=== PATIENT | female | born 1990 | race Two or more races ===

== ENCOUNTER 2024-03-25 07:45 | Outpatient (REF) | payer MEDICAID, SELFPAY ==
[2024-03-25 09:29] LABS: Appearance Urine Cloudy; Color Urine Yellow; Glucose Urine UA Negative (Negative); Leukocyte Esterase Urine Negative (Negative); Nitrite Urine Negative (Negative); Specific Gravity - Urine >= 1.030 (1.005-1.025); Urine Blood Negative (Negative); Urine Ketones Negative (Negative); Urine Protein >=1000 (4+) mg/dL (Neg-Trace)
[2024-03-25 09:36] LABS: Alanine Aminotransferase 18 U/L (0-31); Albumin Level 3.8 g/dL (3.5-5.0); Alkaline Phosphatase 69 U/L (39-117); Anion Gap 9 (12-20); Aspartate Amino Transferase 19 U/L (5-31); Bilirubin Total 0.4 mg/dL (0.0-1.0); Blood Urea Nitrogen 11 mg/dL (9-16); Calcium 9.1 mg/dL (8.4-10.2); Carbon Dioxide 25 mmol/L (22-29); Chloride 107 mmol/L (96-108); Estimated Glomerular Filt Rate 59; Glucose Random 145 mg/dL (60-115); Potassium 3.9 mmol/L (3.3-5.1); Sodium 137 mmol/L (135-145); Total Protein 6.9 g/dL (6.5-8.0)
[2024-03-25 09:53] LABS: Bacteria Urine Trace (None Seen); RBC Urine 0-2 /HPF (0-2); Squamous Epithelial Cell Urine >20 /HPF (0-2); WBC Urine 0-5 /HPF (0-5)
[2024-03-25 10:29] LABS: Creatinine Urine 216.91 mg/dL; Microalbumin Urine > 2000.0 mg/L
== END 2024-03-25 07:46 | disposition home or self-care (01) ==
LOC: HO.LAB 07:45
PROVIDERS: PCP Internal Medicine; Visit Provider Internal Medicine
DX: R80.8 Other proteinuria (principal)
CPT/HCPCS: 36415; 80053; 81001; 82043; 82570

== ENCOUNTER 2024-04-10 14:30 | Outpatient (REF) | payer MEDICAID, SELFPAY ==
[2024-04-10 18:32] LABS: HCG Quantitative < 2 mIU/mL
== END 2024-04-10 14:31 | disposition home or self-care (01) ==
LOC: HO.CHCLDS 14:30
PROVIDERS: Visit Provider Internal Medicine
DX: N92.6 Irregular menstruation, unspecified (principal)
CPT/HCPCS: 36415; 84702

== ENCOUNTER 2024-04-28 14:23 | Outpatient (AMB) | payer MEDICAID, SELFPAY ==
--- NOTE | 2024-04-28 14:32 | HO.NEPHOV ---
Vital Signs 04/28/24 14:36 Height 5 ft Weight 154 lb BMI 30.1 BP 120/80 Blood Pressure Location Rt brachial Position Sitting Intake Visit Reasons: Proteinuria/ Conf Traffic Enumerator Required: No Accompanied by: Sister Allergies No Known Allergies Allergy (Verified 04/28/24 14:40) HPI Comments Details: Michele is a 34 year old patient who moved to [facility] from [place] who is known to have proteinuria for a long time. She was seen for this by renal MD in [place] in the past and had work up including renal biopsy which showed FSGS. She was treated with prednisone as well as cyclosporine in the past . Currently she is on finerenone and lisinopril 2.5 mg. She says that her ACEI could not be increased as it was dropping her BP. She has no edema and denies any frothy/foamy urine. Her last serum creatinine was 1.08. She has no H/O DVT's or PE's. She denies orthostatic symptoms. She has no family H/O FSGS. [facility] Medical History (Updated 04/28/24 @ 22:14 by Richard Betancur MD) Proteinuria Surgical History Hx of tubal ligation Family History (Updated 04/28/24 @ 14:34 by Cate Zarate MA) Paternal Grandmother Hypertension Diabetes High cholesterol Paternal Grandfather Diabetes High cholesterol Hypertension Social History (Updated 04/28/24 @ 14:33 by Cate Zarate MA) Alcohol intake: current Comment: Socially Patient Tobacco Use Status: Never used Tobacco Review of Systems Const All systems reviewed & are unremarkable except as noted in HPI and below Physical Exam Vital Signs: Last Vital Signs BP 120/80 04/28/24 14:36 BMI result Body Mass Index 30.1 Const General: comfortable and no acute distress Orientation/consciousness: patient oriented x3 HEENT Head: Yes normocephalic Mouth: Normal oral and palatal mucosa present Eyes EOM: EOMs intact bilaterally Neck Neck: Yes supple Resp Auscultation: clear to auscultation bilaterally Cardio Jugular venous distension: no JVD Rate: regular rate GI Palpation (GI): Soft to palpation Auscultation: normal bowel sounds General: Yes no CVA tenderness Back/Spine/Pelvis Back: no CVA tenderness Skin General skin exam: no rashes or lesions noted Neuro General: patient oriented x3 and moves all extremities Extrem General: Yes no pedal edema Results Reviewed Nephrology Results: Sodium 137 mmol/L (135-145) 03/25/24 Potassium 3.9 mmol/L (3.3-5.1) 03/25/24 Chloride 107 mmol/L (96-108) 03/25/24 Carbon Dioxide 25 mmol/L (22-29) 03/25/24 BUN 11 mg/dL (9-16) 03/25/24 Creatinine 1.08 mg/dL (0.5-1.4) 03/25/24 Calcium 9.1 mg/dL (8.4-10.2) 03/25/24 Urine Protein >=1000 (4+) mg/dL (Neg-Trace) H 03/25/24 Urine Creatinine 216.91 mg/dL 03/25/24 Assessment & Plan Assessment & Plan (1) Proteinuria: Code(s): R80.9 - Proteinuria, unspecified Category: Medical Qualifiers: Proteinuria type: other Qualified Code(s): R80.8 - Other proteinuria (2) FSGS (focal segmental glomerulosclerosis): Code(s): N05.1 - Unspecified nephritic syndrome with focal and segmental glomerular lesions Category: Medical Plan Michele has H/O biopsy proven FSGS which was treated with prednisone as well as cyclosporin in [place]. Currently she is on Finerenone as well as lisinopril 2.5 mg daily which I increased to 2.5 mg bid. She needs to cut back sodium in the diet. I ordered further work up and requested her renal records from [place]. She may need a repeat renal biopsy as well as addition of further medications based on evolving data. She should avoid NSAID's. Time spent retrieving records, reviewing them, patient encounter and documentation 58 minutes. Answered all questions. F/U given Orders: Orders Proteinase 3 PR3 Antibodies Today R80.9 - Proteinuria, unspecified Immunofixation Pnl, Serum Today R80.9 - Proteinuria, unspecified Phospholipase A2 Receptor Pnl Today R80.9 - Proteinuria, unspecified Blood Urea Nitrogen Today R80.9 - Proteinuria, unspecified Creatinine Today R80.9 - Proteinuria, unspecified Complete Blood Count Auto Diff Today R80.9 - Proteinuria, unspecified Protein, 24 Hr Urine Group Today R80.8 - Other proteinuria Anti DNA DS Antibody Today R80.9 - Proteinuria, unspecified Myeloperoxidase Antibody Today R80.9 - Proteinuria, unspecified Anti Glomerular Basement Memb Today R80.9 - Proteinuria, unspecified Complement C3 Today R80.9 - Proteinuria, unspecified Complement C4 Today R80.9 - Proteinuria, unspecified Hepatitis C Antibody Reflex Today R80.9 - Proteinuria, unspecified Hepatitis B Surface Antigen Today R80.9 - Proteinuria, unspecified Electrolytes Today R80.9 - Proteinuria, unspecified Immunofixation, Random Urine Today R80.9 - Proteinuria, unspecified Rheumatoid Factor Today R80.9 - Proteinuria, unspecified Medications: New lisinopril 2.5 mg PO BID 60 tabs 1RF Coding Level of Care Code New Pt Level 5 (20649) Diagnoses Other proteinuria R80.8 Proteinuria type: other FSGS (focal segmental glomerulosclerosis) N05.1
[2024-04-28 14:36] VITALS: BP 120/80; BMI 30.1
== END 2024-04-28 15:03 | disposition home or self-care (01) ==
PROVIDERS: PCP Internal Medicine; Referring Provider Internal Medicine; Visit Provider Internal Medicine Nephrology
DX: R80.8 Other proteinuria (principal); N05.1 Unspecified nephritic syndrome with focal and segmental glomerular lesions
CPT/HCPCS: 99205

== ENCOUNTER → 2024-04-28 14:23 | Outpatient (BNVA) | payer MEDICAID, SELFPAY | PROVIDERS: PCP Internal Medicine; Referring Provider Internal Medicine; Visit Provider Internal Medicine Nephrology | DX: R80.8 Other proteinuria (principal); N05.1 Unspecified nephritic syndrome with focal and segmental glomerular lesions | CPT/HCPCS: 99202 ==

== ENCOUNTER 2024-04-30 09:19 | Outpatient (REF) | payer MEDICAID, SELFPAY ==
[2024-04-30 09:45] LABS: MANUAL DIFF FLAG NO
[2024-04-30 10:11] LABS: Basophils Absolute Auto 0.1 X10*3/uL (0.0-0.2); Basophils Percent Auto 0.6 % (0-2); Eosinophils Absolute Auto 0.3 X10*3/uL (0.0-0.4); Eosinophils Percent Auto 3.5 % (0-4); Hematocrit 39.6 % (37.0-47.0); Hemoglobin 13.3 g/dl (12.0-16.0); Imm Gran Abs Auto 0.01 X10*3/uL (0.00-0.03); Imm Gran Pct Auto 0.1 % (0.0-0.4); Lymphocytes Absolute Auto 1.9 X10*3/uL (1.2-4.9); Lymphocytes Percent Auto 22.3 % (20-40); Mean Corpuscular HGB Conc 33.6 g/dl (31.0-35.0); Mean Corpuscular Hemoglobin 29.2 pg (27.0-33.0); Mean Corpuscular Volume 86.8 fL (80.0-98.0); Mean Platelet Volume 11.1 fL (9.4-12.3); Monocytes Absolute Auto 0.5 X10*3/uL (0.1-1.2); Monocytes Percent Auto 6.1 % (2-11); Neutrophils Absolute Auto 5.6 x10*3/uL (2.0-8.3); Neutrophils Percent Auto 67.4 % (45-73); Platelet Count 379 X10*3/uL (160-400); Red Blood Count 4.56 X10*6/uL (4.20-5.50); Red Cell Distribution Width 12.8 % (11.0-16.0); White Blood Count 8.3 X10*3/uL (4.8-10.8)
[2024-04-30 10:44] LABS: Anion Gap 12 (12-20); Blood Urea Nitrogen 11 mg/dL (9-16); Carbon Dioxide 22 mmol/L (22-29); Chloride 111 mmol/L (96-108); Estimated Glomerular Filt Rate > 60; Potassium 3.7 mmol/L (3.3-5.1); Rheumatoid Factor < 13.0 IU/mL (<15.0); Sodium 141 mmol/L (135-145)
[2024-04-30 11:06] LABS: HBsAGNum1 0.35 S/CO (0.00-0.99); Hepatitis B Surface Antigen Negative (Negative); ~HepC Num1 0.13 S/CO (0.00-0.79); ~Hepatitis C Antibody Nonreactive (Nonreactive)
[2024-05-01 16:08] LABS: Anti DNA DS Antibody 1 IU/mL; Anti Glomerular Basement Memb <1.0 AI; Myeloperoxidase Antibody <1.0 AI; Proteinase 3 PR3 Antibodies <1.0 AI
[2024-05-01 22:48] LABS: IgA 96 mg/dL (47-310); IgG 994 mg/dL (600-1640); IgM 181 mg/dL (50-300)
[2024-05-05 11:09] LABS: Complement C3 157 mg/dL (83-193)
[2024-05-08 22:59] LABS: Phospholipase A2 IgG ELISA 7 RU/mL; Phospholipase A2 IgG IFA NEGATIVE (NEGATIVE)
== END 2024-04-30 09:20 | disposition home or self-care (01) ==
LOC: HO.LAB 09:19
PROVIDERS: PCP Internal Medicine; Visit Provider Internal Medicine Nephrology
DX: R80.9 Proteinuria, unspecified (principal)
CPT/HCPCS: 80051; 82565; 82784; 83520; 84520; 85025; 86021; 86160; 86225; 86255; 86334; 86335; 86431; 86803; 87340

== ENCOUNTER 2024-05-26 12:49 | Outpatient (REF) | payer MEDICAID, SELFPAY ==
[2024-05-26 14:17] LABS: Creatinine, mg/dL 134.15
[2024-05-26 15:15] LABS: Protein mg/dL 476 mg/dL
[2024-05-26 16:42] LABS: Creatinine, 24Hr Urine 1.1 G/Day (1.0-2.0); Protein 24 Hr Urine 4046 mg/Day (<150); Total Volume 24 Hour Urine 850 mL
== END 2024-05-26 12:50 | disposition home or self-care (01) ==
LOC: HO.LNP 12:49
PROVIDERS: Visit Provider Internal Medicine Nephrology
DX: R80.8 Other proteinuria (principal)
CPT/HCPCS: 84156

== ENCOUNTER 2024-05-30 15:15 | Outpatient (AMB) | payer MEDICAID, SELFPAY ==
--- NOTE | 2024-05-30 15:16 | HO.NEPHOV_ITS ---
Vital Signs 05/30/24 15:17 Height 5 ft Weight 154 lb BMI 30.1 BP 152/82 H Blood Pressure Location Rt brachial Position Sitting Pulse 100 Pulse Source Pulse Oximeter Pulse Oximetry (%) 97 Oxygen Delivery Method Room Air Intake Visit Reasons: Proteinuria-Conf Patient Ombudsperson Required: No Accompanied by: Sister Allergies No Known Allergies Allergy (Verified 05/30/24 15:19) HPI Comments Details: Michele is a 34 year old patient who moved to [facility] from [place] who is know n to have proteinuria for a long time. She was seen for this by renal MD in [place] in the past and had work up including renal biopsy which showed FSGS. She was treated with prednisone as well as cyclosporine in the past . Currently she is on finerenone and lisinopril 2.5 mg. She says that her ACEI could not be increased as it was dropping her BP. She has no edema and denies any frothy/foamy urine. Her last serum creatinine was 1.08. She has no H/O DVT's or PE's. She denies orthostatic symptoms. She has no family H/O FSGS. [facility] Medical History (Updated 05/30/24 @ 15:33 by Richard Betancur MD) Proteinuria Surgical History Hx of tubal ligation Family History (Updated 04/28/24 @ 14:34 by Cate Zarate MA) Paternal Grandmother Hypertension Diabetes High cholesterol Paternal Grandfather Diabetes High cholesterol Hypertension Social History (Updated 04/28/24 @ 14:33 by Cate Zarate MA) Alcohol intake: current Comment: Socially Patient Tobacco Use Status: Never used Tobacco Review of Systems Const All systems reviewed & are unremarkable except as noted in HPI and below Physical Exam Const General: comfortable and no acute distress Orientation/consciousness: patient oriented x3 HEENT Head: Yes normocephalic Mouth: Normal oral and palatal mucosa present Eyes EOM: EOMs intact bilaterally Neck Neck: Yes supple Resp Auscultation: clear to auscultation bilaterally Cardio Jugular venous distension: no JVD Rate: regular rate GI Palpation (GI): Soft to palpation Auscultation: normal bowel sounds General: Yes no CVA tenderness Back/Spine/Pelvis Back: no CVA tenderness Skin General skin exam: no rashes or lesions noted Neuro General: patient oriented x3 and moves all extremities Extrem General: Yes no pedal edema Results Reviewed Nephrology Results: Hgb 13.3 g/dl (12.0-16.0) 04/30/24 WBC 8.3 X10*3/uL (4.8-10.8) 04/30/24 Plt Count 379 X10*3/uL (160-400) 04/30/24 Sodium 141 mmol/L (135-145) 04/30/24 Potassium 3.7 mmol/L (3.3-5.1) 04/30/24 Chloride 111 mmol/L (96-108) H 04/30/24 Carbon Dioxide 22 mmol/L (22-29) 04/30/24 BUN 11 mg/dL (9-16) 04/30/24 Creatinine 1.01 mg/dL (0.5-1.4) 04/30/24 Calcium 9.1 mg/dL (8.4-10.2) 03/25/24 Urine Protein >=1000 (4+) mg/dL (Neg-Trace) H 4 Urine Creatinine 216.91 mg/dL 03/25/24 Assessment & Plan Assessment & Plan (1) FSGS (focal segmental glomerulosclerosis): Code(s): N05.1 - Unspecified nephritic syndrome with focal and segmental glomerular lesions Category: Medical (2) Proteinuria: Code(s): R80.9 - Proteinuria, unspecified Category: Medical Qualifiers: Proteinuria type: other Qualified Code(s): R80.8 - Other proteinuria (3) Dyslipidemia: Code(s): E78.5 - Hyperlipidemia, unspecified Category: Medical Plan Michele has H/O biopsy proven FSGS which was treated with prednisone as well as cyclosporin in [place]. Currently she is on Finerenone as well as lisinopril 2.5 mg daily which I increased to 5 mg bid. She needs to cut back sodium in the diet. I have requested her renal records from [place]. She may need a repeat renal biopsy as well as addition of further medications based on evolving data. She should avoid NSAID's. Answered all questions. F/U given Orders: Orders Creatinine 1 Month N05.1 - Unspecified nephritic syndrome with focal and segmental glomerular lesions, R80.8 - Other proteinuria Lipid Panel 1 Month E78.5 - Hyperlipidemia, unspecified, N05.1 - Unspecified nephritic syndrome with focal and segmental glomerular lesions, R80.8 - Other proteinuria Blood Urea Nitrogen 1 Month N05.1 - Unspecified nephritic syndrome with focal and segmental glomerular lesions, R80.8 - Other proteinuria Electrolytes 1 Month N05.1 - Unspecified nephritic syndrome with focal and segmental glomerular lesions, R80.8 - Other proteinuria Protein Creatinine Ratio, Ur 1 Month E78.5 - Hyperlipidemia, unspecified, N05.1 - Unspecified nephritic syndrome with focal and segmental glomerular lesions, R80.8 - Other proteinuria Vitamin D 25-OH Total 1 Month E78.5 - Hyperlipidemia, unspecified, N05.1 - Unspecified nephritic syndrome with focal and segmental glomerular lesions, R80.8 - Other proteinuria Coding Level of Care Code Est Pt Level 4 (70278) Diagnoses FSGS (focal segmental glomerulosclerosis) N05.1 Other proteinuria R80.8 Proteinuria type: other Dyslipidemia E78.5
[2024-05-30 15:17] VITALS: BP 152/82; PULSE 100; O2SAT 97; BMI 30.1
== END 2024-05-30 15:45 | disposition home or self-care (01) ==
PROVIDERS: PCP Internal Medicine; Visit Provider Internal Medicine Nephrology
DX: N05.1 Unspecified nephritic syndrome with focal and segmental glomerular lesions (principal); R80.8 Other proteinuria; E78.5 Hyperlipidemia, unspecified
CPT/HCPCS: 99214

== ENCOUNTER → 2024-05-30 15:15 | Outpatient (BNVA) | payer MEDICAID, SELFPAY | PROVIDERS: PCP Internal Medicine; Visit Provider Internal Medicine Nephrology | DX: N05.1 Unspecified nephritic syndrome with focal and segmental glomerular lesions (principal); R80.8 Other proteinuria; E78.5 Hyperlipidemia, unspecified | CPT/HCPCS: 99212 ==

== ENCOUNTER 2024-06-25 08:38 | Outpatient (REF) | payer MEDICAID, SELFPAY ==
--- OUTSIDE RECORDS SUMMARY | 2024-06-25 08:41 | XMS_ITS | Encounter Summary ---
Author Organization [employer] Address [address] [place] [address] Care Team Providers Care Car Rider Name Role Phone Cipriano Palacio MD Primary Care Prov ider Reason for Visit * Reason Onset Date Comments Results 03/27/2024 Encounter Details Date Type Department Care Team ([facility] st Contact Info) Description 03/27/2024 Telephone [facility] [address] [place] [address] Cipriano Palacio MD [address] [place] [id number] Results Social History Tobacco Use Types Packs/Day Years Used Date Smoking Tobacco: Never Smokeless Tobacco: Never Alcohol Use Standard Drinks/Week Comments Never 0 (1 standard drink = 0.6 oz pur e alcohol) Depression Answer Date Recorded Patient Health Questionnaire-9 Score 2 03/24/2024 Patient Health Questionnaire-9 Score 2 03/24/2024 Last PHQ-9: Questionnaire Data Not on file 1 05/24/2023 Depression Answer Date Recorded Patient Health Questionnaire-2 Score 2 03/24/2024 Comments Unknown Sex and Gender Information Value Date Recorded Sex Assigned at Female 03/24/2024 8:11 AM EST Legal Sex Female 3:15 PM EDT Gender Identity Female 03/24/2024 8:11 AM EST Sexual Orientation Straight 03/24/2024 8: 11 AM EST documented as of this encounter Miscellaneous Notes * Telephone Encounter - Dung Escalante RN - 03/27/2024 4:25 PM EST Pt requesting lab results. Please review and advise nurse's of results/plan. Has upcoming appt nextweek. Thanks. * Telephone Encounter - Sina Weber - 03/27/2024 3:52 PM EST TC from pt requesting call back regarding Results. Type of results: Labs Date when done: 03/25/24 Facility: [facility] ([place] Speaker) documented in this encounter Plan of Treatment Not on file documented as of this encounter Visit Diagnoses Not on filedocumented in this encounter Additional Health Concerns Assessment Noted Time PHQ-9 Depression Total Score: 2 03/24/20 9:25 AM EST documented as of this encounter Care Teams Car Rider Relationship Specialty Start Date End Date Cipriano Palacio MD [address] [place] [id number] PCP - General Internal Medicine 03/24/24 documented as of this encounter
--- OUTSIDE RECORDS SUMMARY | 2024-06-25 08:41 | XMS_ITS | Clinical Summary ---
Author Organization [employer] Address [address] [facility] [address] [place] [address] Care Team Providers Care Category Analyst Name Role Phone Cipriano Palacio MD Primary Care Prov ider Allergies No known active allergies Medications lisinopril 2.5 MG tablet Take 1 tablet (2.5 mg) by mouth Once per day. 30 tablet 11 03/24/2024 5 Active Blood Pressure kit 1 kit Once per day. 1 kit 03/24/2024 Active famotidine (Pepcid) 20 MG tablet Take 1 tablet (20 mg) by mouth 2 times daily. 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 Assessment & Plan (04/02/2024 10:23 AM EST): On kerendia and lisinopril, referral to nephrology sent, Prediabetes 04/02/2024 Assessment & Plan (04/02/2024 10:24 AM EST): A1c 5.9%, lifestyle modifications were discussed, low carb/no sugar diet reinforced, follow up in 6 months Vaccination refused by patient 04/02/2024 Assessment & Plan (04/02/2024 10:25 AM EST): Refused vaccination Encounter for medical examination to establish c are 03/24/2024 Assessment & Plan (03/24/2024 2:46 PM EST): Last pcp follow up : 3 months ago No hx of hospitalization No er visit on the past year Pmhx: proteinuria Pshx: tubal ligation 2013 All: - Meds: kerendia 10mg, lisinopril 2.5mg A2 Other proteinuria 03/24/2024 Assessment & Plan (03/24/2024 2:49 PM EST): Patient moved from [place], she had kidney biopsy, is on kerendia 10mg and lisinopril 2.5mg, will refer to nephrology Infertility counseling 03/24/2024 Assessment & Plan (03/24/2024 2:51 PM EST): Patient underwent tubal ligation 10 years ago, she is interested in getting , will refer to fertility clinic to review options Encounters Date Type Department Care Team Description 06/23/2024 Telephone [facility] [address] [place] [address] Cipriano Palacio MD Nurse Triage 04/30/2024 Orders Only GENERIC EXTERNAL DATA DEPARTMENT Provider, Generic External Data 04/10/2024 1:15 PM EST Telemedicine [facility] [address] [place] [address] Cipriano Palacio MD Missed period (Primary Dx) 04/10/2024 Travel 04/09/[address] [address] Cipriano Palacio MD Nurse Triage 04/08/[address] [address] Cipriano Palacio MD Nurse Triage 04/02/2024 8:30 AM EST Office Visit [facility] [address] [place] [address] Cipriano Palacio MD Focal segmental glomerulosclerosis (Primary Dx); Prediabetes; Vaccination refused by patient 04/02/2024 Telephone [facility] [address] [place] [address] Cipriano Palacio MD 04/02/2024 Travel 04/01/2024 Telephone [facility]S [address] [place] [address] Cipriano Palacio MD Chart Prep 03/27/2024 Telephone [facility] MEDICINE [address] [place] [address] Cipriano Palacio MD Results 03/25/2024 Telephone [facility] MEDICINE [address] [place] [address] Cipriano Palacio MD Lab Orders from Last 3 Months Family History Medical History Relation Name Comments Diabetes Father Hyperlipidemia Father Hypertension Father heart condition Father No Known Problems Mother Diabetes Paternal Grandmother Hypertension Paternal Grandmother Cancer Neg Hx Relation Name Status Comments Father Mother Paternal Grandmother Social History Tobacco Use Types Packs/Day Years Used Date Smoking Tobacco: Never Smokeless Tobacco: Never Tobacco Cessation:Counseling Given: Not Answered Alcohol Use Standard Drinks/Week Comments Never 0 [...] Orientation Straight 03/24/2024 8: 11 AM EST Last Filed Vital Signs Vital Sign Reading Time Taken Comments Blood Pressure 122/84 04/02/2024 8:58 AM EST Pulse 70 04/02/2024 8:58 AM EST Temperature 36.8 ??C (98.3 ??F) 04/02/2024 8:58 AM ES T Respiratory Rate 16 04/02/2024 8:58 AM EST Oxygen Saturation - - Inhaled Oxygen Concentration - - Weight 68.5 kg (151 lb) 04/02/2024 8:58 AM EST Height 152.4 cm (5') 04/02/2024 8:58 AM EST Body Mass Index 29.49 04/02/2024 8:58 AM EST Plan of Treatment Health Maintenance Due Date Last Done Comments HIV Screening 1992 SDOH Screening 1992 Alcohol/Substance Use Screening 2004 Family Planning (PISQ) 01/24/2007 DTaP/Tdap/Td Vaccines (1 - Tdap) 01/24/2011 Hepatitis B Vaccines (1 of 3 - 19+ 3-dose series) 01/24/2011 Pap Smear 01/24/2013 Cervical Cancer Screening 01/24/2022 HPV/Cotest 01/24/2022 COVID-19 Vaccine (1 - 2023-2 5 season) 2024 Influenza Vaccine (#1) 2024 Depression Screening 03/24/2025 03/24/2024, 03/24/2024 Tobacco Screening 03/24/2025 03/24/2024 Diabetes: Hemoglobin A1C 04/02/2025 04/02/2024 Zoster Vaccines (1 of 2) 01/24/2042 RSV Patients and Patients Aged 60 years or older (1 - 1-dose 75+ series) 01/24/2067 Hepatitis C Screening Completed 04/30/2024 HIB Vaccines Aged Out No longer eligi ble based on patient's age to complete this topic HPV Vaccines Aged Out No longer eligi ble based on patient's age to complete this topic Hepatitis A Vaccines Aged Out No long er eligible based on patient's age to complete this topic IPV Vaccines Aged Out No longer eligi ble based on patient's age to complete this topic Meningococcal Vaccine Aged Out No mery jodi eligible based on patient's age to complete this topic Pneumococcal Vaccine: Pediatrics (0 to 5 Years) and At-Risk Patients (6 to 49) Years) Aged Out No longer eligible b ased on patient's age to complete this topic RSV under 20 months Aged Out No longe r eligible based on patient's age to complete this topic Rotavirus Vaccines Aged Out No longer eligible based on patient's age to complete this topic Procedures Procedure Name Priority Date/Time Associated Diagnosis Comments PHOSPHOLIPASE A2 RECEPTOR (PLA2R) AB PANEL Routine 04/30/2024 9:42 AM EST COMPLEMENT COMPONENT C4C Routine 04/30/2024 9:42 AM EST COMPLEMENT COMPONENT C3C Routine 04/30/2024 9:42 AM EST IMMUNOFIXATION, SERUM Routine 04/30/2024 9:42 AM EST PROTEINASE-3 ANTIBODY Routine 04/30/2024 9:42 AM EST MYELOPEROXIDASE ANTIBODY (MPO) Routine 04/30/2024 9:42 AM EST GLOMERULAR BASEMENT MEMBRANE ANTIBODY (IGG) Routine 04/30/2024 9:42 AM EST DNA (DS) ANTIBODY Routine 04/30/2024 9:4 2 AM EST HEPATITIS B SURFACE ANTIGEN, EIA Routine 04/30/2024 9:42 AM EST HEPATITIS C AB W/REFL TO HCV RNA, QN, PCR Routine 04/30/2024 9:42 AM EST RHEUMATOID FACTOR Routine 04/30/2024 9:4 2 AM EST CREATININE, SERUM Routine 04/30/2024 9:4 2 AM EST UREA NITROGEN (BUN) Routine 04/30/2024 9 :42 AM EST ELECTROLYTE PANEL Routine 04/30/2024 9:4 2 AM EST CBC WITH AUTO DIFFERENTIAL Routine 04/30/2024 9:42 AM EST IMMUNOFIXATION, URINE Routine 04/30/2024 9:31 AM EST HCG, TOTAL, QN Routine 04/10/2024 2:31 PM EST Missed period POCT GLYCATED HEMOGLOBIN, TOTAL Routine 04/02/2024 10:00 AM EST Prediabetes COMPREHENSIVE METABOLIC PANEL Routine 03/25/2024 8:01 AM EST Other proteinuria ALBUMIN, RANDOM URINE W/CREATININE Routine 03/25/2024 7:58 AM EST Other proteinuria URINALYSIS, COMPLETE Routine 03/25/2024 7:58 AM EST Other proteinuria from Last 3 Months Results * Proteinase-3 Antibody (04/30/2024 9:42 AM EST) Proteinase-3 Antibody <1.0 [facility] Comment:Value Interpretation ----- <1.0 No Antibody Detected > or = 1.0 Antibody DetectedAutoantibodies to proteinase-3 (MI-3) are accepted ascharacteristic for granulomatosis with polyangiitis(GPA, Destiney's), and are detectable in 95% of thehistologically proven cases. The cytoplasmic IFApattern, (c-ANCA), is based largely on autoantibody toPR-3 which serves as the primary antigen.These autoantibodies are present in active disease.THIS TEST WAS PERFORMED AT:[employer] [place] [id number] WATERS MD 04/30/2024 9:42 AM EST 04/30/2024 9:42 AM EST us Generic External Data Provider LAB BLOOD ORDERAB LES Final Result [facility] [address] [place] [phone] * Myeloperoxidase Antibody (MPO) (04/30/2024 9:42 AM EST) Myeloperoxidase Antibody <1.0 [facility] Comment:Value Interpretation ----- <1.0 No Antibody Detected > or = 1.0 Antibody DetectedAutoantibodies to myeloperoxidase (MPO) are commonlyassociated with the following small-vesselvasculitides: microscopic polyangiitis,polyarteritis nodosa, Churg-Ewa syndrome,necrotizing and crescentic glomerulonephritis andoccasionally granulomatosis with polyangiitis(GPA, Destiney's). The perinuclear IFA pattern,(p-ANCA) is based largely on autoantibody tomyeloperoxidase which serves as the primary antigen.These autoantibodies are present in active disease.THIS TEST WAS PERFORMED AT:[employer] [address] [id number] WATERS MD 04/30/2024 9:42 AM EST 04/30/2024 9:42 AM EST Generic External Data Provider LAB BLOOD ORDERAB LES Final Result Performing Organization Address [facility] de Phone Number [facility] [address] [place] [phone] * Phospholipase A2 Receptor (PLA2R) Antibody Panel (04/30/2024 9:42 AM EST) Phospholipase A2 Receptor (PLA2R) Ab, SIRIA 7 RU/mL [facility] Comment:Reference Range: <14 : NEGATIVE 14-19: BORDERLINE >19: POSITIVE Phospholipase A2 Receptor (PLA2R) Ab, IFA NEGATIVE NEGATIVE [facility] Comment:THIS TEST WAS PERFOR MED AT:[employer]/[id number] [place] [id number] CROWDER MD,PHD,SHANE 04/30/2024 9:42 AM EST 04/30/2024 9:42 AM EST Generic External Data Provider LAB BLOOD ORDERAB LES Final Result Performing Organization Address [facility] Co de Phone Number [facility] [address] [place] [phone] * Creatinine, Serum (04/30/2024 9:42 AM EST) Creatinine, Serum 1.01 0.5 - 1.4 mg/dL [facility] Estimated Glomerular Filt Rate >60 [facility] Comment:Chronic Kidney Disea se: Estimated GFR < 60 mL/min/1.50v8[place] Kidney Disease: Estimated GFR < 15 mL/min/1.73m2 04/30/2024 9:42 AM EST 04/30/2024 9:42 AM EST us Generic External Data Provider LAB BLOOD ORDERAB LES Final Result [facility] [address] [place] [address] [phone] * CBC auto differential (04/30/2024 9:42 AM EST) White Blood Count 8.3 4.8 - 10.8 X10*3/uL [facility] Red Blood Count 4.56 4.20 - 5.50 X10*6/uL [facility] Hemoglobin 13.3 12.0 - 16.0 g/dl [facility] Hematocrit 39.6 37.0 - 47.0 % [facility] Mean Corpuscular Volume 86.8 80.0 - 98.0 fL [facility] Mean Corpuscular Hemoglobin 29.2 27.0 - 33.0 pg [facility] Mean Corpuscular HGB Conc 33.6 31.0 - 35.0 g/dl [facility] Red Cell Distribution Width 12.8 11.0 - 16.0 % [facility] Platelet Count 379 160 - 400 X10*3/uL [facility] Mean Platelet Volume 11.1 9.4 - 12.3 fL [facility] Neutrophils Percent Auto 67.4 45 - 73 % [facility] Imm Gran Pct Auto 0.1 0.0 - 0.4 % [facility] Lymphocytes Percent Auto 22.3 20 - 40 % [facility] Monocytes Percent Auto 6.1 2 - 11 % [facility] Eosinophils Percent Auto 3.5 0 - 4 % [facility] Basophils Percent Auto 0.6 0 - 2 % [facility] NRBC Pct Auto 0.0 0.0 - 0.2 /100WBC [facility] Neutrophils Absolute Auto 5.6 2.0 - 8.3 x10*3/uL [facility] Imm Gran Abs Auto 0.01 0.00 - 0.03 X10*3/uL [facility] Lymphocytes Absolute Auto 1.9 1.2 - 4.9 X10*3/uL [facility] Monocytes Absolute Auto 0.5 0.1 - 1.2 X10*3/uL [facility] Eosinophils Absolute Auto 0.3 0.0 - 0.4 X10*3/uL [facility] Basophils Absolute Auto 0.1 0.0 - 0.2 X10*3/uL [facility] NRBC Abs Auto 0.000 0.0 - 0.012 X10*3/uL [facility] 04/30/2024 9:42 AM EST 04/30/2024 9:42 AM EST Generic External Data Provider LAB BLOOD ORDERAB LES Final Result Performing Organization Address [facility] Co de Phone Number [facility] [address] [place] [phone] * Hepatitis C Antibody with Reflex to HCV, RNA, Quantitative, Real-Time PCR (04/30/2024 9:42 AM EST) Hepatitis C Antibody Nonreactive Nonreactive [facility] Comment:Antibodies to HCV no t detected; does not exclude early acuteHCV infection. 04/30/2024 9:42 AM EST 04/30/2024 9:42 AM EST Generic External Data Provider LAB BLOOD ORDERAB LES Final Result Performing Organization Address [facility] Co de Phone Number [facility] [address] [place] [phone] * Glomerular Basement Membrane Antibody (IgG) (04/30/2024 9:42 AM EST) Glomerular Basement Memebrane Antibody (IgG) <1.0 AI [facility] Comment:Value Interpretation ----- <1.0 No Antibody Detected > or = 1.0 Antibody DetectedTHIS TEST WAS PERFORMED AT:[employer] [place] [id number] WATERS MD 04/30/2024 9:42 AM EST 04/30/2024 9:42 AM EST Generic External Data Provider LAB BLOOD ORDERAB LES Final Result Performing Organization Address [facility] Phone Number [facility] [address] [place] [phone] * DNA (ds) Antibody (04/30/2024 9:42 AM EST) Anti DNA DS Antibody 1 IU/mL [facility] Comment:IU/mL Interpretation < or = 4 Negative 5-9 Indeterminate > or = 10 PositiveTHIS TEST WAS PERFORMED AT:[employer] [address] [id number] WATERS MD 04/30/2024 9:42 AM EST 04/30/2024 9:42 AM EST Generic External Data Provider LAB BLOOD ORDERAB LES Final Result Performing Organization Address [facility] de Phone Number [facility] [address] [place] [phone] * Hepatitis B surface antigen, EIA (04/30/2024 9:42 AM EST) Hepatitis B Surface Ag Negative Negative [facility] 04/30/2024 9:42 AM EST 04/30/2024 9:42 AM EST Generic External Data Provider LAB BLOOD ORDERAB LES Final Result Performing Organization Address [facility] Phone Number [facility] [address] [place] [phone] * Rheumatoid Factor (04/30/2024 9:42 AM EST) Rheumatoid Factor <13.0 <15.0 IU/mL [facility] 04/30/2024 9:42 AM EST 04/30/2024 9:42 AM EST us Generic External Data Provider LAB BLOOD ORDERAB LES Final Result Performing Organization Address [facility] Phone Number [facility] [address] [place] [phone] * Immunofixation, Serum (04/30/2024 9:42 AM EST) Pathologist [facility] IMMUNOGLOBULIN G 994 600 - 1640 mg/dL [facility] IMMUNOGLOBULIN A 96 47 - 310 mg/dL [facility] Immunoglobulin M 181 50 - 300 mg/dL [facility] Comment:THIS TEST WAS PERFOR MED AT:[employer] [place] [id number] WATERS MD Immunofixation Result SEE NOTE [facility] Comment:Normal pattern. No m onoclonal proteins detected. 04/30/2024 9:42 AM EST 04/30/2024 9:42 AM EST us Generic External Data Provider LAB BLOOD ORDERAB LES Final Result Performing Organization Address [facility] de Phone Number [facility] [address] [place] [phone] * Complement Component C3c (04/30/2024 9:42 AM EST) Complement C3 157 83 - 193 mg/dL [facility] Comment:THIS TEST WAS PERFOR MED AT:[employer] [place] [id number] WATERS MD 04/30/2024 9:42 AM EST 04/30/2024 9:42 AM EST us Generic External Data Provider LAB BLOOD ORDERAB LES Final Result Performing Organization Address [facility] de Phone Number [facility] [address] [place] [phone] * Complement Component C4c (04/30/2024 9:42 AM EST) Complement C4 29 15 - 57 mg/dL [facility] Comment:THIS TEST WAS PERFOR MED AT:[employer] [place] [id number] WATERS MD 04/30/2024 9:42 AM EST 04/30/2024 9:42 AM EST Generic External Data Provider LAB BLOOD ORDERAB LES Final Result Performing Organization Address [facility] Co de Phone Number [facility] [address] [place] [phone] * BUN (Blood Urea Nitrogen) (04/30/2024 9:42 AM EST) Urea Nitrogen (BUN) 11 9 - 16 mg/dL [facility] 04/30/2024 9:42 AM EST 04/30/2024 9:42 AM EST us Generic External Data Provider LAB BLOOD ORDERAB LES Final Result Performing Organization Address [facility] de Phone Number [facility] [address] [place] [phone] * (ABNORMAL) Electrolyte Panel (04/30/2024 9:42 AM EST) Sodium 141 135 - 145 mmol/L [facility] Potassium 3.7 3.3 - 5.1 mmol/L [facility] Chloride 111(H) 96 - 108 mmol/L [facility] Carbon Dioxide 22 22 - 29 mmol/L [facility] Anion Gap 12 12 - 20 [facility] 04/30/2024 9:42 AM EST 04/30/2024 9:42 AM EST us Generic External Data Provider LAB BLOOD ORDERAB LES Final Result Performing Organization Address [facility] Co de Phone Number [facility] [address] [place] [phone] * Immunofixation (LC), Urine (04/30/2024 9:31 AM EST) LC Interpretation [facility] Comment:No monoclonal protei ns detected.The supplier of the testing reagents for this assayhas changed. Detection of small monoclonal proteins mayvary by test system.THIS TEST WAS PERFORMED AT:[employer] [place] [id number] WATERS MD 04/30/2024 9:31 AM EST 04/30/2024 10:03 AM EST Generic External Data Provider LAB URINE ORDERAB LES Final Result Performing Organization Address [facility] de Phone Number [facility] [address] [place] [phone] * hCG, Total, Quantitative (04/10/2024 2:31 PM EST) HCG Quantitative <2 mIU/mL [facility] Comment:Weeks post LMP Appro ximate hCG(Last Menstrual Period) Range (mIU/ml)3 - 4 weeks 9 - 1304 - 5 weeks 75 - 2,6005 - 6 weeks 850 - 20,8006 - 7 weeks 4000 - 100,2007 - 12 weeks 11,500 - 289,34333 - 16 weeks 18,300 - 137,95751 - 29 weeks (2nd trimester) 1,400 - 53,73087 - 41 weeks (3rd trimester) 940 - 60,000The Winston B- hCG assay is used for the early detection ofpregnancy; it cannot be used to diagnose any conditionunrelated to . If a B-hCG level is not supportedby the clinical evidence, results should be confirmed by analternative method (qualitative urine hCG, for example). Blood Venous blood specimen / Unknown 04/10/2024 2:31 PM EST 04/10/2024 5:47 PM EST Cipriano Pickens MD LAB BLOOD ORDERABL ES Final Result [facility] [address] [place] [phone] * POCT HGB A1C (04/02/2024 10:00 AM EST) Hemoglobin A1C 5.9 4.0 - 6.0 % QC Media Lot # [id number] Lot# Expiration Date Blood 04/02/2024 10:0 0 AM EST Cipriano Pickens MD POINT OF CARE TEST ENTER/EDIT ORDERABLES Final Result * (ABNORMAL) Comprehensive Metabolic Panel (03/25/2024 8:01 AM EST) Sodium 137 135 - 145 mmol/L [facility] Potassium 3.9 3.3 - 5.1 mmol/L [facility] Chloride 107 96 - 108 mmol/L [facility] Carbon Dioxide 25 22 - 29 mmol/L [facility] Anion Gap 9(L) 12 - 20 [facility] Urea Nitrogen (BUN) 11 9 - 16 mg/dL [facility] Creatinine, Serum 1.08 0.5 - 1.4 mg/dL [facility] Estimated Glomerular Filt Rate 59 [facility] Comment:NOTE: For -Am erican individuals, multiply the result by 1.210.Chronic Kidney Disease: Estimated GFR < 60 mL/min/1.43o3[place] Kidney Disease: Estimated GFR < 15 mL/min/1.73m2 Glucose 145(H) 60 - 115 mg/dL [facility] Calcium 9.1 8.4 - 10.2 mg/dL [facility] Bilirubin, Total 0.4 0.0 - 1.0 mg/dL [facility] Aspartate Amino Transferase 19 5 - 31 U/L [facility] Alanine Aminotransferase 18 0 - 31 U/L [facility] Total Protein 6.9 6.5 - 8.0 g/dL [facility] Albumin Level 3.8 3.5 - 5.0 g/dL [facility] Alkaline Phosphatase 69 39 - 117 U/L [facility] Blood Venous blood specimen / Unknown 03/25/2024 8:01 AM EST 03/25/2024 8:01 AM EST Cipriano Pickens MD LAB BLOOD ORDERABL ES Final Result Performing Organization Address [facility] de Phone Number [facility] [address] [place] [address] [phone] * (ABNORMAL) Albumin, Random Urine W/Creatinine (03/25/2024 7:58 AM EST) Creatinine, Urine 216.91 mg/dL [facility] Microalbumin Urine >2,000.0 mg/L [facility] Microalbum Creatinine Ratio Ur 922.0(H) <30 ug/mg cr [facility] Comment:Albumin/Creatinine R atio Reference Ranges: Normal: < 30 ug/mg creatinine Microalbuminuria: 30 - 300 ug/mg creatinineClinical Albuminuria: > 300 ug/mg creatinine Urine (Urine, Random) 03/25/2024 7:58 AM EST 03/25/2024 8:41 AM EST us Cipriano Pickens MD LAB URINE ORDERABL ES Final Result Performing Organization Address [facility] Co de Phone Number [facility] [address] [place] [address] [phone] * (ABNORMAL) Urinalysis Complete (03/25/2024 7:58 AM EST) Color Urine Yellow [facility] Appearance Urine Cloudy [facility] PH 6.0 5.0 - 9.0 [facility] Glucose Urine UA Negative Negative mg/dL [facility] Urine Blood Negative Negative [facility] Specific [place] - Urine >=1.030(H) 1.005 - 1.025 [facility] Urine Protein >=1000 (4+)(A) Neg-Trace mg/dL [facility] Urine Ketones Negative Negative mg/dL [facility] Nitrite Urine Negative Negative [facility] Leukocyte Esterase Urine Negative Negative [facility] RBC Urine 0-2 0 - 2 /HPF [facility] Urine WBC 0-5 0 - 5 /HPF [facility] Urine Squamous Epithelial Cell >20 0 - 2 /HPF [facility] Urine Bacteria Trace None Seen [facility] Hyaline Casts, Urine 3-5 0 - 2 /LPF [facility] Urine (Urine, Random) 03/25/2024 7:58 AM EST 03/25/2024 8:41 AM EST us Cipriano Pickens MD LAB URINE ORDERABL ES Final Result [facility] [address] [place] [phone] from Last [address] [place] [place] [address] C3 Care Teams Category Analyst Relationship Specialty Start Date End Date Cipriano Palacio MD [address] [place] [phone] PCP - General Internal Medicine 03/24/24
--- OUTSIDE RECORDS SUMMARY | 2024-06-25 08:41 | XMS_ITS | Encounter Summary ---
Author Organization [employer] Address [address] [place] [address] Care Team Providers Care Fuel Dock Attendant Name Role Phone Cipriano Palacio MD Primary Care Prov ider Reason for Visit * Reason Onset Date Comments Nurse Triage 06/23/2024 Encounter Details Date Type Department Care Team ([facility] st Contact Info) Description 06/23/2024 Telephone [facility] [address] [place] [address] Cipriano Palacio MD [address] [place] [address] Nurse Triage Social History Tobacco Use Types Packs/Day Years [...] encounter Miscellaneous Notes * Telephone Encounter - Jennie Cain RN - 06/23/2024 12:59 PM EST Called pt. Call would not go through. Called pt again and verified number as [phone] and call still would not go through. Called pt. Sister who is on HIPAA. Sister states that pt. Has been vomiting and diarrhea x 3 days. Last urination was this am but, pt, very sick feeling. Unknown if pt. Is dehydrated. Advised sister to let pt. Know that if she only had a little amount of urine this am andshe is non stop vomiting than she is to go to ED but if she is getting small amounts of liquid in and urinating every few hours today, then she can come to walk in after 5pm as walk in is full until that time already and walk in is open un til 730pm. Protocol Used: Vomiting (Adult) Protocol-Based Disposition: See in Office or Video Visit Today- Pt. Sister will assess need for ED versus walk in at [facility]. Video visit not offered Positive Triage Questions: * Mild to Moderate vomiting (e.g., 1-5 times/day) and lasts > 48 hours (2 days) * Patient wants to be seen * All higher-acuity triage questions were negative Care Advice Discussed: * Sleep * Drink Clear Fluids * Telephone Encounter - Sonia Hernandez - 06/23/2024 12:37 PM EST Symptom: Diarrhea, headaches fever Outcome: Schedule an urgent appointment (within 1 hour) or talk to a nurse or provider soon Reason: Vomiting The caller accepted this outcome. documented in this encounter Plan of Treatment Not on file documented as of this encounter Visit Diagnoses Not on filedocumented in this encounter Additional Health Concerns Assessment Noted Time PHQ-9 Depression Total Score: 2 03/24/20 24 9:25 AM EST documented as of this encounter Care Teams Fuel Dock Attendant Relationship Specialty Start Date End Date Cipriano Palacio MD [address] [place] [address] PCP - General Internal Medicine 03/24/24 documented as of this encounter
--- OUTSIDE RECORDS SUMMARY | 2024-06-25 08:41 | XMS_ITS | Encounter Summary ---
Author Organization [employer] Address [address] [place] [address] Care Team Providers Care Mangle Press Catcher Name Role Phone Cipriano Palacio MD Primary Care Prov ider Reason for Visit * Reason Onset Date Comments Lab Orders 03/25/2024 Encounter Details Date Type Department Care Team ([facility] st Contact Info) Description 03/25/[address] [facility] MED[facility]INE [address] [place] [address] Cipriano Palacio MD [address] [place] [id number] Lab Orders Social History Tobacco Use Types Packs/Day Years [...] encounter Miscellaneous Notes * Telephone Encounter - Artur Hancock - 03/25/2024 8:30 AM EST Tc from pt requesting a new order 14 hours urine protein test. Please contact at [phone] or [phone] gave consent to speak to thalia vieira Mongolian documented in this encounter Plan of Treatment Not on file documented as of this encounter Visit Diagnoses Not on filedocumented in this encounter Additional Health Concerns Assessment Noted Time PHQ-9 Depression Total Score: 2 03/24/20 24 9:25 AM EST documented as of this encounter Care Teams Mangle Press Catcher Relationship Specialty Start Date End Date Cipriano Palacio MD [address] [place] [id number] PCP - General Internal Medicine 03/24/24 documented as of this encounter
[2024-06-25 10:09] LABS: Anion Gap 10 (12-20); Blood Urea Nitrogen 10 mg/dL (9-16); Carbon Dioxide 22 mmol/L (22-29); Chloride 109 mmol/L (96-108); Cholesterol 138 mg/dL (<200); Estimated Glomerular Filt Rate > 60; HDL Cholesterol 36 mg/dL (>40); LDL Cholesterol Calculated 86 mg/dL (<100); Potassium 3.4 mmol/L (3.3-5.1); Sodium 138 mmol/L (135-145); Triglycerides 80 mg/dL (<150)
[2024-06-25 10:23] LABS: Creatinine Urine 196.39 mg/dL
[2024-06-25 10:25] LABS: Vitamin D 25-OH Total 20.9 ng/mL (>30)
[2024-06-25 11:05] LABS: Protein/Creatinine Ratio, Ur 2.91 (<0.2); Total Protein Urine Random 572 mg/dL (<12)
== END 2024-06-25 08:39 | disposition home or self-care (01) ==
LOC: HO.LAB 08:38
PROVIDERS: PCP Internal Medicine; Visit Provider Internal Medicine Nephrology
DX: N05.1 Unspecified nephritic syndrome with focal and segmental glomerular lesions (principal); R80.8 Other proteinuria; E78.5 Hyperlipidemia, unspecified; R80.9 Proteinuria, unspecified
CPT/HCPCS: 36415; 80051; 80061; 82306; 82565; 82570; 84156; 84520

== ENCOUNTER 2024-07-02 13:26 | Outpatient (AMB) | payer MEDICAID, SELFPAY ==
--- NOTE | 2024-07-02 13:40 | HO.NEPHOV ---
Vital Signs 07/02/24 13:41 Height 5 ft Weight 151 lb 2 oz BMI 29.5 BP 110/80 Blood Pressure Location Rt brachial Position Sitting Intake Visit Reasons: 1mon follow-up w/labs Glass Unloading Equipment Tender Required: No Accompanied by: Sister Allergies No Known Allergies Allergy (Verified 07/02/24 13:40) HPI Comments Details: Michele is a 34 year old patient who moved to [facility] from [place] who is known to have proteinuria for a long time. She was seen for this by renal MD in [place] in the past and had work up including renal biopsy which showed FSGS. She was treated with prednisone as well as cyclosporine in the past . Currently she is on finerenone and lisinopril 2.5 mg. She says that her ACEI could not be increased as it was dropping her BP. She has no edema and denies any frothy/foamy urine. Her last serum creatinine was 1.06. She has no H/O DVT's or PE's. She denies orthostatic symptoms. She has no family H/O FSGS. [facility] Medical History (Updated 07/02/24 @ 14:02 by Richard Betancur MD) Proteinuria Surgical History Hx of tubal ligation Family History Paternal Grandmother Hypertension Diabetes High cholesterol Paternal Grandfather Diabetes High cholesterol Hypertension Social History Alcohol intake: current Comment: Socially Patient Tobacco Use Status: Never used Tobacco Review of Systems Const All systems reviewed & are unremarkable except as noted in HPI and below Physical Exam Vital Signs: Last Vital Signs BP 110/80 07/02/24 13:41 BMI result Body Mass Index 29.5 Const General: comfortable and no acute distress Orientation/consciousness: patient oriented x3 HEENT Head: Yes normocephalic Mouth: Normal oral and palatal mucosa present Eyes EOM: EOMs intact bilaterally Neck Neck: Yes supple Resp Auscultation: clear to auscultation bilaterally Cardio Jugular venous distension: no JVD Rate: regular rate GI Palpation (GI): Soft to palpation Auscultation: normal bowel sounds General: Yes no CVA tenderness Back/Spine/Pelvis Back: no CVA tenderness Skin General skin exam: no rashes or lesions noted Neuro General: patient oriented x3 and moves all extremities Extrem General: Yes no pedal edema Results Reviewed Nephrology Results: Hgb 13.3 g/dl (12.0-16.0) 04/30/24 WBC 8.3 X10*3/uL (4.8-10.8) 04/30/24 Plt Count 379 X10*3/uL (160-400) 04/30/24 Sodium 138 mmol/L (135-145) 06/25/24 Potassium 3.4 mmol/L (3.3-5.1) 06/25/24 Chloride 109 mmol/L (96-108) H 06/25/24 Carbon Dioxide 22 mmol/L (22-29) 06/25/24 BUN 10 mg/dL (9-16) 06/25/24 Creatinine 1.06 mg/dL (0.5-1.4) 06/25/24 Calcium 9.1 mg/dL (8.4-10.2) 03/25/24 Urine Protein >=1000 (4+) mg/dL (Neg-Trace) H 03/25/24 Urine Creatinine 196.39 mg/dL 06/25/24 Protein/Creatinin Ratio 2.91 (<0.2) H 06/25/24 Assessment & Plan Assessment & Plan (1) FSGS (focal segmental glomerulosclerosis): Code(s): N05.1 - Unspecified nephritic syndrome with focal and segmental glomerular lesions Category: Medical (2) Proteinuria: Code(s): R80.9 - Proteinuria, unspecified Category: Medical Qualifiers: Proteinuria type: other Qualified Code(s): R80.8 - Other proteinuria (3) Vitamin D deficiency: Code(s): E55.9 - Vitamin D deficiency, unspecified Category: Medical Plan Michele has H/O biopsy proven FSGS which was treated with prednisone as well as cyclosporin in [place]. Currently she is on Finerenone as well as lisinopril 2.5 mg daily which I increased to 5 mg bid. She needs to cut back sodium in the diet. I also started her on Vitamin D 2000 Units daily. I have requested her renal records from [place]. She may need a repeat renal biopsy as well as addition of further medications based on evolving data. She should avoid NSAID's. Answered all questions. F/U given Orders: Orders Blood Urea Nitrogen 3 Months N05.1 - Unspecified nephritic syndrome with focal and segmental glomerular lesions, R80.8 - Other proteinuria Electrolytes 3 Months N05.1 - Unspecified nephritic syndrome with focal and segmental glomerular lesions, R80.8 - Other proteinuria Creatinine 3 Months N05.1 - Unspecified nephritic syndrome with focal and segmental glomerular lesions, R80.8 - Other proteinuria Protein Creatinine Ratio, Ur 3 Months N05.1 - Unspecified nephritic syndrome with focal and segmental glomerular lesions, R80.8 - Other proteinuria Medications: New cholecalciferol (vitamin D3) 50 mcg PO DAILY 90 caps 3RF Coding Level of Care Code Est Pt Level 4 (21275) Diagnoses FSGS (focal segmental glomerulosclerosis) N05.1 Other proteinuria R80.8 Proteinuria type: other Vitamin D deficiency E55.9
[2024-07-02 13:41] VITALS: BP 110/80; BMI 29.5
--- OUTSIDE RECORDS SUMMARY | 2024-07-02 14:50 | XMS_ITS | Encounter Summary ---
Author Organization [employer] Address [address] [place] [address] Care Team Providers Care Roofer Gypsum Name Role Phone Cipriano Palacio MD Primary Care Prov ider Reason for Visit * Reason Onset Date Comments Lab Orders 03/25/2024 Encounter Details Date Type Department Care Team ([facility] st Contact Info) Description 03/25/2024 Telephone [facility] MEDICINE [address] [place] [address] Cipriano Palacio MD [address] [place] [id number] Lab Orders Social History Tobacco Use Types [...] hours urine protein test. Please contact at [phone] or [phone] gave consent to speak to thalia vieira Guamanian documented in this encounter Plan of Treatment Not on file documented as of this encounter Visit Diagnoses Not on filedocumented in this encounter Additional Health Concerns Assessment Noted Time PHQ-9 Depression Total Score: 2 03/24/20 24 9:25 AM EST documented as of this encounter Care Teams Roofer Gypsum Relationship Specialty Start Date End Date Cipriano Palacio MD [address] [place] [id number] PCP - General Internal Medicine 03/24/24 documented as of this encounter
--- OUTSIDE RECORDS SUMMARY | 2024-07-02 14:50 | XMS_ITS | Clinical Summary ---
Author Organization [employer] Address [address] [facility] [address] [place] [address] Care Team Providers Care Fondant Machine Operator Name Role Phone Cipriano Palacio MD Primary [...] Type Department Care Team Description 06/23/2024 Telephone [facility] [address] [place] [address] Cipriano Palacio MD Nurse Triage 04/30/2024 Orders Only GENERIC EXTERNAL DATA DEPARTMENT Provider, Generic External Data 04/10/2024 1:15 PM EST Telemedicine [facility] [address] [place] [address] Cipriano Palacio MD Missed period (Primary Dx) 04/10/2024 Travel 04/09/[address] [address] Cipriano Palacio MD Nurse Triage 04/08/[address] [address] Cipriano Palacio MD Nurse Triage 04/02/2024 8:30 AM EST Office Visit [facility] [address] [place] [address] Cipriano Palacio MD Focal segmental glomerulosclerosis (Primary Dx); Prediabetes; Vaccination refused by patient 04/02/2024 Telephone [facility] [address] [place] [address] Cipriano Palacio MD 04/02/2024 Travel 04/01/2024 Telephone [facility] [address] [place] [address] Cipriano Palacio MD Chart Prep from Last 3 Months Family History Medical [...] Procedure Name Priority Date/Time Associated Diagnosis Comments PROTEIN CREATININE RATIO, URINE Routine 06/25/2024 9:01 AM EST VITAMIN D,25-OH,TOTAL,IA Routine 06/25/2024 9:00 AM EST LIPID PANEL, STANDARD Routine 06/25/2024 9:00 AM EST CREATININE, SERUM Routine 06/25/2024 9:0 0 AM EST UREA NITROGEN (BUN) Routine 06/25/2024 9 :00 AM EST ELECTROLYTE PANEL Routine 06/25/2024 9:0 0 AM EST PHOSPHOLIPASE A2 RECEPTOR (PLA2R) AB PANEL Routine [...] TOTAL Routine 04/02/2024 10:00 AM EST Prediabetes from Last 3 Months Results * (ABNORMAL) Protein Creatinine Ratio, Urine (06/25/2024 9:01 AM EST) Creatinine, Urine 196.39 mg/dL [facility] Protein, Total, Random Urine 572(H) <12 mg/dL [facility] Protein/Creati nine Ratio, Ur 2.91(H) <0.2 [facility] Comment:The spot urine prote in:creatinine ratio may increase to 0.3during normal . 06/25/2024 9:01 AM EST 06/25/2024 9:27 AM EST us Generic External Data Provider LAB URINE ORDERAB LES Final Result [facility] [address] [place] [phone] * (ABNORMAL) Vitamin D, 25-Hydroxy, Total, Immunoassay (06/25/2024 9:00 AM EST) Vitamin D 25-OH Total 20.9(L) >30 ng/mL [facility] Comment:Health Based Referen ce Values*< 20 ng/mL Jawsgketh97-71 ng/mL Insufficient> 30 ng/mL Sufficient*Riya LEON. N Engl J Med. 2007;357:266-280Care must be taken in interpreting Vitamin D results fromdifferent laboratories and methodologies. Published datademonstrated that results from patients undergoinghemodialysis may show a negative bias when tested withvarious automated 25-OH vitamin D assays when compared toLC-MS/MS.When testing samples from patients whose predominant form ofVitamin D is Vitamin D2, such as patients receiving VitaminD2 supplementation, results that are subtherapeutic shouldbe confirmed with another method such as LC-MS/MS. 06/25/2024 9:00 AM EST 06/25/2024 9:04 AM EST us Generic External Data Provider LAB BLOOD ORDERAB LES Final Result Performing Organization Address [facility] Co de Phone Number [facility] [address] [place] [phone] * Creatinine, Serum (06/25/2024 9:00 AM EST) Only the most recent of2 resultswithin the time period is included. Creatinine, Serum 1.06 0.5 - 1.4 mg/dL [facility] Estimated Glomerular Filt Rate >60 [facility] Comment:Chronic Kidney Disea se: Estimated GFR < 60 mL/min/1.99s2Hgppoy Kidney Disease: Estimated GFR < 15 mL/min/1.73m2 06/25/2024 9:00 AM EST 06/25/2024 9:04 AM EST us Generic External Data Provider LAB BLOOD ORDERAB LES Final Result Performing Organization Address [facility] Co de Phone Number [facility] [address] [place] [phone] * BUN (Blood Urea Nitrogen) (06/25/2024 9:00 AM EST) Only the most recent of2 resultswithin the time period is included. Urea Nitrogen (BUN) 10 9 - 16 mg/dL [facility] 06/25/2024 9:00 AM EST 06/25/2024 9:04 AM EST us Generic External Data Provider LAB BLOOD ORDERAB LES Final Result Performing Organization Address [facility] Co de Phone Number [facility] [address] [place] [phone] * (ABNORMAL) Lipid Panel, Standard (06/25/2024 9:00 AM EST) Triglycerides 80 <150 mg/dL [facility] Comment:Desirable Triglyceri de: less than 150 mg/dLBorderline High Triglyceride 150-199 mg/dLHigh Triglyceride: 200-499 mg/dLVery High Triglyceride: greater than or equal to 5OO mg/dL Cholesterol 138 <200 mg/dL [facility] Comment:Desirable Cholestero l: less than 200 mg/dLBorderline High Cholesterol: 200-239 mg/dLHigh Cholesterol: greater than 239 mg/dL LDL Cholesterol Calculated 86 <100 mg/dL [facility] Comment:Desirable LDL: less than 100 mg/dLNear Optimal/Above Optimal LDL: 110- 129 mg/dLBorderline High LDL: 130-159 mg/dLHigh LDL: 160-189 mg/dLVery High LDL: greater than or equal to 190 mg/dL HDL Cholesterol 36(L) >40 mg/dL [facility] Comment:Desirable HDL: great er than 40 mg/dL Note: This HDL assay may give artificially low results in patients with liver disease. 06/25/2024 9:00 AM EST 06/25/2024 9:04 AM EST us Generic External Data Provider LAB BLOOD ORDERAB LES Final Result Performing Organization Address City/[facility] Co de Phone Number [facility] [address] [place] [phone] * (ABNORMAL) Electrolyte Panel (06/25/2024 9:00 AM EST) Only the most recent of2 resultswithin the time period is included. Sodium 138 135 - 145 mmol/L [facility] Potassium 3.4 3.3 - 5.1 mmol/L [facility] Chloride 109(H) 96 - 108 mmol/L [facility] Carbon Dioxide 22 22 - 29 mmol/L [facility] Anion Gap 10(L) 12 - 20 [facility] 06/25/2024 9:00 AM EST 06/25/2024 9:04 AM EST us Generic External Data Provider LAB BLOOD ORDERAB LES Final Result Performing Organization Address City/State/[facility] de Phone Number [facility] [address] [place] [phone] [phone] * Proteinase-3 Antibody (04/30/2024 9:42 AM EST) Proteinase-3 Antibody <1.0 [facility] Comment:Value Interpretation ----- <1.0 No Antibody Detected > or = 1.0 Antibody DetectedAutoantibodies to proteinase-3 (GA-3) are accepted ascharacteristic for granulomatosis with polyangiitis(GPA, Destiney's), and are detectable in 95% of thehistologically proven cases. The cytoplasmic IFApattern, (c-ANCA), is based largely on autoantibody toPR-3 which serves as the primary antigen.These autoantibodies are present in active disease.THIS TEST WAS PERFORMED AT:[facility] [place] [phone] WATERS MD 04/30/2024 9:42 AM EST 04/30/2024 9:42 AM EST Generic External Data Provider LAB BLOOD ORDERAB LES Final Result Performing Organization Address [facility] de Phone Number [facility] [address] [place] [phone] * Myeloperoxidase Antibody (MPO) (04/30/2024 9:42 AM EST) Myeloperoxidase Antibody <1.0 [facility] Comment:Value Interpretation ----- <1.0 No Antibody Detected > or = 1.0 Antibody DetectedAutoantibodies to myeloperoxidase (MPO) are commonlyassociated with the following small-vesselvasculitides: microscopic polyangiitis,polyarteritis nodosa, Churg-Ewa syndrome,necrotizing and crescentic glomerulonephritis andoccasionally granulomatosis with polyangiitis(GPA, Destiney's). The perinuclear IFA pattern,(p-ANCA) is based largely on autoantibody tomyeloperoxidase which serves as the primary antigen.These autoantibodies are present in active disease.THIS TEST WAS PERFORMED AT:[facility] [address] [phone] WATERS MD 04/30/2024 9:42 AM EST 04/30/2024 9:42 AM EST Generic External Data Provider LAB BLOOD ORDERAB LES Final Result Performing Organization Address [facility] de Phone Number [facility] [address] [place] [phone] * Phospholipase A2 Receptor (PLA2R) Antibody Panel (04/30/2024 9:42 AM EST) Phospholipase A2 Receptor (PLA2R) Ab, SIRIA 7 RU/mL [facility] Comment:Reference Range: <14 : NEGATIVE 14-19: BORDERLINE >19: POSITIVE Phospholipase A2 Receptor (PLA2R) Ab, IFA NEGATIVE NEGATIVE [facility] Comment:THIS TEST WAS PERFOR MED AT:[facility]/JONES [id number] [facility] [place] [phone] CROWDER MD,PHD,SHANE 04/30/2024 9:42 AM EST 04/30/2024 9:42 AM EST Generic External Data Provider LAB BLOOD ORDERAB LES Final Result Performing Organization Address [facility] de Phone Number [facility] [address] [place] [phone] * CBC auto differential (04/30/2024 9:42 AM EST) White Blood Count 8.3 4.8 - 10.8 X10*3/uL [facility] Red Blood Count 4.56 4.20 - 5.50 X10*6/uL [facility] Hemoglobin 13.3 12.0 - 16.0 g/dl [facility] Hematocrit 39.6 37.0 - 47.0 % [facility] Mean Corpuscular Volume 86.8 80.0 - 98.0 fL [facility] Mean Corpuscular Hemoglobin 29.2 27.0 - 33.0 pg [facility] Mean Corpuscular HGB Conc 33.6 31.0 - 35.0 g/dl [facility] Red Cell Distribution Width 12.8 11.0 - 16.0 % [facility] Platelet Count 379 160 - 400 X10*3/uL [facility] Mean Platelet Volume 11.1 9.4 - 12.3 fL [facility] Neutrophils Percent Auto 67.4 45 - 73 % [facility] Imm Gran Pct Auto 0.1 0.0 - 0.4 % [facility] Lymphocytes Percent Auto 22.3 20 - 40 % [facility] Monocytes Percent Auto 6.1 2 - 11 % [facility] Eosinophils Percent Auto 3.5 0 - 4 % [facility] Basophils Percent Auto 0.6 0 - 2 % [facility] NRBC Pct Auto 0.0 0.0 - 0.2 /100WBC [facility] Neutrophils Absolute Auto 5.6 2.0 - 8.3 x10*3/uL [facility] Imm Gran Abs Auto 0.01 0.00 - 0.03 X10*3/uL [facility] Lymphocytes Absolute Auto 1.9 1.2 - 4.9 X10*3/uL [facility] Monocytes Absolute Auto 0.5 0.1 - 1.2 X10*3/uL [facility] Eosinophils Absolute Auto 0.3 0.0 - 0.4 X10*3/uL [facility] Basophils Absolute Auto 0.1 0.0 - 0.2 X10*3/uL [facility] NRBC Abs Auto 0.000 0.0 - 0.012 X10*3/uL [facility] 04/30/2024 9:42 AM EST 04/30/2024 9:42 AM EST us Generic External Data Provider LAB BLOOD ORDERAB LES Final Result Performing Organization Address [facility] Co de Phone Number [facility] [address] [place] [phone] * Hepatitis C Antibody with Reflex to HCV, RNA, Quantitative, Real-Time PCR (04/30/2024 9:42 AM EST) Hepatitis C Antibody Nonreactive Nonreactive [facility] Comment:Antibodies to HCV no t detected; does not exclude early acuteHCV infection. 04/30/2024 9:42 AM EST 04/30/2024 9:42 AM EST Generic External Data Provider LAB BLOOD ORDERAB LES Final Result Performing Organization Address [facility] de Phone Number [facility] [address] [place] [phone] * Glomerular Basement Membrane Antibody (IgG) (04/30/2024 9:42 AM EST) Glomerular Basement Memebrane Antibody (IgG) <1.0 AI [facility] Comment:Value Interpretation ----- <1.0 No Antibody Detected > or = 1.0 Antibody DetectedTHIS TEST WAS PERFORMED AT:[facility] [place] [phone] WATERS MD 04/30/2024 9:42 AM EST 04/30/2024 9:42 AM EST us Generic External Data Provider LAB BLOOD ORDERAB LES Final Result Performing Organization Address [facility] de Phone Number [facility] [address] [place] [phone] * DNA (ds) Antibody (04/30/2024 9:42 AM EST) Anti DNA DS Antibody 1 IU/mL [facility] Comment:IU/mL Interpretation < or = 4 Negative 5-9 Indeterminate > or = 10 PositiveTHIS TEST WAS PERFORMED AT:[facility] [place] [phone] WATERS MD 04/30/2024 9:42 AM EST 04/30/2024 9:42 AM EST Generic External Data Provider LAB BLOOD ORDERAB LES Final Result Performing Organization Address [facility] Co de Phone Number [facility] [address] [place] [phone] * Hepatitis B surface antigen, EIA (04/30/2024 9:42 AM EST) Pathologist [facility] Hepatitis B Surface Ag Negative Negative [facility] 04/30/2024 9:42 AM EST 04/30/2024 9:42 AM EST Generic External Data Provider LAB BLOOD ORDERAB LES Final Result Performing Organization Address [facility] Co de Phone Number [facility] [address] [place] [phone] * Rheumatoid Factor (04/30/2024 9:42 AM EST) Pathologist [facility] Rheumatoid Factor <13.0 <15.0 IU/mL [facility] 04/30/2024 9:42 AM EST 04/30/2024 9:42 AM EST Generic External Data Provider LAB BLOOD ORDERAB LES Final Result Performing Organization Address [facility] Co de Phone Number [facility] [address] [place] [phone] * Immunofixation, Serum (04/30/2024 9:42 AM EST) IMMUNOGLOBULIN G 994 600 - 1640 mg/dL [facility] IMMUNOGLOBULIN A 96 47 - 310 mg/dL [facility] Immunoglobulin M 181 50 - 300 mg/dL [facility] Comment:THIS TEST WAS PERFOR MED AT:[facility] [address] [phone] WATERS MD Immunofixation Result SEE NOTE [facility] Comment:Normal pattern. No m onoclonal proteins detected. 04/30/2024 9:42 AM EST 04/30/2024 9:42 AM EST us Generic External Data Provider LAB BLOOD ORDERAB LES Final Result Performing Organization Address [facility] Co de Phone Number [facility] [address] [place] [phone] * Complement Component C3c (04/30/2024 9:42 AM EST) Complement C3 157 83 - 193 mg/dL [facility] Comment:THIS TEST WAS PERFOR MED AT:[facility] [address] [phone] WATERS MD 04/30/2024 9:42 AM EST 04/30/2024 9:42 AM EST us Generic External Data Provider LAB BLOOD ORDERAB LES Final Result Performing Organization Address [facility] de Phone Number [facility] [address] [place] [phone] * Complement Component C4c (04/30/2024 9:42 AM EST) Complement C4 29 15 - 57 mg/dL [facility] Comment:THIS TEST WAS PERFOR MED AT:[facility] [address] [phone] WATERS MD 04/30/2024 9:42 AM EST 04/30/2024 9:42 AM EST us Generic External Data Provider LAB BLOOD ORDERAB LES Final Result Performing Organization Address [facility] Co de Phone Number [facility] [address] [place] [phone] * Immunofixation (LC), Urine (04/30/2024 9:31 AM EST) LC Interpretation [facility] Comment:No monoclonal protei ns detected.The supplier of the testing reagents for this assayhas changed. Detection of small monoclonal proteins mayvary by test system.THIS TEST WAS PERFORMED AT:[facility] [place] [phone] WATERS MD 04/30/2024 9:31 AM EST 04/30/2024 10:03 AM EST us Generic External Data Provider LAB URINE ORDERAB LES Final Result [facility] [address] [place] [phone] * hCG, Total, Quantitative (04/10/2024 2:31 PM EST) HCG Quantitative <2 mIU/mL [facility] Comment:Weeks post LMP Appro ximate hCG(Last Menstrual Period) Range (mIU/ml)3 - 4 weeks 9 - 1304 - 5 weeks 75 - 2,6005 - 6 weeks 850 - 20,8006 - 7 weeks 4000 - 100,2007 - 12 weeks 11,500 - 289,90685 - 16 weeks 18,300 - 137,75606 - 29 weeks (2nd trimester) 1,400 - 53,53124 - 41 weeks (3rd trimester) 940 - [...] 2:31 PM EST 04/10/2024 5:47 PM EST us Cipriano Pickens MD LAB BLOOD ORDERABL ES Final Result [facility] [address] [place] [phone] * POCT HGB A1C (04/02/2024 10:00 AM EST) Hemoglobin A1C 5.9 4.0 - 6.0 % QC Media Lot # [id number] Lot# Expiration Date Blood 04/02/2024 10:0 0 AM EST Cipriano Pickens MD POINT OF CARE TEST ENTER/EDIT ORDERABLES Final Result from Last [address] [place] [address] C3 Care Teams Fondant Machine Operator Relationship Specialty Start Date End Date Cipriano Palacio MD [address] [place] [phone] PCP - General Internal Medicine 03/24/24
--- OUTSIDE RECORDS SUMMARY | 2024-07-02 14:50 | XMS_ITS | Encounter Summary ---
Author Organization [employer] Address [address] [place] [address] Care Team Providers Care Metal Or Wood Blocker Name Role Phone Cipriano Palacio MD Primary Care Prov ider Reason for Visit * Reason Onset Date Comments Results 03/27/2024 Encounter Details Date Type Department Care Team ([facility] st Contact Info) Description 03/27/2024 Telephone [facility] MEDICINE [address] [place] [address] Cipriano Palacio MD [address] [place] [phone] Results Social History Tobacco Use Types Packs/Day [...] results: Labs Date when done: 03/25/24 Facility: [facility] Labs (Taiwanese Speaker) documented in this encounter Plan of Treatment Not on file documented as of this encounter Visit Diagnoses Not on filedocumented in this encounter Additional Health Concerns Assessment Noted Time PHQ-9 Depression Total Score: 2 03/24/20 9:25 AM EST documented as of this encounter Care Teams Metal Or Wood Blocker Relationship Specialty Start Date End Date Cipriano Palacio MD [address] [place] [phone] PCP - General Internal Medicine 03/24/24 documented as of this encounter
--- OUTSIDE RECORDS SUMMARY | 2024-07-02 14:50 | XMS_ITS | Encounter Summary ---
Author Organization [employer] Address [address] [place] [address] Care Team Providers Care Lead Supply Worker Name Role Phone Cipriano Palacio MD Primary Care Prov ider Reason for Visit * Reason Onset Date Comments Nurse Triage 06/23/2024 Encounter Details Date Type Department Care Team ([facility] st Contact Info) Description 06/23/2024 Telephone [facility] [address] [place] [address] Cipriano Palacio MD [address] [place] [address] Nurse Triage Social History Tobacco Use Types [...] Called pt again and verified number as [phone] and call still would not go through. [...] need for ED versus walk in at [facility]. Video visit not offered Positive [...] documented as of this encounter Care Teams Lead Supply Worker Relationship Specialty Start Date End Date Cipriano Palacio MD [address] [place] [address] PCP - General Internal Medicine 03/24/24 documented as of this encounter
== END 2024-07-02 14:10 | disposition home or self-care (01) ==
LOC: HO.HKA 13:26
PROVIDERS: PCP Internal Medicine; Visit Provider Internal Medicine Nephrology
DX: N05.1 Unspecified nephritic syndrome with focal and segmental glomerular lesions (principal); R80.8 Other proteinuria; E55.9 Vitamin D deficiency, unspecified
CPT/HCPCS: 99214

== ENCOUNTER → 2024-07-02 13:26 | Outpatient (BNVA) | payer MEDICAID, SELFPAY | PROVIDERS: PCP Internal Medicine; Visit Provider Internal Medicine Nephrology | DX: N05.1 Unspecified nephritic syndrome with focal and segmental glomerular lesions (principal); R80.8 Other proteinuria; E55.9 Vitamin D deficiency, unspecified | CPT/HCPCS: 99212 ==

== ENCOUNTER 2024-08-13 09:58 | Outpatient (REF) | payer MEDICAID, SELFPAY | END 2024-08-13 09:59 | disposition home or self-care (01) | LOC: HO.LAB 09:58 | PROVIDERS: PCP Internal Medicine; Visit Provider Internal Medicine | DX: Z13.89 Encounter for screening for other disorder (principal) ==

== ENCOUNTER 2024-08-18 14:51 | Outpatient (REF) | payer MEDICAID, SELFPAY ==
--- OUTSIDE RECORDS SUMMARY | 2024-08-18 16:48 | XMS_ITS | Encounter Summary ---
Author Organization [employer] Address [address] [place] [address] Care Team Providers Care Hadoop Administrator Name Role Phone Cipriano Palacio MD Primary Care Prov ider Reason for Visit * Reason Onset Date Comments Lab Orders 08/13/2024 Encounter Details Date Type Department Care Team ([facility] st Contact Info) Description 08/13/2024 Telephone [facility] MEDICINE [address] [place] [address] Cipriano Palacio MD [address] [place] [phone] Lab Orders (/) Social History Tobacco Use Types Packs/Day Years [...] encounter Miscellaneous Notes * Telephone Encounter - Jenna Solitario RN - 08/13/2024 10:45 AM EDT New lab orders created for correct age bracket. Attempted to call [facility] lab x2 to inform of new orders. No answer and phone call would disconnect after couple minutes on hold x2. * Telephone Encounter - Angela Famayo Dowling - 08/13/2024 10:27 AM EDT Tc from [facility] lab stating they received a wrong lab order, lab order specify it's for a 5 year old or under and pt is an adult. [phone] *pt's at the [facility] now. documented in this encounter Plan of Treatment Upcoming Encounters Date Type Department Care Team (Late st Contact Info) Description 09/11/2024 9:00 AM EDT Office Visit [facility] [address] [place] [address] Abdifatah Anne DDS [address] [place] [address] Scheduled Orders Name Type Priority Associated Diagnoses Orde r Schedule Celiac Disease Diagnostic Panel Lab Routine Chronic diarrhea Expected: 08/13/2024, Expires: 08/13/2025 Celiac Disease Comprehensive Panel Lab Routine Chronic diarrhea Expected: 08/13/2024, Expires: 08/13/2025 documented as of this encounter Visit Diagnoses Diagnosis Chronic diarrhea Diarrhea documented in this encounter Additional Health Concerns Assessment Noted Time PHQ-9 Depression Total Score: 2 03/24/20 9:25 AM EST documented as of this encounter Care Teams Hadoop Administrator Relationship Specialty Start Date End Date Cipriano Palacio MD [address] [place] [address] PCP - General Internal Medicine 03/24/24 documented as of this encounter
--- OUTSIDE RECORDS SUMMARY | 2024-08-18 16:48 | XMS_ITS | Clinical Summary ---
Author Organization [facility] [employer] Address [address] [facility] [address] [place] [address] Care Team Providers Care Butcher Assistant Name Role Phone Cipriano Palacio MD Primary Care Prov ider Allergies No known active allergies Medications Blood Pressure kit 1 kit Once per day. 1 kit 4 Active famotidine (Pepcid) 20 MG tablet Take 1 tablet (20 mg) by mouth 2 times daily. 60 tablet 11 4 04/02/20 25 Active Additional Information Patient not taking.Reported on 08/04/2024 Finerenone (Kerendia) 10 MG tablet Take 1 tablet (10 mg) by mouth Once per day. 30 tablet 2 5 Active lisinopril 5 MG tablet Take 5 mg by mouth 2 times daily. Active loperamide (Imodium A-D) 2 MG tablet Take 1-2 tablets (2-4 mg) by mouth if needed in the morning, at noon, in the evening, and at bedtime for diarrhea. 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 Assessment & Plan (07/17/2024 2:09 PM EST): Followed by nephrology, lisinopril was increased to 5mg bid, told to keep a bp log, target <130/80, avoid NSAIDS, Assessment & Plan (04/02/2024 10:23 AM EST): [...] (03/24/2024 2:49 PM EST): Patient moved from [place], she had kidney biopsy, is on kerendia 10mg and lisinopril 2.5mg, will refer to nephrology Infertility counseling 03/24/2024 Assessment & Plan (03/24/2024 2:51 PM EST): Patient underwent tubal ligation 10 years ago, she is interested in getting , will refer to fertility clinic to review options Encounters Date Type Department Care Team Description 08/13/2024 Telephone [facility] MEDICINE [address] [place] [phone] Cipriano Palacio MD Lab Orders (/) 08/04/2024 11:30 AM EDT Office Visit [facility] ADULT DENTAL [address] [place] [address] Abdifatah Anne DDS Dental caries (Primary Dx) 08/01/2024 Population Health Risk Score [facility] () [address] [phone] Provider, Population Health Generic 07/30/2024 3:15 PM EDT Telemedicine [facility] MED & PEDS [address] [place] [address] Cipriano Palacio MD Chronic diarrhea (Primary Dx) 07/30/2024 Travel 07/29/2024 Telephone [facility] MED & PEDS [address] [place] [address] Cipriano Palacio MD chart prep 07/16/2024 3:30 PM EST Telemedicine [facility] MED & PEDS [address] [place] [address] Cipriano Palaico MD Focal segmental glomerulosclerosis (Primary Dx); Chronic diarrhea 07/16/2024 Travel 07/15/2024 Telephone [facility] MED & PEDS [address] [place] [address] Cipriano Palacio MD chart prep 07/11/2024 Travel 06/23/2024 Telephone [facility] MED & PEDS [address] [place] [address] Cipriano Palacio MD Nurse Triage from Last 3 Months Family History Medical [...] Sign Reading Time Taken Comments Blood Pressure 124/84 08/04/2024 9:28 AM EDT Pulse 70 04/02/2024 8:58 AM EST Temperature 36.8 ??C (98.3 ??F) 04/02/2024 8:58 AM ES T Respiratory Rate 16 04/02/2024 8:58 AM EST Oxygen Saturation - - Inhaled Oxygen Concentration - - Weight 68.5 kg (151 lb) 04/02/2024 8:58 AM EST Height 152.4 cm (5') 04/02/2024 8:58 AM EST Body Mass Index 29.49 04/02/2024 8:58 AM EST Plan of Treatment Upcoming Encounters Date Type Department Care Team (Late st Contact Info) Description 09/11/2024 9:00 AM EDT Office Visit [facility] ADULT DENTAL [address] [place] [address] Abdifatah Anne, DDS [address] [place] [address] Health Maintenance Due Date Last Done Comments Dental Oral Exam 1992 Dental Prophylaxis 1992 Dental X-Ray: Bitewings 1992 Dental X-Ray: Full Mouth 1992 HIV Screening 1992 SDOH Screening 1992 Alcohol/Substance Use Screening 2004 Family Planning (PISQ) 01/24/2007 DTaP/Tdap/Td Vaccines (1 - Tdap) 01/24/2011 Hepatitis B Vaccines (1 of 3 - 19+ 3-dose series) 01/24/2011 Pap Smear 01/24/2013 Cervical Cancer Screening 01/24/2022 HPV/Cotest 01/24/2022 COVID-19 Vaccine ( - 2023-2 5 season) 2024 Influenza Vaccine (#1) 2024 Depression Screening 03/24/2025 03/24/2024, 03/24/2024 Diabetes: Hemoglobin A1C 04/02/2025 04/02/2024 Tobacco Screening 08/04/2025 08/04/2024 Zoster Vaccines (1 of 2) 01/24/2042 RSV [...] Procedure Name Priority Date/Time Associated Diagnosis Comments CASE PRESENTATION, DETAILED AND EXTENSIVE TREATMENT PLANNING Routine 08/04/2024 11:30 AM EDT INTRAORAL - PERIAPICAL FIRST RADIOGRAPHIC IMAGE Routine 08/04/2024 11:30 AM EDT LIMITED ORAL EVALUATION - PROBLEM FOCUSED Routine 08/04/2024 11:30 AM EDT PROTEIN CREATININE RATIO, URINE Routine 06/25/2024 9:01 AM EST VITAMIN D,25-OH,TOTAL,IA Routine 06/25/2024 9:00 AM EST LIPID PANEL, STANDARD Routine 06/25/2024 9:00 AM EST CREATININE, SERUM Routine 06/25/2024 9:0 0 AM EST UREA NITROGEN (BUN) Routine 06/25/2024 9 :00 AM EST ELECTROLYTE PANEL Routine 06/25/2024 9: 00 AM EST HEPATITIS C AB W/REFL TO HCV RNA, QN, PCR Routine 04/30/2024 9:42 AM EST POCT GLYCATED HEMOGLOBIN, TOTAL Routine 04/02/2024 10:00 AM EST Prediabetes from Last 3 Months or Most Recently Relevant to Health Maintenance Results * (ABNORMAL) Protein Creatinine Ratio, Urine (06/25/2024 9:01 AM EST) Creatinine, Urine 196.39 mg/dL [facility] Protein, Total, Random Urine 572(H) <12 mg/dL [facility] Protein/Creati nine Ratio, Ur 2.91(H) <0.2 [facility] Comment:The spot urine prote in:creatinine ratio may increase to 0.3during normal . 06/25/2024 9:01 AM EST 06/25/2024 9:27 AM EST us Generic External Data Provider LAB URINE ORDERAB LES Final Result [facility] [address] [place] [phone] * (ABNORMAL) Vitamin D, 25-Hydroxy, Total, Immunoassay (06/25/2024 9:00 AM EST) Vitamin D 25-OH Total 20.9(L) >30 ng/mL [facility] Comment:Health Based Referen ce Values*< 20 ng/mL [id number] ng/mL Insufficient> 30 ng/mL Sufficient*Riya LEON. N [...] 9:00 AM EST 06/25/2024 9:04 AM EST Generic External Data Provider LAB BLOOD ORDERAB LES Final Result Performing Organization Address [facility] [place] [facility] [place] Phone Number [facility] [address] [place] [phone] * Creatinine, Serum (06/25/2024 9:00 AM EST) Creatinine, Serum 1.06 0.5 - 1.4 mg/dL [facility] Estimated Glomerular Filt Rate >60 [facility] Comment:Chronic Kidney Disea se: Estimated GFR < 60 mL/min/[id number] Kidney Disease: Estimated GFR < 15 mL/min/1.73m2 06/25/2024 9:00 AM EST 06/25/2024 9:04 AM EST Generic External Data Provider LAB BLOOD ORDERAB LES Final Result Performing Organization Address [facility] Phone Number [facility] [address] [place] [phone] * BUN (Blood Urea Nitrogen) (06/25/2024 9:00 AM EST) Urea Nitrogen (BUN) 10 9 - 16 mg/dL [facility] 06/25/2024 9:00 AM EST 06/25/2024 9:04 AM EST Generic External Data Provider LAB BLOOD ORDERAB LES Final Result Performing Organization Address [facility] de Phone Number [facility] [address] [place] [phone] * (ABNORMAL) Lipid Panel, Standard (06/25/2024 9:00 AM EST) Triglycerides 80 <150 mg/dL [facility] Comment:Desirable Triglyceri de: less than 150 mg/dLBorderline High Triglyceride 150-199 mg/dLHigh Triglyceride: 200-499 mg/dLVery High Triglyceride: greater than or equal to 5OO mg/dL Cholesterol 138 <200 mg/dL [facility] Comment:Desirable Cholestero l: less than 200 mg/dLBorderline High Cholesterol: 200-239 mg/dLHigh Cholesterol: greater than 239 mg/dL LDL Cholesterol Calculated 86 <100 mg/dL [facility] Comment:Desirable LDL: less than 100 mg/dLNear Optimal/Above Optimal LDL: 110- 129 mg/dLBorderline High LDL: 130-159 mg/dLHigh LDL: 160-189 mg/dLVery High LDL: greater than or equal to 190 mg/dL HDL Cholesterol 36(L) >40 mg/dL [facility] Comment:Desirable HDL: great er than 40 mg/dL Note: This HDL assay may give artificially low results in patients with liver disease. 06/25/2024 9:00 AM EST 06/25/2024 9:04 AM EST us Generic External Data Provider LAB BLOOD ORDERAB LES Final Result [facility] [address] [place] [phone] * (ABNORMAL) Electrolyte Panel (06/25/2024 9:00 AM EST) Sodium 138 135 - 145 mmol/L [facility] Potassium 3.4 3.3 - 5.1 mmol/L [facility] Chloride 109(H) 96 - 108 mmol/L [facility] Carbon Dioxide 22 22 - 29 mmol/L [facility] Anion Gap 10(L) 12 - 20 [facility] 06/25/2024 9:00 AM EST 06/25/2024 9:04 AM EST us Generic External Data Provider LAB BLOOD ORDERAB LES Final Result Performing Organization Address [facility] Co de Phone Number [facility] [address] [place] [phone] * Hepatitis C Antibody with Reflex to HCV, RNA, Quantitative, Real-Time PCR (04/30/2024 9:42 AM EST) Hepatitis C Antibody Nonreactive Nonreactive [facility] Comment:Antibodies to HCV no t detected; does not exclude early acuteHCV infection. 04/30/2024 9:42 AM EST 04/30/2024 9:42 AM EST [facility] External Data Provider LAB BLOOD ORDERAB LES Final Result Performing Organization Address [facility] Co de Phone Number [facility] [address] [place] [phone] * POCT HGB A1C (04/02/2024 10:00 AM EST) Hemoglobin A1C 5.9 4.0 - 6.0 % QC Media Lot # [id number] Lot# Expiration Date 333 Blood 04/02/2024 10:0 0 AM EST us Cipriano Pickens MD POINT OF CARE TEST ENTER/EDIT ORDERABLES Final Result from Last 3 Months or Most Recently Relevant to Health Maintenance Insurance [facility] C3 [facility] MEDICAID STAND ADULT Care Teams Butcher Assistant Relationship Specialty Start Date End Date Cipriano Palacio MD [address] [place] [phone] PCP - General Internal Medicine 03/24/24
--- OUTSIDE RECORDS SUMMARY | 2024-08-18 16:48 | XMS_ITS | Encounter Summary ---
Author Organization [employer] Address [address] [place] [address] Care Team Providers Care Rn Endocrinology Name Role Phone Cipriano Palacio MD Primary Care Prov ider Reason for Visit * Reason Onset Date Comments Results 03/27/2024 Encounter Details Date Type Department Care Team ([facility] st Contact Info) Description 03/27/2024 Telephone [facility] [address] [place] [address] Cipriano Palacio MD [address] [place] [phone] Results Social History Tobacco Use Types Packs/Day [...] results: Labs Date when done: 03/25/24 Facility: [facility] (Romanian Speaker) documented in this encounter Plan of Treatment Upcoming Encounters Date Type Department Care Team (Late st Contact Info) Description 09/11/2024 9:00 AM EDT Office Visit [facility] ADULT DENTAL [address] [place], [place] [phone] Abdifatah Anne DDS [address] [place] [address] documented as of this encounter Visit Diagnoses Not on filedocumented in this encounter Additional Health Concerns Assessment Noted Time PHQ-9 Depression Total Score: 2 03/24/20 9:25 AM EST documented as of this encounter Care Teams Rn Endocrinology Relationship Specialty Start Date End Date Cipriano Palacio MD [address] [place] [phone] PCP - General Internal Medicine 03/24/24 documented as of this encounter
[2024-08-20 23:08] LABS: Gliadin Deamidated IgA Ab <1.0 U/mL; Gliadin Deamidated IgG Ab <1.0 U/mL; Immunoglobulin A 99 mg/dL (47-310); Transglutaminase Ab IgG <1.0 U/mL; Transglutaminase IgA <1.0 U/mL
[2024-08-23 18:34] LABS: Lactoferrin, Fecal, Quant. <6.25 mcg/mL (<7.25)
[2024-08-23 21:18] LABS: Calprotectin, Fecal 56 mcg/g
== END 2024-08-18 14:52 | disposition home or self-care (01) ==
LOC: HO.LAB 14:51
PROVIDERS: PCP Internal Medicine; Visit Provider Internal Medicine
DX: K52.9 Noninfective gastroenteritis and colitis, unspecified (principal)
CPT/HCPCS: 36415; 82784; 83631; 83993; 86258; 86364; 87177; 87209; 87329

== ENCOUNTER 2024-09-12 08:47 | Outpatient (REF) | payer MEDICAID, SELFPAY ==
--- OUTSIDE RECORDS SUMMARY | 2024-09-12 08:53 | XMS_ITS | Clinical Summary ---
Author Organization [employer] Address [address] [facility] 7[address] [place] [address] Care Team Providers Care Shochet Name Role Phone Cipriano Palacio MD Primary [...] diarrhea. 60 tablet 5 08/30/19 25 Active Problems Problem Noted Date Diagnosed Date Severe dental caries 08/04/2024 Chronic diarrhea 07/17/2024 Assessment & [...] (03/24/2024 2:49 PM EST): Patient moved from [place], she had kidney biopsy, is on kerendia 10mg and lisinopril 2.5mg, will refer to nephrology Infertility counseling 03/24/2024 Assessment & Plan (03/24/2024 2:51 PM EST): Patient underwent tubal ligation 10 years ago, she is interested in getting , will refer to fertility clinic to review options Encounters Date Type Department Care Team Description 09/11/2024 9:00 AM EDT Office Visit [facility] ADULT DENTAL [address] [place] [address] bAdifatah Anne DDS Severe dental caries (Primary Dx) 08/13/2024 Telephone [facility] MEDICINE [address] [place] [address] Cipriano Palacio MD Lab Orders (/) 08/04/2024 11:30 AM EDT Office Visit [facility] ADULT DENTAL [address] [place] [address] Abdifatah Anne DDS Dental caries (Primary Dx) 08/01/2024 Population Health Risk Score Community Care [facility] (C3) Department [address] [place] [address] [phone] Provider, Population Health Generic 07/30/2024 3:15 PM EDT Telemedicine [facility] MED & PEDS [address] [place] [address] Cipriano Palacio MD Chronic diarrhea (Primary Dx) 07/30/2024 Travel 07/29/2024 Telephone [facility] [address] [place] [address] Cipriano Palacio MD chart prep 07/16/2024 3:30 PM EST Telemedicine [facility] [address] [place] [address] Cipriano Palacio MD Focal segmental glomerulosclerosis (Primary Dx); Chronic diarrhea 07/16/2024 Travel 07/15/2024 Telephone [facility] PEDS [address] [place] [address] Cipriano Palacio MD chart prep 07/11/2024 Travel 06/23/2024 Telephone [facility] PEDS [address] [place] [address] Cipriano Palacio MD Nurse Triage from Last [...] Sign Reading Time Taken Comments Blood Pressure 118/68 09/11/2024 9:25 AM EDT Pulse 62 09/11/2024 9:25 AM EDT Temperature 36.8 ??C (98.3 ??F) 04/02/2024 8:58 [...] Diabetes: Hemoglobin A1C 04/02/2025 04/02/2024 Tobacco Screening 09/11/2025 09/11/2024 Zoster Vaccines (1 of 2) 01/24/2042 RSV [...] PRESENTATION, DETAILED AND EXTENSIVE TREATMENT PLANNING Routine 09/11/2024 9:00 AM EDT 2 DO RESIN-BASED COMPOSITE - 2 SURF, POSTERIOR Routine 09/11/2024 9:00 AM EDT CELIAC DISEASE COMPREHENSIVE PANEL Routine 08/18/2024 3:10 PM EDT Chronic diarrhea CELIAC DISEASE DIAGNOSTIC PANEL Routine 08/18/2024 3:10 PM EDT Chronic diarrhea LACTOFERRIN, QN, STOOL Routine 7:09 AM EDT Chronic diarrhea CALPROTECTIN, STOOL Routine 08/18/2024 7 :09 AM EDT Chronic diarrhea GIARDIA AG, EIA, STOOL Routine 7:09 AM EDT Chronic diarrhea OVA AND PARASITES, CONC AND PERM SMEAR Routine 08/18/2024 7:09 AM EDT Chronic diarrhea CASE PRESENTATION, DETAILED AND EXTENSIVE TREATMENT PLANNING [...] PANEL Routine 06/25/2024 9:0 0 AM EST HEPATITIS C AB W/REFL TO HCV RNA, QN, PCR Routine 04/30/2024 9:42 AM EST POCT GLYCATED HEMOGLOBIN, TOTAL Routine 04/02/2024 10:00 AM EST Prediabetes from Last 3 Months or Most Recently Relevant to Health Maintenance Results * Celiac Disease Diagnostic Panel (08/18/2024 3:10 PM EDT) Tissue Transglutaminase Antibody IgG <1.0 U/mL [facility] Comment:Value Interpretation ----- <15.0 Antibody not detected> or = 15.0 Antibody detected Gliadin (Deamidated) Ab (IgA) <1.0 U/mL [facility] Comment:Value Interpretation ----- <15.0 Antibody not detected> or = 15.0 Antibody detected Gliadin (Deaminated) Antibody IgG <1.0 U/mL [facility] Comment:Value Interpretation ----- <15.0 Antibody not detected> or = 15.0 Antibody detected Blood Venous blood specimen / Unknown 08/18/2024 3:10 PM EDT 08/18/2024 3:10 PM EDT Cipriano Pickens MD LAB BLOOD ORDERABL ES Final Result Performing Organization Address [facility] Co de Phone Number [facility] [address] [place] [phone] * Celiac Disease Comprehensive Panel (08/18/2024 3:10 PM EDT) Immunoglobulin A 99 47 - 310 mg/dL [facility] Comment:THIS TEST WAS PERFOR MED AT:[facility] [place] [id number] WATERS MD Transglutaminase IgA <1.0 U/mL [facility] Comment:Value Interpretation ----- <15.0 Antibody not detected> or = 15.0 Antibody detected Interpretation SEE NOTE [facility] Comment:No serological evide nce of celiac disease.tTG IgA may normalize in individuals with celiac diseasewho maintain a gluten-free diet. Consider HLA DQ2 andDQ8 testing to rule out celiac disease. Celiac diseaseis extremely rare in the absence of DQ2 or DQ8.THIS TEST WAS PERFORMED AT:[facility] [place] [id number] WATERS MD Blood Venous blood specimen / Unknown 08/18/2024 3:10 PM EDT 08/18/2024 3:10 PM EDT Cipriano Pickens MD LAB BLOOD ORDERABL ES Final Result Performing Organization Address [facility] Co de Phone Number [facility] [address] [place] [phone] * Calprotectin, Stool (08/18/2024 7:09 AM EDT) Calprotectin,Fecal 56 mcg/g [facility] Comment:Reference Range: <50 Normal 50-120 Borderline >120 ElevatedCalprotectin in Crohn's disease and ulcerative colitis canbe five to several thousand times above the referencepopulation (50 mcg/g or less). Levels are usually 50 mcg/gor less in healthy patients and with irritable bowelsyndrome. Repeat testing in 4-6 weeks is suggested forborderline values.THIS TEST WAS PERFORMED AT:[employer]/XINTEC [id number] DACIA CHU [id number] CROWDER MD,PHD,SHANE Stool 08/18/2024 7:09 AM EDT 08/18/2024 3:41 PM EDT Cipriano Pickens MD LAB BODY FLUIDS AN D STOOLS ORDERABLES Final Result [facility] [address] [place] [phone] * Lactoferrin, Quantitative, Stool (08/18/2024 7:09 AM EDT) Lactoferrin, Qn, Stool <6.25 <7.25 mcg/mL [facility] Comment:The following patien t samples should be excluded from use inthe test: patients with a history of HIV and/or havehepatitis B or C, patients with a history of infectiousdiarrhea (within 6 months), and patients having had acolostomy and or ileostomy within 1 month.THIS TEST WAS PERFORMED AT:[employer]/JONES [id number] [place]U [id number] CROWDER MD,PHD,SHANE Stool Rectal contents / Unknown 08/18/2024 7:09 AM EDT 08/18/2024 3:41 PM EDT Cipriano Pickens MD LAB BODY FLUIDS AN D STOOLS ORDERABLES Final Result [facility] [address] [place], [place] [phone] * Ova and Parasites (08/18/2024 7:09 AM EDT) Ova and Parasite Trichrome SEE NOTE [facility] Comment: ??OVA AND PARASITES, CONC AND PERM SMEAR ??Micro Number: ?[id number] ??Test Status: ? Final ??Specimen Source: ?? Stool ??Specimen Quality: ??Adequate ??CONCENTRATION 1: ?? No ova or parasites seen ??TRICHROME 1: ? No ova or parasites seen ? Routine Ova and Parasite exam may not detect some ? parasites that occasionally cause diarrheal ? illness. Cryptosporidium Antigen and/or Cyclospora ? and Isospora Exam may be ordered to detect these ? parasites. One negative sample does not ? necessarily rule out the presence of a parasitic ? infection. ? For additional information, please refer to ? https://education.[employer]idyClub/faq/XTA202 ? (This link is being provided for informational/ ? educational purposes only.)THIS TEST WAS PERFORMED AT:[employer] [facility] [address] [place], [place] ??[id number] JUDSON,MD Stool Rectal contents / Unknown 08/18/2024 7:09 AM EDT 08/18/2024 3:41 PM EDT Cipriano Pickens MD LAB MICROBIOLOGY - GENERAL ORDERABLES Final Result Performing Organization Address [facility] de Phone Number [facility] [address] [place] [phone] * Giardia Antigen, EIA, Stool (08/18/2024 7:09 AM EDT) Giardia Ag Stool EIA SEE NOTE [facility] Comment:GIARDIA AG, EIA, STO OL Micro Number: [id number] Test Status: Final Specimen Source: Stool Specimen Quality: Adequate Giardia Result 1: Not Detected Reference Range: Not Detected NOTE: Due to intermittent shedding, one negative sample does not necessarily rule out the presence of a parasitic infection.THIS TEST WAS PERFORMED AT:[employer] [address] [id number] WATERS MD Stool Rectal contents / Unknown 08/18/2024 7:09 AM EDT 08/18/2024 3:41 PM EDT Cipriano Pickens MD LAB BODY FLUIDS AN D STOOLS ORDERABLES Final Result Performing Organization Address [facility] de Phone Number [facility] [address] [place] [phone] * (ABNORMAL) Protein Creatinine Ratio, Urine (06/25/2024 9:01 AM EST) Creatinine, Urine 196.39 mg/dL [facility] Protein, Total, Random Urine 572(H) <12 mg/dL [facility] Protein/Creati nine Ratio, Ur 2.91(H) <0.2 [facility] Comment:The spot urine prote in:creatinine ratio may increase to 0.3during normal . 06/25/2024 9:01 AM EST 06/25/2024 9:27 AM EST Generic External Data Provider LAB URINE ORDERAB LES Final Result Performing Organization Address [facility] Co de Phone Number [facility] [address] [place] [phone] [phone] * (ABNORMAL) Vitamin D, 25-Hydroxy, Total, Immunoassay (06/25/2024 9:00 AM EST) Vitamin D 25-OH Total 20.9(L) >30 ng/mL [facility] Comment:Health Based Referen ce Values*< 20 ng/mL Inurevzgt43-13 ng/mL Insufficient> 30 ng/mL Sufficient*Riya LEON. N [...] ORDERAB LES Final Result Performing Organization Address [facility]/ZIP Co de Phone Number [facility] [address] [place] [phone] * Creatinine, Serum (06/25/2024 9:00 AM EST) Creatinine, Serum 1.06 0.5 - 1.4 mg/dL [facility] Estimated Glomerular Filt Rate >60 [facility] Comment:Chronic Kidney Disea se: Estimated GFR < 60 mL/min/1.38f6Padrbm Kidney Disease: Estimated GFR < 15 mL/min/1.73m2 06/25/2024 9:00 AM EST 06/25/2024 9:04 AM EST us Generic External Data Provider LAB BLOOD ORDERAB LES Final Result Performing Organization Address City/[facility]/ZIP Co de Phone Number [facility] [address] [place] [phone] * BUN (Blood Urea Nitrogen) (06/25/2024 9:00 AM EST) Urea Nitrogen (BUN) 10 9 - 16 mg/dL [facility] 06/25/2024 9:00 AM EST 06/25/2024 9:04 AM EST Generic External Data Provider LAB BLOOD ORDERAB LES Final Result Performing Organization Address City/[facility] Co de Phone Number [facility] [address] [place] [phone] * (ABNORMAL) Lipid Panel, Standard (06/25/2024 9:00 AM EST) Triglycerides 80 <150 mg/dL [facility] Comment:Desirable Triglyceri de: less than 150 mg/dLBorderline High Triglyceride 150-199 mg/dLHigh Triglyceride: 200-499 mg/dLVery High Triglyceride: greater than or equal to 5OO mg/dL Cholesterol 138 <200 mg/dL [facility] Comment:Desirable Cholestero l: less than 200 mg/dLBorderline High Cholesterol: 200-239 mg/dLHigh Cholesterol: greater than 239 mg/dL LDL Cholesterol Calculated 86 <100 mg/dL [facility] Comment:Desirable LDL: less than 100 mg/dLNear Optimal/Above Optimal LDL: 110- 129 mg/dLBorderline High LDL: 130-159 mg/dLHigh LDL: 160-189 mg/dLVery High LDL: greater than or equal to 190 mg/dL HDL Cholesterol 36(L) >40 mg/dL [facility] Comment:Desirable HDL: great er than 40 mg/dL Note: This HDL assay may give artificially low results in patients with liver disease. 06/25/2024 9:00 AM EST 06/25/2024 9:04 AM EST Generic External Data Provider LAB BLOOD ORDERAB LES Final Result Performing Organization Address [facility] Co de Phone Number [facility] [address] [place] [phone] * (ABNORMAL) Electrolyte Panel (06/25/2024 9:00 AM EST) Pathologist [facility] Sodium 138 135 - 145 mmol/L [facility] Potassium 3.4 3.3 - 5.1 mmol/L [facility] Chloride 109(H) 96 - 108 mmol/L [facility] Carbon Dioxide 22 22 - 29 mmol/L [facility] Anion Gap 10(L) 12 - 20 [facility] 06/25/2024 9:00 AM EST 06/25/2024 9:04 AM EST Generic External Data Provider LAB BLOOD ORDERAB LES Final Result Performing Organization Address [facility] Phone Number [facility] [address] [place] [phone] * Hepatitis C Antibody with Reflex to HCV, RNA, Quantitative, Real-Time PCR (04/30/2024 9:42 AM EST) Pathologist [facility] Hepatitis C Antibody Nonreactive Nonreactive [facility] Comment:Antibodies to HCV no t detected; does not exclude early acuteHCV infection. 04/30/2024 9:42 AM EST 04/30/2024 9:42 AM EST Generic External Data Provider LAB BLOOD ORDERAB LES Final Result Performing Organization Address [facility] Co de Phone Number [facility] [address] [place] [phone] * POCT HGB A1C (04/02/2024 10:00 AM EST) Hemoglobin A1C 5.9 4.0 - 6.0 % QC Media Lot # [id number] Lot# Expiration Date ,993 Blood 04/02/2024 10:0 0 AM EST Cipriano Pickens MD POINT OF CARE TEST ENTER/EDIT ORDERABLES Final Result from Last 3 Months or Most Recently Relevant to Health Maintenance [place] [address] [place] [address] C[facility] MEDICA[facility] STAND ADULT Care Teams Shochet Relationship Specialty Start Date End Date Cipriano Palacio MD [address] [place] [address] [phone] PCP - General Internal Medicine 03/24/24
--- OUTSIDE RECORDS SUMMARY | 2024-09-12 08:53 | XMS_ITS | Encounter Summary ---
Author Organization [employer] Address [address] [facility] [address] [place] [address] Care Team Providers Care Derrick Operator Name Role Phone Cipriano Palacio MD Primary Care Prov ider Reason for Visit * Reason Comments Filling Encounter Details Date Type Department Care Team (Late st Contact Info) Description 09/11/2024 9:00 AM EDT Office Visit [facility] ADULT DENTAL [address] [place] [address] Abdifatah Anne, DDS [address] [place] [address] Severe dental caries (Primary Dx) Social History Tobacco Use Types Packs/Day Years [...] AM EST documented as of this encounter Last Filed Vital Signs Vital Sign Reading Time Taken Comments Blood Pressure 118/68 09/11/2024 9:25 AM EDT Pulse 62 09/11/2024 9:25 AM EDT Temperature - - Respiratory Rate - - Oxygen Saturation - - Inhaled Oxygen Concentration - - Weight - - Height - - Body Mass Index - - documented in this encounter Progress Notes * Abdifatah Anne DDS - 09/11/2024 9:00 AM EDT Patient ID: Michele Rg is a 34 y.o. female. Time Out: Timeout Date: 09/11/24, Timeout Time: 922 (composite on tooth #2) Location: [facility] Tooth: Maxilla and #2 Procedure: Hinduism Verified the above with patient, assistant customer service manager, and provider. Confirmed via patient's chart, intraorally and by radiographs. Dry Cleaning Attendant: not applicable Chief Complaint Patient presents with Filling Medical Hx: Vitals: Blood pressure 118/68, pulse 62. Medications, Med Hx reviewed with patient and updated in chart. Consent Obtained: The risks, benefits, indications, potential complications, and alternatives were explained to the patient and informed consent was obtained with good understanding. Treatment Provided: Dental procedures in this visit D2392 - RESIN-BASED COMPOSITE - 2 SURF, POSTERIOR 2 DO (Completed) Service provider: Abdifatah Anne DDS Billing provider: Abdifatah Anne DDS [id number] - CASE PRESENTATION, DETAILED AND EXTENSIVE TREATMENT PLANNING (Completed) Service provider: Abdifatah Anne DDS Billing provider: Abdifatah Anne DDS Diagnosis: Severe carious lesion. Topical: 20% Benzocaine Anesthesia: 2% Lidocaine (Xylocaine) w/ 1:100,000 epinephrine Number of Cartridges: 1 Injection Type: Buccal infiltration, Palatal infiltration, and Intrapapillary injection Confirmed profound anesthesia. Isolation: high speed suction, cotton rolls, and cheek guard Prep: All caries removed, Existing scientology removed, and Preparation finalized Matrix: Tofflemire and wedge Etch: 37% Phosphoric Acid Etch Desensitizer: Gluma Liner/Base: LimeLite Nadrew: I-Andrew Hinduism Material: Filtek Kirwin Flowable Composite and Paradigm Composite Shade: A3 Pt was advised about post hypersensitivity, if a week pain persist Michele seemed to understand and agrees potential RCT (#2) Vs.exos (including # 1) may follow . Polished. Occlusion & contacts verified. Patient satisfied with comfort and esthetics. Patient tolerated procedure well. Post-operative instructions were given. Patient departed alert, oriented, and in stable condition. NV: F/U as needed / EXAM Tribal Council Member: Cielo Marquez Dentist: Abdifatah Anne DDS documented in this encounter Plan of Treatment Not on file documented as of this encounter Procedures Procedure Name Priority Date/Time Associated Diagnosis Comments 2 DO RESIN-BASED COMPOSITE - 2 SURF, POSTERIOR Routine 09/11/2024 9:00 AM EDT CASE PRESENTATION, DETAILED AND EXTENSIVE TREATMENT PLANNING Routine 09/11/2024 9:00 AM EDT documented in this encounter Visit Diagnoses Diagnosis Severe dental caries- Primary documented in this encounter Additional Health Concerns Assessment Noted Time PHQ-9 Depression Total Score: 2 03/24/20 9:25 AM EST documented as of this encounter Care Teams Derrick Operator Relationship Specialty Start Date End Date Cipriano Palacio MD [address] [place] [phone] PCP - General Internal Medicine 03/24/24 documented as of this encounter
--- OUTSIDE RECORDS SUMMARY | 2024-09-12 08:53 | XMS_ITS | Encounter Summary ---
Author Organization [employer] Address [address] [place] [address] Care Team Providers Care Day Porter Name Role Phone Cipriano Palacio MD Primary Care Prov ider Reason for Visit * Reason Onset Date Comments Results 03/27/2024 Encounter Details Date Type Department Care Team ([facility] st Contact Info) Description 03/27/2024 Telephone [facility] MEDICINE [address] [place] [address] Cipriano Palacio MD [address] [place] [phone] Results Social History Tobacco Use Types Packs/Day [...] results: Labs Date when done: 03/25/24 Facility: [facility] Labs (Romanian Speaker) documented in this encounter Plan of Treatment Not on file documented as of this encounter Visit Diagnoses Not on filedocumented in this encounter Additional Health Concerns Assessment Noted Time PHQ-9 Depression Total Score: 2 03/24/20 9:25 AM EST documented as of this encounter Care Teams Day Porter Relationship Specialty Start Date End Date Cipriano Palacio MD [address] [place] [phone] PCP - General Internal Medicine 03/24/24 documented as of this encounter
[2024-09-12 10:20] LABS: Anion Gap 12 (12-20); Blood Urea Nitrogen 15 mg/dL (9-16); Carbon Dioxide 25 mmol/L (22-29); Chloride 107 mmol/L (96-108); Estimated Glomerular Filt Rate > 60; Potassium 4.3 mmol/L (3.3-5.1); Sodium 140 mmol/L (135-145)
[2024-09-12 11:05] LABS: Creatinine Urine 121.02 mg/dL
[2024-09-12 12:27] LABS: Protein/Creatinine Ratio, Ur 3.03 (<0.2); Total Protein Urine Random 367 mg/dL (<12)
== END 2024-09-12 08:48 | disposition home or self-care (01) ==
LOC: HO.LAB 08:47
PROVIDERS: PCP Internal Medicine; Visit Provider Internal Medicine Nephrology
DX: R80.8 Other proteinuria (principal); N05.1 Unspecified nephritic syndrome with focal and segmental glomerular lesions
CPT/HCPCS: 36415; 80051; 82565; 82570; 84156; 84520; 99212

== ENCOUNTER 2024-09-12 13:40 | Outpatient (AMB) | payer MEDICAID, SELFPAY ==
--- NOTE | 2024-09-12 13:49 | HO.NEPHOV ---
Vital Signs 09/12/24 13:50 Height 5 ft Weight 151 lb 4 oz BMI 29.5 BP 130/78 Blood Pressure Location Rt brachial Position Sitting Pulse 88 Pulse Source Pulse Oximeter Pulse Oximetry (%) 99 Oxygen Delivery Method Room Air Intake Visit Reasons: FSGS Dragline Operator Helper Required: Yes Dragline Operator Helper Language: Azeri Accompanied by: Self / Same As Patient Allergies No Known Allergies Allergy (Verified 09/12/24 13:52) Do you need a note to return to daycare/school/sports/work: No HPI Comments Details: Michele is a 34 year old patient who moved to [facility] from [place] who is known to have proteinuria for a long time. She was seen for this by renal MD in [place] in the past and had work up including renal biopsy which showed FSGS. She was treated with prednisone as well as cyclosporine in the past . Currently she is on finerenone and lisinopril 2.5 mg. She says that her ACEI could not be increased as it was dropping her BP. She has no edema and denies any frothy/foamy urine. Her last serum creatinine was 1.06. She has no H/O DVT's or PE's. She denies orthostatic symptoms. She has no family H/O FSGS. She does not have Kerendia and is currently not getting through her insurance company [facility] Medical History Proteinuria Surgical History Hx of tubal ligation Family History Paternal Grandmother Hypertension Diabetes High cholesterol Paternal Grandfather Diabetes High cholesterol Hypertension Social History Alcohol intake: current Comment: Socially Patient Tobacco Use Status: Never used Tobacco Review of Systems Const All systems reviewed & are unremarkable except as noted in HPI and below Physical Exam Vital Signs: Last Vital Signs Pulse 88 09/12/24 13:50 BP 130/78 09/12/24 13:50 Pulse Ox 99 09/12/24 13:50 Oxygen Delivery Method Room Air 09/12/24 13:50 BMI result Body Mass Index 29.5 Const General: comfortable and no acute distress Orientation/consciousness: patient oriented x3 HEENT Head: Yes normocephalic Mouth: Normal oral and palatal mucosa present Eyes EOM: EOMs intact bilaterally Neck Neck: Yes supple Resp Auscultation: clear to auscultation bilaterally Cardio Jugular venous distension: no JVD Rate: regular rate GI Palpation (GI): Soft to palpation Auscultation: normal bowel sounds General: Yes no CVA tenderness Back/Spine/Pelvis Back: no CVA tenderness Skin General skin exam: no rashes or lesions noted Neuro General: patient oriented x3 and moves all extremities Extrem General: Yes no pedal edema Results Reviewed Nephrology Results: Hgb 13.3 g/dl (12.0-16.0) 04/30/24 WBC 8.3 X10*3/uL (4.8-10.8) 04/30/24 Plt Count 379 X10*3/uL (160-400) 04/30/24 Sodium 140 mmol/L (135-145) 09/12/24 Potassium 4.3 mmol/L (3.3-5.1) 09/12/24 Chloride 107 mmol/L (96-108) 09/12/24 Carbon Dioxide 25 mmol/L (22-29) 09/12/24 BUN 15 mg/dL (9-16) 09/12/24 Creatinine 1.02 mg/dL (0.5-1.4) 09/12/24 Calcium 9.1 mg/dL (8.4-10.2) 03/25/24 Urine Protein >=1000 (4+) mg/dL (Neg-Trace) H 03/25/24 Urine Creatinine 121.02 mg/dL 09/12/24 Protein/Creatinin Ratio 3.03 (<0.2) H 09/12/24 Assessment & Plan Assessment & Plan (1) FSGS (focal segmental glomerulosclerosis): Code(s): N05.1 - Unspecified nephritic syndrome with focal and segmental glomerular lesions Category: Medical (2) Proteinuria: Code(s): R80.9 - Proteinuria, unspecified Category: Medical Qualifiers: Proteinuria type: other Qualified Code(s): R80.8 - Other proteinuria (3) Vitamin D deficiency: Code(s): E55.9 - Vitamin D deficiency, unspecified Category: Medical (4) Dyslipidemia: Code(s): E78.5 - Hyperlipidemia, unspecified Category: Medical Plan Michele has H/O biopsy proven FSGS which was treated with prednisone as well as cyclosporin in [place]. Currently she is not on Finerenone . I increased her lisiniopril to 10 mg bid. She needs to cut back sodium in the diet. She should continue Vitamin D 2000 Units daily. I have requested her renal records from [place]. She may need a repeat renal biopsy as well as addition of further medications based on evolving data. She should avoid NSAID's. Answered all questions. F/U given Orders: Orders Electrolytes 3 Months N05.1 - Unspecified nephritic syndrome with focal and segmental glomerular lesions, R80.8 - Other proteinuria Blood Urea Nitrogen 3 Months N05.1 - Unspecified nephritic syndrome with focal and segmental glomerular lesions, R80.8 - Other proteinuria Creatinine 3 Months N05.1 - Unspecified nephritic syndrome with focal and segmental glomerular lesions, R80.8 - Other proteinuria Protein Creatinine Ratio, Ur 3 Months N05.1 - Unspecified nephritic syndrome with focal and segmental glomerular lesions, R80.8 - Other proteinuria Medications: Changed From lisinopril 2.5 mg PO BID 60 tabs 3RF To lisinopril 10 mg PO BID 60 tabs 6RF Coding Level of Care Code Est Pt Level 4 (27635) Diagnoses FSGS (focal segmental glomerulosclerosis) N05.1 Other proteinuria R80.8 Proteinuria type: other Vitamin D deficiency E55.9 Dyslipidemia E78.5
[2024-09-12 13:50] VITALS: BP 130/78; PULSE 88; O2SAT 99; BMI 29.5
--- OUTSIDE RECORDS SUMMARY | 2024-09-12 14:24 | XMS_ITS | Encounter Summary ---
Author Organization [employer] Address [address] [facility] 7[address] [place] [address] Care Team Providers Care Arm Rest Builder Name Role Phone Cipriano Palacio MD Primary Care Prov ider Reason for Visit * Reason Comments Filling Encounter Details Date Type Department Care Team (Late st Contact Info) Description 09/11/2024 9:00 AM EDT Office Visit [facility] [address] [place] [address] Abdifatah Anne, DDS [address] [place] [address] Severe dental caries (Primary Dx) Social History [...] Time: 922 (composite on tooth #2) Location: [facility] Tooth: Maxilla and #2 Procedure: Roman Catholic Verified the above with patient, night assistant, and provider. Confirmed via patient's chart, intraorally and by radiographs. Qualitative Field Coordinator: not applicable Chief Complaint Patient presents with [...] Service provider: Abdifatah Anne DDS Billing provider: Abdfiatah Anne DDS Diagnosis: Severe carious lesion. Topical: 20% Benzocaine Anesthesia: 2% Lidocaine (Xylocaine) w/ 1:100,000 epinephrine Number of Cartridges: 1 Injection Type: Buccal infiltration, Palatal infiltration, and Intrapapillary injection Confirmed profound anesthesia. Isolation: high speed suction, cotton rolls, and cheek guard Prep: All caries removed, Existing latter day removed, and Preparation finalized Matrix: Tofflemire and wedge Etch: 37% Phosphoric Acid Etch Desensitizer: Gluma Liner/Base: LimeLite Andrew: I-Andrew Roman Catholic Material: Filtek Medicine Bow Flowable Composite and Paradigm Composite Shade: A3 [...] condition. NV: F/U as needed / EXAM Farm Crew Leader: Cielo Marquez Dentist: Abdifatah Anne DDS documented [...] documented as of this encounter Care Teams Arm Rest Builder Relationship Specialty Start Date End Date Cipriano Palacio MD [address] [place] [phone] PCP - General Internal Medicine 03/24/24 documented as of this encounter
--- OUTSIDE RECORDS SUMMARY | 2024-09-12 14:24 | XMS_ITS | Clinical Summary ---
Author Organization [employer] Address [address] [facility] 7[address] [place] [address] Care Team Providers Care Courtesy Bus Driver Name Role Phone Cipriano Palacio MD Primary [...] (03/24/2024 2:49 PM EST): Patient moved from [place], she had kidney biopsy, is on kerendia 10mg and lisinopril 2.5mg, will refer to nephrology Infertility counseling 03/24/2024 Assessment & Plan (03/24/2024 2:51 PM EST): Patient underwent tubal ligation 10 years ago, she is interested in getting , will refer to fertility clinic to review options Encounters Date Type Department Care Team Description 09/11/2024 9:00 AM EDT Office Visit [facility] [address] [place] [address] Abdifatah Anne DDS Severe dental caries (Primary Dx) 08/13/2024 Telephone [facility] [address] [place] [address] Cipriano Palacio MD Lab Orders (/) 08/04/2024 11:30 AM EDT Office Visit [facility] [address] [place] [address] Abdifatah Anne DDS Dental caries (Primary Dx) 08/01/2024 Population Health Risk Score Community Care [facility] (C3) Department [address] [place] [address] [phone] Provider, Population Health Generic 07/30/2024 3:15 PM EDT Telemedicine [facility] [address] [place] [address] Cpiriano Palacio MD Chronic diarrhea (Primary Dx) 07/30/2024 Travel 07/29/2024 Telephone [facility] [address] [place] [address] Cipriano Palacio MD chart prep 07/16/2024 3:30 PM EST Telemedicine [facility] [address] [place] [address] Cipriano Palacio MD Focal segmental glomerulosclerosis (Primary Dx); Chronic diarrhea 07/16/2024 Travel 07/15/2024 Telephone [facility] [address] [place] [address] Cipriano Palacio MD chart prep 07/11/2024 Travel 06/23/2024 Telephone [facility] [address] [place] [address] Cipriano Palacio MD Nurse Triage from Last [...] Procedure Name Priority Date/Time Associated Diagnosis Comments CREATININE, SERUM Routine 09/12/2024 9:0 2 AM EDT UREA NITROGEN (BUN) Routine 09/12/2024 9 :02 AM EDT ELECTROLYTE PANEL Routine 09/12/2024 9:0 2 AM EDT PROTEIN CREATININE RATIO, URINE Routine 09/12/2024 9:00 AM EDT CASE PRESENTATION, DETAILED AND [...] Recently Relevant to Health Maintenance Results * Creatinine, Serum (09/12/2024 9:02 AM EDT) Only the most recent of2 resultswithin the time period is included. Creatinine, Serum 1.02 0.5 - 1.4 mg/dL [facility] Estimated Glomerular Filt Rate >60 [facility] Comment:Chronic Kidney Disea se: Estimated GFR < 60 mL/min/1.70v1Xrcdtz Kidney Disease: Estimated GFR < 15 mL/min/1.73m2 09/12/2024 9:02 AM EDT 09/12/2024 9:02 AM EDT us Generic External Data Provider LAB BLOOD ORDERAB LES Final Result Performing Organization Address [facility] Co de Phone Number [facility] [address] [place] [phone] * BUN (Blood Urea Nitrogen) (09/12/2024 9:02 AM EDT) Only the most recent of2 resultswithin the time period is included. Urea Nitrogen (BUN) 15 9 - 16 mg/dL [facility] 09/12/2024 9:02 AM EDT 09/12/2024 9:02 AM EDT us Generic External Data Provider LAB BLOOD ORDERAB LES Final Result Performing Organization Address [facility] de Phone Number [facility] [address] [place] [phone] * Electrolyte Panel (09/12/2024 9:02 AM EDT) Only the most recent of2 resultswithin the time period is included. Sodium 140 135 - 145 mmol/L [facility] Potassium 4.3 3.3 - 5.1 mmol/L [facility] Chloride 107 96 - 108 mmol/L [facility] Carbon Dioxide 25 22 - 29 mmol/L [facility] Anion Gap 12 12 - 20 [facility] 09/12/2024 9:02 AM EDT 09/12/2024 9:02 AM EDT Generic External Data Provider LAB BLOOD ORDERAB LES Final Result Performing Organization Address [facility] de Phone Number [facility] [address] [place] [phone] * (ABNORMAL) Protein Creatinine Ratio, Urine (09/12/2024 9:00 AM EDT) Only the most recent of2 resultswithin the time period is included. Creatinine, Urine 121.02 mg/dL [facility] Protein, Total, Random Urine 367(H) <12 mg/dL [facility] Protein/Creati nine Ratio, Ur 3.03(H) <0.2 [facility] Comment:The spot urine prote in:creatinine ratio may increase to 0.3during normal . 09/12/2024 9:00 AM EDT 09/12/2024 10:10 AM EDT Generic External Data Provider LAB URINE ORDERAB LES Final Result Performing Organization Address [facility] de Phone Number [facility] [address] [place] [phone] * Celiac Disease Diagnostic Panel (08/18/2024 3:10 PM EDT) Tissue Transglutaminase Antibody IgG <1.0 U/mL [facility] Comment:Value Interpretation ----- <15.0 Antibody not detected> or = 15.0 Antibody detected Gliadin (Deamidated) Ab (IgA) <1.0 U/mL [facility] Comment:Value Interpretation ----- <15.0 Antibody not detected> or = 15.0 Antibody detected Gliadin (Deaminated) Antibody IgG <1.0 U/mL [facility] Comment:Value Interpretation ----- <15.0 Antibody not detected> or = 15.0 Antibody detected Blood Venous blood specimen / Unknown 08/18/2024 3:10 PM EDT 08/18/2024 3:10 PM EDT Cipriano Pickens MD LAB BLOOD ORDERABL ES Final Result Performing Organization Address [facility] Co de Phone Number [facility] [address] [place] [phone] * Celiac Disease Comprehensive Panel (08/18/2024 3:10 PM EDT) Immunoglobulin A 99 47 - 310 mg/dL [facility] Comment:THIS TEST WAS PERFOR MED AT:[facility] [place] [phone] WATERS MD Transglutaminase IgA <1.0 U/mL [facility] Comment:Value Interpretatio n----- <15.0 Antibody not detected> or = 15.0 Antibody detected Interpretation SEE NOTE [facility] Comment:No serological evide nce of celiac disease.tTG IgA may normalize in individuals with celiac diseasewho maintain a gluten-free diet. Consider HLA DQ2 andDQ8 testing to rule out celiac disease. Celiac diseaseis extremely rare in the absence of DQ2 or DQ8.THIS TEST WAS PERFORMED AT:[facility] [place] [phone] WATERS MD Blood Venous blood specimen / Unknown 08/18/2024 3:10 PM EDT 08/18/2024 3:10 PM EDT us Cipriano Pickens MD LAB BLOOD ORDERABL ES Final Result Performing Organization Address [facility]/ZIP Co de Phone Number [facility] [address] [place] [phone] * Calprotectin, Stool (08/18/2024 7:09 AM EDT) Calprotectin,Fecal 56 mcg/g [facility] Comment:Reference Range: <50 Normal 50-120 Borderline >120 ElevatedCalprotectin in Crohn's disease and ulcerative colitis canbe five to several thousand times above the referencepopulation (50 mcg/g or less). Levels are usually 50 mcg/gor less in healthy patients and with irritable bowelsyndrome. Repeat testing in 4-6 weeks is suggested forborderline values.THIS TEST WAS PERFORMED AT:[id number] [place] [phone] CROWDER MD,PHD,SHANE Stool 08/18/2024 7:09 AM EDT 08/18/2024 3:41 PM EDT Cipriano Pickens MD LAB BODY FLUIDS AN D STOOLS ORDERABLES Final Result Performing Organization Address [facility] Co de Phone Number [facility] [address] [place] [phone] * Lactoferrin, Quantitative, Stool (08/18/2024 7:09 AM EDT) Lactoferrin, Qn, Stool <6.25 <7.25 mcg/mL [facility] Comment:The following patien t samples should be excluded from use inthe test: patients with a history of HIV and/or havehepatitis B or C, patients with a history of infectiousdiarrhea (within 6 months), and patients having had acolostomy and or ileostomy within 1 month.THIS TEST WAS PERFORMED AT:[facility]/[address] [id number] [place] [phone] CROWDER MD,PHD,SHANE Stool Rectal contents / Unknown 08/18/2024 7:09 AM EDT 08/18/2024 3:41 PM EDT Cipriano Pickens MD LAB BODY FLUIDS AN D STOOLS ORDERABLES Final Result Performing Organization Address [facility] Co de Phone Number [facility] [address] [place] [phone] * Ova and Parasites (08/18/2024 7:09 AM EDT) Ova and Parasite Trichrome SEE NOTE [facility] Comment: ??OVA AND PARASITES, CONC AND PERM SMEAR ??Micro Number: ?[id number] ??Test Status: ? Final ??Specimen Source: ?? [...] For additional information, please refer to ? [email or web address]/faq/FDW536 ? (This link is being provided for informational/ ? educational purposes only.)THIS TEST WAS PERFORMED AT:[facility] [address] [place], [place] ??[phone] JUDSON,MD Stool Rectal contents / Unknown 08/18/2024 7:09 AM EDT 08/18/2024 3:41 PM EDT Cipriano Pickens MD LAB MICROBIOLOGY - GENERAL ORDERABLES Final Result Performing Organization Address [facility] Co de Phone Number [facility] [address] [place] [phone] * Giardia Antigen, EIA, Stool (08/18/2024 7:09 AM EDT) Giardia Ag Stool EIA SEE NOTE [facility] Comment:GIARDIA AG, EIA, STO OL Micro Number: [id number] Test Status: Final Specimen Source: Stool Specimen Quality: Adequate Giardia Result 1: Not Detected Reference Range: Not Detected NOTE: Due to intermittent shedding, one negative sample does not necessarily rule out the presence of a parasitic infection.THIS TEST WAS PERFORMED AT:[address] [address] [id number] WATERS MD Stool Rectal contents / Unknown 08/18/2024 7:09 AM EDT 08/18/2024 3:41 PM EDT Cipriano Pickens MD LAB BODY FLUIDS AN D STOOLS ORDERABLES Final Result Performing Organization Address [facility] Co de Phone Number [facility] [address] [place] [phone] * (ABNORMAL) Vitamin D, 25-Hydroxy, Total, Immunoassay (06/25/2024 9:00 AM EST) Vitamin D 25-OH Total 20.9(L) >30 ng/mL [facility] Comment:Health Based Referen ce Values*< 20 ng/mL [id number] ng/mL Insufficient> 30 ng/mL Sufficient*Riya LEON. N [...] ORDERAB LES Final Result Performing Organization Address [facility] Co de Phone Number [facility] [address] [place] [phone] * (ABNORMAL) Lipid Panel, Standard (06/25/2024 9:00 AM EST) Triglycerides 80 <150 mg/dL [facility] Comment:Desirable Triglyceri de: less than 150 mg/dLBorderline High Triglyceride 150-199 mg/dLHigh Triglyceride: 200-499 mg/dLVery High Triglyceride: greater than or equal to 5OO mg/dL Cholesterol 138 <200 mg/dL [facility] Comment:Desirable Cholestero l: less than 200 mg/dLBorderline High Cholesterol: 200-239 mg/dLHigh Cholesterol: greater than 239 mg/dL LDL Cholesterol Calculated 86 <100 mg/dL [facility] Comment:Desirable LDL: less than 100 mg/dLNear Optimal/Above Optimal LDL: 110- 129 mg/dLBorderline High LDL: 130-159 mg/dLHigh LDL: 160-189 mg/dLVery High LDL: greater than or equal to 190 mg/dL HDL Cholesterol 36(L) >40 mg/dL [facility] Comment:Desirable HDL: great er than 40 mg/dL Note: This HDL assay may give artificially low results in patients with liver disease. 06/25/2024 9:00 AM EST 06/25/2024 9:04 AM EST us Generic External Data Provider LAB BLOOD ORDERAB LES Final Result Performing Organization Address [facility]/ZIP Co de Phone Number [facility] [address] [place] [phone] * Hepatitis C Antibody with Reflex to HCV, RNA, Quantitative, Real-Time PCR (04/30/2024 9:42 AM EST) Hepatitis C Antibody Nonreactive Nonreactive [facility] Comment:Antibodies to HCV no t detected; does not exclude early acuteHCV infection. 04/30/2024 9:42 AM EST 04/30/2024 9:42 AM EST Generic External Data Provider LAB BLOOD ORDERAB LES Final Result [facility] [address] [place] [phone] * POCT HGB A1C (04/02/2024 10:00 AM EST) Hemoglobin A1C 5.9 4.0 - 6.0 % QC Media Lot # [id number] Lot# Expiration Date 756 Blood 04/02/2024 10:0 0 AM EST Cipriano Pickens MD POINT OF CARE TEST ENTER/EDIT ORDERABLES Final Result from Last 3 Months or Most Recently Relevant to Health Maintenance Insurance [facility] C3 DENTAL-[facility] MEDICAID STAND ADULT Care Teams Courtesy Bus Driver Relationship Specialty Start Date End Date Cipriano Palacio MD [address] [place] [phone] PCP - General Internal Medicine 03/24/24
--- OUTSIDE RECORDS SUMMARY | 2024-09-12 14:24 | XMS_ITS | Encounter Summary ---
Author Organization [employer] Address [address] [place] [address] Care Team Providers Care Senior Manager Quality Assurance Name Role Phone Cipriano Palacio MD Primary Care Prov ider Reason for Visit * Reason Onset Date Comments Results 03/27/2024 Encounter Details Date Type Department Care Team ([facility] st Contact Info) Description 03/27/2024 Telephone [facility] [address] [place] [address] Cipriano Palacio MD [address] [place] [phone] Results Social History Tobacco Use Types Packs/Day [...] results: Labs Date when done: 03/25/24 Facility: [facility] Labs (Kinyarwanda Speaker) documented in this encounter Plan of Treatment Not on file documented as of this encounter Visit Diagnoses Not on filedocumented in this encounter Additional Health Concerns Assessment Noted Time PHQ-9 Depression Total Score: 2 03/24/20 9:25 AM EST documented as of this encounter Care Teams Senior Manager Quality Assurance Relationship Specialty Start Date End Date Cipriano Palacio MD [address] [place] [phone] PCP - General Internal Medicine 03/24/24 documented as of this encounter
== END 2024-09-12 14:21 | disposition home or self-care (01) ==
LOC: HO.HKA 13:41
PROVIDERS: PCP Internal Medicine; Visit Provider Internal Medicine Nephrology
DX: N05.1 Unspecified nephritic syndrome with focal and segmental glomerular lesions (principal); R80.8 Other proteinuria; E55.9 Vitamin D deficiency, unspecified; E78.5 Hyperlipidemia, unspecified
CPT/HCPCS: 99214

== ENCOUNTER 2024-10-14 14:05 | Outpatient (REF) | payer MEDICAID, SELFPAY ==
--- OUTSIDE RECORDS SUMMARY | 2024-10-14 14:18 | XMS_ITS | Clinical Summary ---
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 Active loperamide (Imodium) 2 MG capsule TAKE 1 TO 2 CAPSULES BY MOUTH 4 TIMES A DAY IN THE MORNING, AT NOON, IN THE EVENING, AND AT BEDTIME NEEDED FOR DIARRHEA 60 capsule 5 Active Active Problems Problem Noted Date Diagnosed Date Missed period 10/14/2024 Elevated blood pressure reading 10/14/2024 Severe dental caries 08/04/2024 Chronic diarrhea 07/17/2024 [...] (03/24/2024 2:49 PM EST): Patient moved from [place], she had kidney biopsy, is on kerendia 10mg and lisinopril 2.5mg, will refer to nephrology Infertility counseling 03/24/2024 Assessment & Plan (03/24/2024 2:51 PM EST): Patient underwent tubal ligation 10 years ago, she is interested in getting , will refer to fertility clinic to review options Encounters Date Type Department Care Team Description 10/14/2024 1:40 PM EDT Office Visit [facility] [address] [place] [address] Elevated blood pressure reading (Primary Dx); Missed period 10/06/2024 Refill [facility] [address] [place] [address] Cipriano Palacio MD 09/11/2024 9:00 AM EDT Office Visit [facility] [address] [place] [address] Abdifatah Anne DDS Severe dental caries (Primary Dx) 08/13/2024 Telephone [facility] [address] [place] [phone] Cipriano Palacio MD Lab Orders (/) 08/04/2024 11:30 AM EDT Office Visit [facility] [address] [place] [phone] Abdifatah Anne DDS Dental caries (Primary Dx) 08/01/2024 Population Health Risk Score [facility] () Department [address] [place] [phone] Provider, Population Health Generic 07/30/2024 3:15 PM EDT Telemedicine [facility] [address] [place] [address] Cipriano Palacio MD Chronic diarrhea (Primary Dx) 07/30/2024 Travel 07/29/2024 Telephone [facility] [address] [place] [address] Cipriano Palacio MD chart prep from Last 3 Months Family History Medical History Relation Name Comments Diabetes Father Hyperlipidemia Father Hypertension Father heart condition Father No Known Problems Mother Diabetes Paternal Grandmother Hypertension Paternal Grandmother Cancer Neg Hx Relation Name Status Comments Father Mother Paternal Grandmother Social History Tobacco Use Types Packs/Day Years Used Date Smoking Tobacco: Never Passive Smoke Exposure: Never Smokeless Tobacco: Never Tobacco Cessation:Counseling Given: [...] Sign Reading Time Taken Comments Blood Pressure 146/92 10/14/2024 2:01 PM EDT Pulse 88 10/14/2024 1:38 PM EDT Temperature 35.3 ??C (95.6 ??F) 10/14/2024 1:38 PM ED T Respiratory Rate 16 10/14/2024 1:38 PM EDT Oxygen Saturation - - Inhaled Oxygen Concentration - - Weight 68.4 kg (150 lb 12.8 oz) 10/14/2024 1:38 PM EDT Height 152.4 cm (5') 10/14/2024 1:38 PM EDT Body Mass Index 29.45 10/14/2024 1:38 PM EDT Plan of Treatment Upcoming Encounters Date Type Department Care Team (Late st Contact Info) Description 10/23/2024 9:30 AM EDT Procedure Visit [facility] [address] [place] [address] Julia Rosado, [facility] [address] [place] [address] Health Maintenance Due Date Last Done Comments Dental Oral Exam 1992 Dental Prophylaxis 1992 Dental X-Ray: Bitewings 1992 Dental X-Ray: Full Mouth 1992 HIV Screening 1992 SDOH Screening 1992 Disability Screening 1992 Alcohol/Substance Use Screening 2004 Family Planning (PISQ) 01/24/2007 DTaP/Tdap/Td Vaccines (1 - Tdap) 01/24/2011 Hepatitis B Vaccines (1 of 3 - 19+ 3-dose series) 01/24/2011 Pap Smear 01/24/2013 Cervical Cancer Screening 01/24/2022 HPV/Cotest 01/24/2022 COVID-19 Vaccine (1 - 2023-2 5 season) 2024 Influenza Vaccine (#1) 2024 Depression Screening 03/24/2025 03/24/2024, 03/24/2024 Diabetes: Hemoglobin A1C 04/02/2025 04/02/2024 Tobacco Screening 10/14/2025 10/14/2024 Zoster Vaccines (1 of 2) 01/24/2042 RSV [...] patient's age to complete this topic Meningococcal B Vaccine Aged Out No l onger eligible based on patient's age to complete [...] Procedure Name Priority Date/Time Associated Diagnosis Comments POCT , URINE Routine 10/14/2024 1:47 PM EDT Missed period CREATININE, SERUM Routine 09/12/2024 9:0 2 AM [...] PROBLEM FOCUSED Routine 08/04/2024 11:30 AM EDT HEPATITIS C AB W/REFL TO HCV RNA, QN, PCR Routine 04/30/2024 9:42 AM EST POCT GLYCATED HEMOGLOBIN, TOTAL Routine 04/02/2024 10:00 AM EST Prediabetes from Last 3 Months or Most Recently Relevant to Health Maintenance Results * POCT Urine (10/14/2024 1:47 PM EDT) Preg Test, Ur Negative Negative, Indeterminate, None Detected, Invalid, Specimen unsatisfactory for evaluation, Weakly Positive, 2+ QC Media Lot # [id number] Lot# Expiration Date QC TEST Urine 10/14/2024 1:47 PM EDT Mary High MD POINT OF CARE TEST EN TER/EDIT ORDERABLES Final Result * Creatinine, Serum (09/12/2024 9:02 AM EDT) Creatinine, Serum 1.02 0.5 - 1.4 mg/dL [facility] Estimated Glomerular Filt Rate >60 [facility] Comment:Chronic Kidney Disea se: Estimated GFR < 60 mL/min/[id number] Kidney Disease: Estimated GFR < 15 mL/min/1.73m2 09/12/2024 9:02 AM EDT 09/12/2024 9:02 AM EDT Generic External Data Provider LAB BLOOD ORDERAB LES Final Result Performing Organization Address City/[facility]/ZIP Co de Phone Number [facility] [address] [place] [phone] * BUN (Blood Urea Nitrogen) (09/12/2024 9:02 AM EDT) Urea Nitrogen (BUN) 15 9 - 16 mg/dL [facility] 09/12/2024 9:02 AM EDT 09/12/2024 9:02 AM EDT Generic External Data Provider LAB BLOOD ORDERAB LES Final Result Performing Organization Address [facility]/ZIP Co de Phone Number [facility] [address] [place] [phone] * Electrolyte Panel (09/12/2024 9:02 AM EDT) Sodium 140 135 - 145 mmol/L [facility] Potassium 4.3 3.3 - 5.1 mmol/L [facility] Chloride 107 96 - 108 mmol/L [facility] Carbon Dioxide 25 22 - 29 mmol/L [facility] Anion Gap 12 12 - 20 [facility] 09/12/2024 9:02 AM EDT 09/12/2024 9:02 AM EDT Generic External Data Provider LAB BLOOD ORDERAB LES Final Result Performing Organization Address [facility] de Phone Number [facility] [address] [place] [phone] * (ABNORMAL) Protein Creatinine Ratio, Urine (09/12/2024 9:00 AM EDT) Creatinine, Urine 121.02 mg/dL [facility] Protein, Total, Random Urine 367(H) <12 mg/dL [facility] Protein/Creati nine Ratio, Ur 3.03(H) <0.2 [facility] Comment:The spot urine prote in:creatinine ratio may increase to 0.3during normal . 09/12/2024 9:00 AM EDT 09/12/2024 10:10 AM EDT Generic External Data Provider LAB URINE ORDERAB LES Final Result Performing Organization Address [facility] de Phone Number [facility] [address] [place] [phone] * Celiac Disease Diagnostic Panel (08/18/2024 3:10 PM EDT) Tissue Transglutaminase Antibody IgG <1.0 U/mL [facility] Comment:Value Interpretation ----- <15.0 Antibody not detected> or = 15.0 Antibody detected Gliadin (Deamidated) Ab (IgA) <1.0 U/mL [facility] Comment:Value Interpretation ----- <15.0 Antibody not detected> or = 15.0 Antibody detected Gliadin (Deaminated) Antibody IgG <1.0 U/mL [facility] Comment:Value Interpretation ----- <15.0 Antibody not detected> or = 15.0 Antibody detected Blood Venous blood specimen / Unknown 08/18/2024 3:10 PM EDT 08/18/2024 3:10 PM EDT Cipriano Pickens MD LAB BLOOD ORDERABL ES Final Result Performing Organization Address [facility] Co de Phone Number [facility] [address] [place] [phone] [phone] * Celiac Disease Comprehensive Panel (08/18/2024 3:10 PM EDT) Immunoglobulin A 99 47 - 310 mg/dL [facility] Comment:THIS TEST WAS PERFOR MED AT:[facility] [place] [id number] WATERS MD Transglutaminase IgA <1.0 U/mL [facility] Comment:Value Interpretation ----- <15.0 Antibody not detected> or = 15.0 Antibody detected Interpretation SEE NOTE [facility] Comment:No serological evide nce of celiac disease.tTG IgA may normalize in individuals with celiac diseasewho maintain a gluten-free diet. Consider HLA DQ2 andDQ8 testing to rule out celiac disease. Celiac diseaseis extremely rare in the absence of DQ2 or DQ8.THIS TEST WAS PERFORMED AT:[facility] [place] [phone] WATERS MD Blood Venous blood specimen / Unknown 08/18/2024 3:10 PM EDT 08/18/2024 3:10 PM EDT us Cipriano Pickens MD LAB BLOOD ORDERABL ES Final Result Performing Organization Address [facility]/ZIP Co de Phone Number [facility] [address] [place] [address] [phone] * Calprotectin, Stool (08/18/2024 7:09 AM EDT) Calprotectin,Fecal 56 mcg/g [facility] Comment:Reference Range: <50 Normal 50-120 Borderline >120 ElevatedCalprotectin in Crohn's disease and ulcerative colitis canbe five to several thousand times above the referencepopulation (50 mcg/g or less). Levels are usually 50 mcg/gor less in healthy patients and with irritable bowelsyndrome. Repeat testing in 4-6 weeks is suggested forborderline values.THIS TEST WAS PERFORMED AT:[facility]/J[address]ES [id number] [address]HBGZDAMANDA CROWDER MD,PHD,SHANE Stool 08/18/2024 7:09 AM EDT 08/18/2024 3:41 PM EDT Cipriano Pickens MD LAB BODY FLUIDS AN D STOOLS ORDERABLES Final Result Performing Organization Address [facility] Co de Phone Number [facility] [address] [place] [phone] * Lactoferrin, Quantitative, Stool (08/18/2024 7:09 AM EDT) Lactoferrin, Qn, Stool <6.25 <7.25 mcg/mL [facility] Comment:The following patien t samples should be excluded from use inthe test: patients with a history of HIV and/or havehepatitis B or C, patients with a history of infectiousdiarrhea (within 6 months), and patients having had acolostomy and or ileostomy within 1 month.THIS TEST WAS PERFORMED AT:[facility]/JONES [id number] [place] [id number] CROWDER MD,PHD,SHANE Stool Rectal contents / Unknown 08/18/2024 7:09 AM EDT 08/18/2024 3:41 PM EDT Cipriano Pickens MD LAB BODY FLUIDS AN D STOOLS ORDERABLES Final Result Performing Organization Address [facility]/ZIP Co de Phone Number [facility] [address] [place] [phone] * Ova and Parasites (08/18/2024 7:09 AM EDT) Ova and Parasite Trichrome SEE NOTE [facility] Comment: ??OVA AND PARASITES, CONC AND PERM SMEAR ??Micro Number: ?[id number] ??Test Status: ? Final ??Specimen Source: ?? [...] For additional information, please refer to ? [email or web address] ? (This link is being provided for informational/ ? educational purposes only.)THIS TEST WAS PERFORMED AT:[facility]- [id number] [place], [place] ??[id number] JUDSON,MD Stool Rectal contents / Unknown 08/18/2024 7:09 AM EDT 08/18/2024 3:41 PM EDT Cipriano Pickens MD LAB MICROBIOLOGY - GENERAL ORDERABLES Final Result Performing Organization Address [facility] Co de Phone Number [facility] [address] [place] [phone] * Giardia Antigen, EIA, Stool (08/18/2024 7:09 AM EDT) Giardia Ag Stool EIA SEE NOTE [facility] Comment:GIARDIA AG, EIA, STO OL Micro Number: [id number] Test Status: Final Specimen Source: Stool Specimen Quality: Adequate Giardia Result 1: Not Detected Reference Range: Not Detected NOTE: Due to intermittent shedding, one negative sample does not necessarily rule out the presence of a parasitic infection.THIS TEST WAS PERFORMED AT:[facility] [place] [id number] WATERS MD Stool Rectal contents / Unknown 08/18/2024 7:09 AM EDT 08/18/2024 3:41 PM EDT Cipriano Pickens MD LAB BODY FLUIDS AN D STOOLS ORDERABLES Final Result Performing Organization Address [facility] Co de Phone Number [facility] [address] [place] [phone] * Hepatitis C Antibody with Reflex to HCV, RNA, Quantitative, Real-Time PCR (04/30/2024 9:42 AM EST) Hepatitis C Antibody Nonreactive Nonreactive [facility] Comment:Antibodies to HCV no t detected; does not exclude early acuteHCV infection. 04/30/2024 9:42 AM EST 04/30/2024 9:42 AM EST Generic External Data Provider LAB BLOOD ORDERAB LES Final Result Performing Organization Address City/[facility]/ZIP Co de Phone Number [facility] [address] [place] [phone] * POCT HGB A1C (04/02/2024 10:00 AM EST) Hemoglobin A1C 5.9 4.0 - 6.0 % QC Media Lot # [id number] Lot# Expiration Date [id number] Blood 04/02/2024 10:0 0 AM EST Cipriano Pickens MD POINT OF CARE TEST ENTER/EDIT ORDERABLES Final Result from Last 3 Months or Most Recently Relevant to Health Maintenance Insurance [id number] [facility] MEDICAID STAND ADULT Care Teams [employer] Teacher Relationship Specialty Start Date End Date Cipriano Palacio MD [address] [place] [phone] PCP - General Internal Medicine 03/24/24
[2024-10-14 16:22] LABS: HCG Quantitative < 2 mIU/mL
== END 2024-10-14 14:06 | disposition home or self-care (01) ==
LOC: HO.HHCL 14:05
PROVIDERS: Visit Provider Internal Medicine
DX: N92.6 Irregular menstruation, unspecified (principal)
CPT/HCPCS: 36415; 84702

== ENCOUNTER 2024-11-03 13:30 | Outpatient (REF) | payer MEDICAID, SELFPAY ==
--- OUTSIDE RECORDS SUMMARY | 2024-11-03 14:58 | XMS_ITS | Clinical Summary ---
Author Organization [employer] Address [address] [facility] [place] [address] Care Team Providers Care [employer] Name Role Phone Cipriano Palacio MD Primary [...] Noted Date Diagnosed Date Missed period 10/14/2024 Assessment & Plan (10/31/2024 11:37 AM EDT): Negative test for , will order pelvic ultrasound, call back if symptoms are worsening Assessment & Plan (10/14/2024 3:24 PM EDT): Patient will be contacted with results Elevated blood pressure reading 10/14/2024 Assessment & Plan (10/14/2024 3:24 PM EDT): I advised low Na diet and weight reduction I advised to recheck her BP at home and do a log, f/u with PCP and nephrology For now no changes in meds until confirmatory negative test Severe dental caries 08/04/2024 Chronic diarrhea 07/17/2024 [...] Encounters Date Type Department Care Team Description 11/03/2024 1:00 PM EDT Procedure Visit [facility] [address] [place] [phone] Julia Rosado CNM Missed period (Primary Dx); Routine cervical smear; Infertility counseling 11/03/2024 Travel 10/31/2024 Telephone [facility] [address] [place] [address] Cipriano Palacio MD US Pelvis and Transvaginal APPT 10/31/2024 Orders Only [facility] [address] [place] [address] Cipriano Palacio MD Missed period (Primary Dx) 10/29/2024 Telephone [facility] [address] [place] [address] Cipriano Palacio MD 10/22/2024 Telephone [facility] [address] [place] [address] Cipriano Palacio MD Call Back Request 10/17/2024 10:30 AM EDT Telemedicine [facility] [address] [place] [address] Cipriano Palacio MD Missed period (Primary Dx) 10/17/2024 Travel 10/16/2024 Telephone [facility] [address] [place] [phone] Cipriano Palacio MD No Show 10/16/2024 Telephone [facility] [address] [place] [address] Cipriano Palacio MD 10/16/2024 Telephone [facility] [address] [place] [phone] Cipriano Palacio MD R/s appointment 10/16/2024 Travel 10/15/2024 Travel 10/15/2024 Results Follow-Up [facility] [address] [place] [phone] Mary Watkins MD POCT Urine , hCG, Total, Quantitative 10/14/2024 1:40 PM EDT Office Visit [facility] [address] [place] [phone] Mary Watkins MD Elevated blood pressure reading (Primary Dx); Missed period 10/06/2024 Refill [facility] [address] [place], [place] [phone] Cipriano Palacio MD 09/11/2024 9:00 AM EDT Office Visit [facility] [address] [place] [address] Abdifatah Anne DDS Severe dental caries (Primary Dx) 08/13/2024 Telephone [facility] [address] [place] [phone] Cipriano Palacio MD Lab Orders (/) 08/04/2024 11:30 AM EDT Office Visit [facility] [address] [place] [phone] Abdifatah Anne DDS Dental caries (Primary Dx) from Last 3 Months Family History Medical [...] Health Questionnaire-2 Score 2 03/24/2024 Comments Unknown Intention Date Recorded Wants to become (finding) 11/03 Sex and Gender Information Value Date Recorded Sex Assigned at Female 03/24/2024 8:11 AM EST Legal Sex Female 3:15 PM EDT Gender Identity Female 03/24/2024 8:11 AM EST Sexual Orientation Straight 03/24/2024 8: 11 AM EST Last Filed Vital Signs Vital Sign Reading Time Taken Comments Blood Pressure 150/100 11/03/2024 1:26 PM EDT Pulse 93 11/03/2024 1:10 PM EDT Temperature 37.4 ??C (99.4 ??F) 11/03/2024 1:10 PM ED T Respiratory Rate 20 11/03/2024 1:10 PM EDT Oxygen Saturation 99% 11/03/2024 1:10 PM EDT Inhaled Oxygen Concentration - - Weight 66.3 kg (146 lb 3.2 oz) 11/03/2024 1:10 P M EDT Height 152.4 cm (5') 11/03/2024 1:10 PM EDT Body Mass Index 28.55 11/03/2024 1:10 PM EDT Plan of Treatment Upcoming Encounters Date Type Department Care Team (Late st Contact Info) Description 11/10/2024 11:00 AM EDT Clinical Support [address] [phone] Health Maintenance Due Date Last Done Comments Dental Oral Exam 1992 Dental Prophylaxis 1992 Dental X-Ray: Bitewings 1992 Dental X-Ray: Full Mouth 1992 HIV Screening 1992 SDOH Screening 1992 Disability Screening 1992 Alcohol/Substance Use Screening 2004 DTaP/Tdap/Td Vaccines (1 - Tdap) 01/24/2011 Hepatitis B Vaccines (1 of 3 - 19+ 3-dose series) 01/24/2011 Pap Smear 01/24/2013 Cervical Cancer Screening 01/24/2022 HPV/Cotest 01/24/2022 COVID-19 Vaccine ( - 2023-2 5 season) 2024 Influenza Vaccine (Season Ended) 2025 Depression Screening 03/24/2025 03/24/2024, 03/24/2024 Diabetes: Hemoglobin A1C 04/02/2025 04/02/2024 Family Planning (PISQ) 11/03/2025 11/03/2024 Tobacco Screening 11/03/2025 11/03/2024 Zoster Vaccines (1 of 2) 01/24/2042 RSV [...] Years) and At-Risk Patients (6 to 49) Years Aged Out No longer eligible b ased on patient's age to complete this topic RSV under 20 months Aged Out No longe r eligible based on patient's age to complete this topic Rotavirus Vaccines Aged Out No longer eligible based on patient's age to complete this topic Procedures Procedure Name Priority Date/Time Associated Diagnosis Comments HCG, TOTAL, QN Routine 10/14/2024 2:06 PM EDT Missed period POCT , URINE Routine 10/14/2024 1:47 PM [...] Recently Relevant to Health Maintenance Results * hCG, Total, Quantitative (10/14/2024 2:06 PM EDT) HCG Quantitative <2 mIU/mL [facility] Comment:Weeks post LMP Appro ximate hCG(Last Menstrual Period) Range (mIU/ml)3 - 4 weeks 9 - 1304 - 5 weeks 75 - 2,6005 - 6 weeks 850 - 20,8006 - 7 weeks 4000 - 100,2007 - 12 weeks 11,500 - 289,18445 - 16 weeks 18,300 - 137,65103 - 29 weeks (2nd trimester) 1,400 - 53,44647 - 41 weeks (3rd trimester) 940 - 60,000The Winston B- hCG assay is used for the early detection ofpregnancy; it cannot be used to diagnose any conditionunrelated to . If a B-hCG level is not supportedby the clinical evidence, results should be confirmed by analternative method (qualitative urine hCG, for example). Blood Venous blood specimen / Unknown 10/14/2024 2:06 PM EDT 10/14/2024 3:55 PM EDT Mary High MD LAB BLOOD ORDERABLES Final Result [facility] [address] [place] [phone] * POCT Urine (10/14/2024 1:47 PM EDT) Preg Test, Ur Negative Negative, Indeterminate, None Detected, Invalid, Specimen unsatisfactory for evaluation, Weakly Positive, 2+ QC Media Lot # [id number] Lot# Expiration Date ,026 QC TEST ,026 Urine 10/14/2024 1:47 PM EDT Mary High MD POINT OF CARE TEST EN TER/EDIT ORDERABLES Final Result * Creatinine, Serum (09/12/2024 9:02 AM EDT) Creatinine, Serum 1.02 0.5 - 1.4 mg/dL [facility] Estimated Glomerular Filt Rate >60 [facility] Comment:Chronic Kidney Disea se: Estimated GFR < 60 mL/min/1.81c3Sxqcew Kidney Disease: Estimated GFR < 15 mL/min/1.73m2 09/12/2024 9:02 AM EDT 09/12/2024 9:02 AM EDT Generic External Data Provider LAB BLOOD ORDERAB LES Final Result Performing Organization Address [facility] de Phone Number [facility] [address] [place] [phone] * BUN (Blood Urea Nitrogen) (09/12/2024 9:02 AM EDT) Urea Nitrogen (BUN) 15 9 - 16 mg/dL [facility] 09/12/2024 9:02 AM EDT 09/12/2024 9:02 AM EDT Generic External Data Provider LAB BLOOD ORDERAB LES Final Result Performing Organization Address [facility] Phone Number [facility] [address] [place] [phone] * Electrolyte Panel (09/12/2024 9:02 AM EDT) Sodium 140 135 - 145 mmol/L [facility] Potassium 4.3 3.3 - 5.1 mmol/L [facility] Chloride 107 96 - 108 mmol/L [facility] Carbon Dioxide 25 22 - 29 mmol/L [facility] Anion Gap 12 12 - 20 [facility] 09/12/2024 9:02 AM EDT 09/12/2024 9:02 AM EDT Generic External Data Provider LAB BLOOD ORDERAB LES Final Result Performing Organization Address [facility] de Phone Number [facility] [address] [place] [address] [phone] * (ABNORMAL) Protein Creatinine Ratio, Urine (09/12/2024 9:00 AM EDT) Creatinine, Urine 121.02 mg/dL [facility] Protein, Total, Random Urine 367(H) <12 mg/dL [facility] Protein/Creati nine Ratio, Ur 3.03(H) <0.2 [facility] Comment:The spot urine prote in:creatinine ratio may increase to 0.3during normal . 09/12/2024 9:00 AM EDT 09/12/2024 10:10 AM EDT us Generic External Data Provider LAB URINE ORDERAB LES Final Result Performing Organization Address [facility] Co de Phone Number [facility] [address] [place] [phone] * Celiac Disease Diagnostic Panel (08/18/2024 3:10 PM EDT) Tissue Transglutaminase Antibody IgG <1.0 U/mL [facility] Comment:Value Interpretation ----- <15.0 Antibody not detected> or = 15.0 Antibody detected Gliadin (Deamidated) Ab (IgA) <1.0 U/mL [facility] Comment:Value Interpretation ----- <15.0 Antibody not detected> or = 15.0 Antibody detected Gliadin (Deaminated) Antibody IgG <1.0 U/mL [facility] Comment:Value Interpretation ----- <15.0 Antibody not detected> or = 15.0 Antibody detected Blood Venous blood specimen / Unknown 08/18/2024 3:10 PM EDT 08/18/2024 3:10 PM EDT us Cipriano Pickens MD LAB BLOOD ORDERABL ES Final Result Performing Organization Address [facility] Co de Phone Number [facility] [address] [place] [address] [phone] * Celiac Disease Comprehensive Panel (08/18/2024 3:10 PM EDT) Immunoglobulin A 99 47 - 310 mg/dL [facility] Comment:THIS TEST WAS PERFOR MED AT:[employer] [id number] [place] [address]GJNIOJERRI WATERS MD Transglutaminase IgA <1.0 U/mL [facility] Comment:Value Interpretation ----- <15.0 Antibody not detected> or = 15.0 Antibody detected Interpretation SEE NOTE [facility] Comment:No serological evide nce of celiac disease.tTG IgA may normalize in individuals with celiac diseasewho maintain a gluten-free diet. Consider HLA DQ2 andDQ8 testing to rule out celiac disease. Celiac diseaseis extremely rare in the absence of DQ2 or DQ8.THIS TEST WAS PERFORMED AT:[facility] [place] [address]TQZPNJERRI WATERS MD Blood Venous blood specimen / Unknown 08/18/2024 3:10 PM EDT 08/18/2024 3:10 PM EDT Cipriano Pickens MD LAB BLOOD ORDERABL ES Final Result [facility] [address] [place] [phone] * Calprotectin, Stool (08/18/2024 7:09 AM EDT) Calprotectin,Fecal 56 mcg/g [facility] Comment:Reference Range: <50 Normal 50-120 Borderline >120 ElevatedCalprotectin in Crohn's disease and ulcerative colitis canbe five to several thousand times above the referencepopulation (50 mcg/g or less). Levels are usually 50 mcg/gor less in healthy patients and with irritable bowelsyndrome. Repeat testing in 4-6 weeks is suggested forborderline values.THIS TEST WAS PERFORMED AT:[id number] [place] [address]VIGVZAMANDA CROWDER MD,PHD,SHANE Stool 08/18/2024 7:09 AM EDT 08/18/2024 3:41 PM EDT Cipriano Pickens MD LAB BODY FLUIDS AN D STOOLS ORDERABLES Final Result Performing Organization Address [facility] de Phone Number [facility] [address] [place] [phone] * Lactoferrin, Quantitative, Stool (08/18/2024 7:09 AM EDT) Lactoferrin, Qn, Stool <6.25 <7.25 mcg/mL [facility] Comment:The following patien t samples should be excluded from use inthe test: patients with a history of HIV and/or havehepatitis B or C, patients with a history of infectiousdiarrhea (within 6 months), and patients having had acolostomy and or ileostomy within 1 month.THIS TEST WAS PERFORMED AT:[id number] [facility] [place] [address]AQCEXAMANDA CROWDER MD,PHD,SHANE Stool Rectal contents / Unknown 08/18/2024 7:09 AM EDT 08/18/2024 3:41 PM EDT Cipriano Pickens MD LAB BODY FLUIDS AN D STOOLS ORDERABLES Final Result Performing Organization Address [facility] de Phone Number [facility] [address] [place] [phone] * Ova and Parasites (08/18/2024 7:09 AM EDT) Ova and Parasite Trichrome SEE NOTE [facility] Comment: ??OVA AND PARASITES, CONC AND PERM SMEAR ??Micro Number: ?[id number] ??Test Status: ? Final ??Specimen Source: ?? [...] For additional information, please refer to ? https://education.Tyto/faq/ONA434 ? (This link is being provided for informational/ ? educational purposes only.)THIS TEST WAS PERFORMED AT:[employer] [facility] [address] [place], [place] ??[phone] JUDSON,MD Stool Rectal contents / Unknown 08/18/2024 7:09 AM EDT 08/18/2024 3:41 PM EDT us Cipriano Pickens MD LAB MICROBIOLOGY - GENERAL ORDERABLES Final Result [facility] [address] [place] [phone] * Giardia Antigen, EIA, Stool (08/18/2024 7:09 AM EDT) Giardia Ag Stool EIA SEE NOTE [facility] Comment:GIARDIA AG, EIA, STO OL Micro Number: [id number] Test Status: Final Specimen Source: Stool Specimen Quality: Adequate Giardia Result 1: Not Detected Reference Range: Not Detected NOTE: Due to intermittent shedding, one negative sample does not necessarily rule out the presence of a parasitic infection.THIS TEST WAS PERFORMED AT:[facility] [place] [phone] WATERS MD Stool Rectal contents / Unknown 08/18/2024 7:09 AM EDT 08/18/2024 3:41 PM EDT Cipriano Pickens MD LAB BODY FLUIDS AN D STOOLS ORDERABLES Final Result Performing Organization Address [facility] Co de Phone Number [facility] [address] [place] [phone] * Hepatitis C Antibody with Reflex to HCV, RNA, Quantitative, Real-Time PCR (04/30/2024 9:42 AM EST) Pathologist [facility] Hepatitis C Antibody Nonreactive Nonreactive [facility] Comment:Antibodies to HCV no t detected; does not exclude early acuteHCV infection. 04/30/2024 9:42 AM EST 04/30/2024 9:42 AM EST [employer] External Data Provider LAB BLOOD ORDERAB LES Final Result Performing Organization Address [facility] Co de Phone Number [facility] [address] [place] [phone] * POCT HGB A1C (04/02/2024 10:00 AM EST) Hemoglobin A1C 5.9 4.0 - 6.0 % QC Media Lot # [id number] Lot# Expiration Date Blood 04/02/2024 10:0 0 AM EST Cipriano Pickens MD POINT OF CARE TEST ENTER/EDIT ORDERABLES Final Result from Last 3 Months or Most Recently Relevant to Health Maintenance Insurance [facility] C3 [facility] STANDARD DENTAL-[facility] MEDICAID STAND ADULT Care Teams [employer] Relationship Specialty Start Date End Date Cipriano Palacio MD [address] [place] [phone] PCP - General Internal Medicine 03/24/24
[2024-11-03 17:02] LABS: HCG Quantitative < 2 mIU/mL; TSH reflex Free T4 0.42 uIU/mL (0.32-4.0)
[2024-11-04 04:34] LABS: Prolactin 16.7 ng/mL
== END 2024-11-03 13:31 | disposition home or self-care (01) ==
LOC: HO.HHCL 13:30
PROVIDERS: Visit Provider Advanced Practice Midwife
DX: N92.6 Irregular menstruation, unspecified (principal)
CPT/HCPCS: 36415; 84146; 84443; 84702

== ENCOUNTER 2024-11-03 17:15 | Outpatient (REF) | payer MEDICAID, SELFPAY ==
[2024-11-06 12:43] LABS: HPV Genotype 16 Negative (Negative); HPV Genotype 18 Negative (Negative); HPV High Risk Negative (Negative)
== END 2024-11-03 17:16 | disposition home or self-care (01) ==
LOC: HO.HHCLNP 17:15
PROVIDERS: Visit Provider Advanced Practice Midwife
DX: Z12.4 Encounter for screening for malignant neoplasm of cervix (principal)
CPT/HCPCS: 87626; 88175

== ENCOUNTER 2024-11-05 12:23 | Outpatient (REF) | payer MEDICAID, SELFPAY ==
--- NOTE | ~2024-11-05 | US_ITS ---
CLINICAL HISTORY: amenorhea Ultrasound of the female pelvis Comparison: None Technique: Grayscale ultrasound with assistance of color Doppler. Transabdominal scanning performed for overall anatomy. Transvaginal scanning performed for better anatomic delineation. Findings: Anteverted uterus measures 7.6 x 3.4 x 4.7 cm. Homogeneous myometrium, no fibroid is seen. Punctate hyperechoic focus likely calcification posteriorly abutting the endometrium. Normal endometrium, 6 mm in thickness. Normal cervix. Normal right ovary, 2.5 x 2.2 x 1.8 cm. No abnormal vascular flow. Normal left ovary, 3.2 x 1.8 x 1.4 cm. No abnormal vascular flow. No free fluid. Impression: Normal exam. No sonographic finding to account for amenorrhea. This document has been electronically signed by: Ro Cruz MD on 11/05/2024 15:55:11
--- OUTSIDE RECORDS SUMMARY | 2024-11-05 14:14 | XMS_ITS | Clinical Summary ---
Author Organization [employer] Address [address] [place] [address] Care Team Providers Care Websphere Consultant Name Role Phone Cipriano Palacio MD Primary [...] (03/24/2024 2:49 PM EST): Patient moved from [place], she had kidney biopsy, is on kerendia 10mg and lisinopril 2.5mg, will refer to nephrology Infertility counseling 03/24/2024 Assessment & Plan (03/24/2024 2:51 PM EST): Patient underwent tubal ligation 10 years ago, she is interested in getting , will refer to fertility clinic to review options Encounters Date Type Department Care Team Description 11/05/2024 Results Follow-Up [facility] [address] [place] [phone] Julia Rosado CNM TSH W/Reflex to FT4, Prolactin, hCG, Total, Quantitative 11/03/2024 1:00 PM EDT Procedure Visit [facility] [address] [place] [address] Julia Rosado CNM Missed period (Primary Dx); Routine cervical smear; Infertility counseling 11/03/2024 Travel 10/31/2024 Telephone [facility] [address] [place] [address] Cipriano Palacio MD US Pelvis and Transvaginal APPT 10/31/2024 Orders Only [facility] [address] [place] [address] Cipriano Palacio MD Missed period (Primary Dx) 10/29/2024 Telephone [facility] [address] [place] [address] Cipriano Palacio MD 10/22/2024 Telephone [facility] [address] [place] [address] Cipriano Palacio MD Call Back Request 10/17/2024 10:30 AM EDT Telemedicine [facility] [address] [place] [address] Cipriano Palacio MD Missed period (Primary Dx) 10/17/2024 Travel 10/16/2024 Telephone [facility] [address] [place] [phone] Cipriano Palacio MD No Show 10/16/2024 Telephone [facility] [address] [place] [address] Cipriano Palacio MD 10/16/2024 Telephone [facility] [address] [place] [address] Cipriano Palacio MD R/s appointment 10/16/2024 Travel 10/15/2024 Travel 10/15/2024 Results Follow-Up [address] [address] Mary Watkins MD POCT Urine , hCG, Total, Quantitative 10/14/2024 1:40 PM EDT Office Visit [facility] [address] [place] [phone] Mary Watkins MD Elevated blood pressure reading (Primary Dx); Missed period 10/06/2024 Refill [facility] [address] [place], [place] [phone] Cipriano Palacio MD 09/11/2024 9:00 AM EDT Office Visit [facility] [address] [place] [phone] Abdifatah Anne DDS Severe dental caries (Primary Dx) 08/13/2024 Telephone [facility] [address] [place] [phone] Cipriano Palacio MD Lab Orders (/) from Last 3 Months Family History Medical [...] 93 11/03/2024 1:10 PM EDT Temperature 37.4 C (99.4 F) 11/03/2024 1:10 PM EDT Respiratory Rate 20 11/03/2024 1:10 PM EDT [...] Description 11/10/2024 11:00 AM EDT Clinical Support [address] [address] Health Maintenance Due Date Last Done Comments [...] Associated Diagnosis Comments HCG, TOTAL, QN Routine 11/03/2024 1:31 PM EDT Missed period PROLACTIN Routine 11/03/2024 1:31 PM EDT Missed period TSH W/REFLEX TO FT4 Routine 11/03/2024 1 :31 PM EDT Missed period HCG, TOTAL, QN Routine 10/14/2024 2:06 PM [...] Routine 08/18/2024 7:09 AM EDT Chronic diarrhea HEPATITIS C AB W/REFL TO HCV RNA, QN, PCR Routine 04/30/2024 9:42 AM EST POCT GLYCATED HEMOGLOBIN, TOTAL Routine 04/02/2024 10:00 AM EST Prediabetes from Last 3 Months or Most Recently Relevant to Health Maintenance Results * TSH W/Reflex to FT4 (11/03/2024 1:31 PM EDT) TSH reflex Free T4 0.42 0.32 - 4.0 uIU/mL [facility] Blood Venous blood specimen / Unknown 11/03/2024 1:31 PM EDT 11/03/2024 4:02 PM EDT [facility] BLOOD ORDERABLES Maria T l Result Performing Organization Address [facility] Co de Phone Number [facility] [address] [place] [phone] * Prolactin (11/03/2024 1:31 PM EDT) Prolactin 16.7 ng/mL [facility] Comment:Reference Range Fema les Non- 3.0-30.0 10.0-209.0 Postmenopausal 2.0-20.0THIS TEST WAS PERFORMED AT:[facility] [place] [id number] WATERS MD Blood Venous blood specimen / Unknown 11/03/2024 1:31 PM EDT 11/03/2024 4:02 PM EDT [facility] LAB BLOOD ORDERABLES Maria T l Result Performing Organization Address [facility] de Phone Number [facility] [address] [place] [phone] * hCG, Total, Quantitative (11/03/2024 1:31 PM EDT) Only the most recent of2 resultswithin the time period is included. HCG Quantitative <2 mIU/mL [facility] Comment:Weeks post LMP Appro ximate hCG(Last Menstrual Period) Range (mIU/ml)3 - 4 weeks 9 - 1304 - 5 weeks 75 - 2,6005 - 6 weeks 850 - 20,8006 - 7 weeks 4000 - 100,2007 - 12 weeks 11,500 - 289,13282 - 16 weeks 18,300 - 137,91699 - 29 weeks (2nd trimester) 1,400 - 53,09714 - 41 weeks (3rd trimester) 940 - 60,000The Winston B- hCG assay is used for the early detection ofpregnancy; it cannot be used to diagnose any conditionunrelated to . If a B-hCG level is not supportedby the clinical evidence, results should be confirmed by analternative method (qualitative urine hCG, for example). Blood Venous blood specimen / Unknown 11/03/2024 1:31 PM EDT 11/03/2024 4:02 PM EDT Julia Rosado [facility] LAB BLOOD ORDERABLES Maria T l Result Performing Organization Address City/[facility]/ZIP Co de Phone Number [facility] [address] [place] [phone] * POCT Urine (10/14/2024 1:47 PM [...] Creatinine, Serum 1.02 0.5 - 1.4 mg/dL [facility] Estimated Glomerular Filt Rate >60 [facility] Comment:Chronic Kidney Disea se: Estimated GFR < 60 mL/min/1.33o0Dhenbg Kidney Disease: Estimated GFR < 15 mL/min/1.73m2 09/12/2024 9:02 AM EDT 09/12/2024 9:02 AM EDT Generic External Data Provider LAB BLOOD ORDERAB LES Final Result Performing Organization Address [facility]/ZIP Co de Phone Number [facility] [address] [place] [phone] * BUN (Blood Urea Nitrogen) (09/12/2024 9:02 AM EDT) Urea Nitrogen (BUN) 15 9 - 16 mg/dL [facility] 09/12/2024 9:02 AM EDT 09/12/2024 9:02 AM EDT Generic External Data Provider LAB BLOOD ORDERAB LES Final Result Performing Organization Address [facility] Co de Phone Number [facility] [address] [place] [phone] * Electrolyte Panel (09/12/2024 9:02 AM EDT) Sodium 140 135 - 145 mmol/L [facility] Potassium 4.3 3.3 - 5.1 mmol/L [facility] Chloride 107 96 - 108 mmol/L [facility] Carbon Dioxide 25 22 - 29 mmol/L [facility] Anion Gap 12 12 - 20 [facility] 09/12/2024 9:02 AM EDT 09/12/2024 9:02 AM EDT Generic External Data Provider LAB BLOOD ORDERAB LES Final Result Performing Organization Address [facility] de Phone Number [facility] [address] [place] [phone] * (ABNORMAL) Protein Creatinine Ratio, Urine (09/12/2024 9:00 AM EDT) Creatinine, Urine 121.02 mg/dL [facility] Protein, Total, Random Urine 367(H) <12 mg/dL [facility] Protein/Creati nine Ratio, Ur 3.03(H) <0.2 [facility] Comment:The spot urine prote in:creatinine ratio may increase to 0.3during normal . 09/12/2024 9:00 AM EDT 09/12/2024 10:10 AM EDT us Generic External Data Provider LAB URINE ORDERAB LES Final Result Performing Organization Address [facility] de Phone Number [facility] [address] [place] [phone] * Celiac Disease Diagnostic Panel (08/18/2024 3:10 PM EDT) [facility] Tissue Transglutaminase Antibody IgG <1.0 U/mL [facility] Comment:Value Interpretation ----- <15.0 Antibody not detected> or = 15.0 Antibody detected Gliadin (Deamidated) Ab (IgA) <1.0 U/mL [facility] Comment:Value Interpretation ----- <15.0 Antibody not detected> or = 15.0 Antibody detected Gliadin (Deaminated) Antibody IgG <1.0 U/mL [facility] Comment:Value Interpretation ----- <15.0 Antibody not detected> or = 15.0 Antibody detected Blood Venous blood specimen / Unknown 08/18/2024 3:10 PM EDT 08/18/2024 3:10 PM EDT us Cipriano Pickens MD LAB BLOOD ORDERABL ES Final Result Performing Organization Address [facility] de Phone Number [facility] [address] [place] [phone] * Celiac Disease Comprehensive Panel (08/18/2024 3:10 PM EDT) Pathologist [facility] Immunoglobulin A 99 47 - 310 mg/dL [facility] Comment:THIS TEST WAS PERFOR MED AT:[facility] [place] [id number] WATERS MD Transglutaminase IgA <1.0 U/mL [facility] Comment:Value Interpretation ----- <15.0 Antibody not detected> or = 15.0 Antibody detected Interpretation SEE NOTE [facility] Comment:No serological evide nce of celiac disease.tTG IgA may normalize in individuals with celiac diseasewho maintain a gluten-free diet. Consider HLA DQ2 andDQ8 testing to rule out celiac disease. Celiac diseaseis extremely rare in the absence of DQ2 or DQ8.THIS TEST WAS PERFORMED AT:[facility] [place] [id number] WATERS MD Blood Venous blood specimen / Unknown 08/18/2024 3:10 PM EDT 08/18/2024 3:10 PM EDT Cipriano Pickens MD LAB BLOOD ORDERABL ES Final Result Performing Organization Address [facility] Co de Phone Number [facility] [address] [place] [phone] * Calprotectin, Stool (08/18/2024 7:09 AM EDT) Calprotectin,Fecal 56 mcg/g [facility] Comment:Reference Range: <50 Normal 50-120 Borderline >120 ElevatedCalprotectin in Crohn's disease and ulcerative colitis canbe five to several thousand times above the referencepopulation (50 mcg/g or less). Levels are usually 50 mcg/gor less in healthy patients and with irritable bowelsyndrome. Repeat testing in 4-6 weeks is suggested forborderline values.THIS TEST WAS PERFORMED AT:[facility] [id number] [place] [id number] CROWDER MD,PHD,SHANE Stool 08/18/2024 7:09 AM EDT 08/18/2024 3:41 PM EDT Cipriano Pickens MD LAB BODY FLUIDS AN D STOOLS ORDERABLES Final Result Performing Organization Address [facility]/ZIP Co de Phone Number [facility] [address] [place] [phone] * Lactoferrin, Quantitative, Stool (08/18/2024 7:09 AM EDT) Lactoferrin, Qn, Stool <6.25 <7.25 mcg/mL [facility] Comment:The following patien t samples should be excluded from use inthe test: patients with a history of HIV and/or havehepatitis B or C, patients with a history of infectiousdiarrhea (within 6 months), and patients having had acolostomy and or ileostomy within 1 month.THIS TEST WAS PERFORMED AT:[facility] [id number] [place] [id number] CROWDER MD,PHD,SHANE Stool Rectal contents / Unknown 08/18/2024 7:09 AM EDT 08/18/2024 3:41 PM EDT Cipriano Pickens MD LAB BODY FLUIDS AN D STOOLS ORDERABLES Final Result [facility] [address] [place] [phone] * Ova and Parasites (08/18/2024 7:09 AM EDT) Ova and Parasite Trichrome SEE NOTE [facility] Comment: OVA AND PARASITES, CONC AND PERM SMEAR Micro Number: [id number] Test Status: Final Specimen Source: Stool Specimen Quality: Adequate CONCENTRATION 1: No ova or parasites seen TRICHROME 1: No ova or parasites seen Routine Ova and Parasite exam may not detect some parasites that occasionally cause diarrheal illness. Cryptosporidium Antigen and/or Cyclospora and Isospora Exam may be ordered to detect these parasites. One negative sample does not necessarily rule out the presence of a parasitic infection. For additional information, please refer to https://education.[employer]/faq/HKR910 (This link is being provided for informational/ educational purposes only.)THIS TEST WAS PERFORMED AT:[facility] [address] [place] [address]MUYJ JUDSON,MD Stool Rectal contents / Unknown 08/18/2024 7:09 AM EDT 08/18/2024 3:41 PM EDT Cipriano Pickens MD LAB MICROBIOLOGY - GENERAL ORDERABLES Final Result Performing Organization Address [facility] de Phone Number [facility] [address] [place] [phone] * Giardia Antigen, EIA, Stool (08/18/2024 7:09 AM EDT) Giardia Ag Stool EIA SEE NOTE [facility] Comment:GIARDIA AG, EIA, STO OL Micro Number: [id number] Test Status: Final Specimen Source: Stool Specimen Quality: Adequate Giardia Result 1: Not Detected Reference Range: Not Detected NOTE: Due to intermittent shedding, one negative sample does not necessarily rule out the presence of a parasitic infection.THIS TEST WAS PERFORMED AT:[facility] [place] [id number] WATERS MD Stool Rectal contents / Unknown 08/18/2024 7:09 AM EDT 08/18/2024 3:41 PM EDT Cipriano Pickens MD LAB BODY FLUIDS AN D STOOLS ORDERABLES Final Result Performing Organization Address [facility] de Phone Number [facility] [address] [place] [phone] * Hepatitis C Antibody with Reflex to HCV, RNA, Quantitative, Real-Time PCR (04/30/2024 9:42 AM EST) Hepatitis C Antibody Nonreactive Nonreactive [facility] Comment:Antibodies to HCV no t detected; does not exclude early acuteHCV infection. 04/30/2024 9:42 AM EST 04/30/2024 9:42 AM EST us Generic External Data Provider LAB BLOOD ORDERAB LES Final Result [facility] [address] [place] [phone] [phone] * POCT HGB A1C (04/02/2024 10:00 AM EST) Hemoglobin A1C 5.9 4.0 - 6.0 % QC Media Lot # [id number] Lot# Expiration Date [id number] Blood 04/02/2024 10:0 0 AM EST Cipriano Pickens MD POINT OF CARE TEST ENTER/EDIT ORDERABLES Final Result from Last 3 Months or Most Recently Relevant to Health Maintenance [place] [address] [place] [address] [employer] [facility] MEDICAID STAND ADULT Care Teams Websphere Consultant Relationship Specialty Start Date End Date Cipriano Palacio MD [address] [place] [phone] PCP - General Internal Medicine 03/24/24
== END 2024-11-05 12:24 | disposition home or self-care (01) ==
LOC: HO.US 12:23
PROVIDERS: PCP Internal Medicine; Visit Provider Internal Medicine
DX: N92.6 Irregular menstruation, unspecified (principal)
CPT/HCPCS: 76830; 76856

== ENCOUNTER → 2024-11-05 12:25 | Outpatient (BNV) | payer MEDICAID, SELFPAY | PROVIDERS: PCP Internal Medicine; Visit Provider Radiology Diagnostic Radiology | DX: N91.2 Amenorrhea, unspecified (principal) | CPT/HCPCS: 76830; 76856 ==

== ENCOUNTER 2024-12-08 09:36 | Outpatient (REF) | payer MEDICAID, SELFPAY ==
--- OUTSIDE RECORDS SUMMARY | 2024-12-08 10:12 | XMS_ITS | Clinical Summary ---
Author Organization [employer] Address [address] [address] [facility] [address] [place] [address] Care Team Providers Care Tube Wrapper Name Role Phone Cipriano Palacio MD Primary [...] (03/24/2024 2:49 PM EST): Patient moved from [place], she had kidney biopsy, is on kerendia 10mg and lisinopril 2.5mg, will refer to nephrology Infertility counseling 03/24/2024 Assessment & Plan (03/24/2024 2:51 PM EST): Patient underwent tubal ligation 10 years ago, she is interested in getting , will refer to fertility clinic to review options Encounters Date Type Department Care Team Description 11/10/2024 11:00 AM EDT Clinical Support [address] [address] Tyra Chao RN Elevated blood pressure reading 11/10/[address] [address] Cipriano Palacio MD Call Back Request (/) 11/10/2024 Travel 11/06/2024 Results Follow-Up [facility] [address] [place], [place] [phone] Cipriano Palacio MD US Pelvis Transvaginal 11/05/2024 Results Follow-Up [address] [address] Yariel Duvall CNM TSH W/Reflex to FT4, Prolactin, hCG, Total, Quantitative, Pap Smear 11/03/2024 1:00 PM EDT Procedure Visit [address] [address] Yariel Duvall CNM Missed period (Primary Dx); Routine cervical smear; Infertility counseling 11/03/2024 Orders Only [address] [phone] Yariel Duvall CNM 11/03/2024 Travel 10/31/2024 Telephone [facility] [address] [place], [place] [phone] Cipriano Palacio MD US Pelvis and Transvaginal APPT 10/31/2024 Orders Only [facility] [address] [place] [address] Cipriano Palacio MD Missed period (Primary Dx) 10/29/2024 Telephone [facility] [address] [place] [address] Cipriano Palacio MD 10/22/2024 Telephone [facility] [address] [place] [address] Cipriano Palacio MD Call Back Request 10/17/2024 10:30 AM EDT Telemedicine [facility] [address] [place] [address] Cipriano Palacio MD Missed period (Primary Dx) 10/17/2024 Travel 10/16/2024 Telephone [facility] [address] [place] [phone] Cipriano Palacio MD No Show 10/16/2024 Telephone [facility] [address] [place] [phone] Cipriano Palacio MD 10/16/2024 Telephone [facility] [address] [place] [phone] Cipriano Palacio MD R/s appointment 10/16/2024 Travel 10/15/2024 Travel 10/15/2024 Results Follow-Up [facility] [address] [place] [phone] Mary Watkins MD POCT Urine , hCG, Total, Quantitative 10/14/2024 1:40 PM EDT Office Visit [facility] [address] [place] [phone] Mary Watkins MD Elevated blood pressure reading (Primary Dx); Missed period 10/06/2024 Refill [facility] [address] [place] [address] Cipriano Palacio MD 09/11/2024 9:00 AM EDT Office Visit [facility] [address] [place] [phone] Abdifatah Anne DDS Severe dental caries (Primary Dx) from Last 3 Months [...] Sign Reading Time Taken Comments Blood Pressure 127/88 11/10/2024 11:00 AM EDT Pulse 86 11/10/2024 11:00 AM EDT Temperature 37.4 C (99.4 F) 11/03/2024 1:10 PM EDT Respiratory Rate 18 11/10/2024 11:00 AM EDT Oxygen Saturation 97% 11/10/2024 11:00 AM EDT Inhaled Oxygen Concentration - - Weight 66.3 kg (146 lb 3.2 oz) 11/03/2024 1:10 P M EDT Height 152.4 cm (5') 11/03/2024 1:10 PM EDT Body Mass Index 28.55 11/03/2024 1:10 PM EDT Plan of Treatment Upcoming Encounters Date Type Department Care Team ([facility] st Contact Info) Description 02/09/2025 8:30 AM EDT Office Visit [facility] [address] [place] [address] Cipriano Palacio MD [address] [place] [phone] Health Maintenance Due Date Last Done Comments Dental Oral Exam 1992 Dental Prophylaxis 1992 Dental X-Ray: Bitewings 1992 Dental X-Ray: Full Mouth 1992 HIV Screening 1992 SDOH Screening 1992 Disability Screening 1992 Alcohol/Substance Use Screening 2004 HPV Vaccines (1 - 3-dose series) 01/24/2007 DTaP/Tdap/Td Vaccines (1 - Tdap) 01/24/2011 Hepatitis B Vaccines (1 of 3 - 19+ 3-dose series) 01/24/2011 COVID-19 Vaccine ( - 2023-2 5 season) 2024 Influenza Vaccine (#1) 2025 Depression Screening 03/24/2025 03/24/2024, 03/24/2024 Diabetes: Hemoglobin A1C 04/02/2025 04/02/2024 Family Planning (PISQ) 11/03/2025 11/03/2024 Tobacco Screening 11/03/2025 11/03/2024 Cervical Cancer Screening 11/03/2029 HPV/Cotest 11/03/2029 11/03/2024 Pap Smear 11/03/2029 11/03/2024 Zoster Vaccines (1 of 2) 01/24/2042 [...] Procedure Name Priority Date/Time Associated Diagnosis Comments US PELVIS TRANSVAGINAL STAT 11/05/2024 3:55 PM EDT Missed period HCG, TOTAL, QN Routine 11/03/2024 1:31 PM EDT Missed period PROLACTIN Routine 11/03/2024 1:31 PM EDT Missed period TSH W/REFLEX TO FT4 Routine 11/03/2024 1 :31 PM EDT Missed period PAP SMEAR Routine 11/03/2024 1:26 PM EDT Routine cervical smear HPV DNA, LOW/HIGH RISK Routine 11/03/2024 1:26 PM EDT HCG, TOTAL, QN Routine 10/14/2024 2:06 PM EDT Missed period POCT , URINE Routine 10/14/2024 1:47 PM EDT Missed period CREATININE, SERUM Routine 09/12/2024 9: 02 AM EDT UREA NITROGEN (BUN) Routine 09/12/2024 9 :02 AM EDT ELECTROLYTE PANEL Routine 09/12/2024 9:0 2 AM EDT PROTEIN CREATININE RATIO, URINE Routine 09/12/2024 9:00 AM EDT CASE PRESENTATION, DETAILED AND EXTENSIVE TREATMENT PLANNING Routine 09/11/2024 9:00 AM EDT 2 DO RESIN-BASED COMPOSITE - 2 SURF, POSTERIOR Routine 09/11/2024 9:00 AM EDT HEPATITIS C AB W/REFL TO HCV RNA, QN, PCR Routine 04/30/2024 9:42 AM EST POCT GLYCATED HEMOGLOBIN, TOTAL Routine 04/02/2024 10:00 AM EST Prediabetes from Last 3 Months or Most Recently Relevant to Health Maintenance Results * US Pelvis Transvaginal (11/05/2024 3:55 PM EDT) Anatomical Region Laterality Modality Pelvis Ultrasound 11/05/2024 3:55 PM EDT Narrative 11/05/2024 3:56 PM EDT [place] [address] Ultrasound Report Signed Patient: Michele Preciado MR #: [id number] : 1990 Acct:[id number] Age/Sex: 34 / F ADM Date: 11/05/24 Loc: HO.US Attending Dr: Cipriano Pickens MD Ordering Physician: Cipriano Plaacio MD Date of Service: 11/05/24 Procedure(s): US pelvic and transvaginal Accession Number(s): [id number] cc: Cipriano Palacio MD CLINICAL HISTORY: amenorhea Ultrasound of the female pelvis Comparison: None Technique: Grayscale ultrasound with assistance of color Doppler. Transabdominal scanning performed for overall anatomy. Transvaginal scanning performed for better anatomic delineation. Findings: Anteverted uterus measures 7.6 x 3.4 x 4.7 cm. Homogeneous myometrium, no fibroid is seen. Punctate hyperechoic focus likely calcification posteriorly abutting the endometrium. Normal endometrium, 6 mm in thickness. Normal cervix. Normal right ovary, 2.5 x 2.2 x 1.8 cm. No abnormal vascular flow. Normal left ovary, 3.2 x 1.8 x 1.4 cm. No abnormal vascular flow. No free fluid. Impression: Normal exam. No sonographic finding to account for amenorrhea. This document has been electronically signed by: Ro Cruz MD on 11/05/2024 15:55:11 Dictated By: Ro Cruz MD Signed By: <Electronically signed by Ro Cruz MD in OV> 11/05/24 1555 DD/ TD/TT: 11/05/24 155 Automatic Fabric Cutter: Procedure Note Donotuseinterpreter, Image - 11/05/[address] [address] Ultrasound Report Signed Patient: Michele PreciadoMR #: [id number] : 1990Acct:[id number] Age/Sex: 34 / FADM Date: 11/05/24 Loc: HO.US Attending Dr: Cipriano Pickens MD Ordering Physician: Cipriano Palacio MD Date of Service: 11/05/24 Procedure(s): US pelvic and transvaginal Accession Number(s): [id number] cc: Cipriano Palacio MD CLINICAL HISTORY: amenorhea Ultrasound of the female pelvis Comparison: None Technique: Grayscale ultrasound with assistance of color Doppler. Transabdominal scanning performed for overall anatomy. Transvaginal scanning performed for better anatomic delineation. Findings: Anteverted uterus measures 7.6 x 3.4 x 4.7 cm. Homogeneous myometrium, no fibroid is seen. Punctate hyperechoic focus likely calcification posteriorly abutting the endometrium. Normal endometrium, 6 mm in thickness. Normal cervix. Normal right ovary, 2.5 x 2.2 x 1.8 cm. No abnormal vascular flow. Normal left ovary, 3.2 x 1.8 x 1.4 cm. No abnormal vascular flow. No free fluid. Impression: Normal exam. No sonographic finding to account for amenorrhea. This document has been electronically signed by: Ro Cruz MD on 11/05/2024 15:55:11 Dictated By: Ro Cruz MD Signed By: <Electronically signed by Ro Cruz MD in OV> 11/05/24 1555 DD/ 1555 TD/TT: 11/05/24 1555 Automatic Fabric Cutter: us Cipriano Pickens MD IMG US PROCEDURES Final Result * TSH W/Reflex to FT4 (11/03/2024 1:31 PM EDT) TSH reflex Free T4 0.42 0.32 - 4.0 uIU/mL [facility] Blood Venous blood specimen / Unknown 11/03/2024 1:31 PM EDT 11/03/2024 4:02 PM EDT [facility] BLOOD ORDERABLES Maria T l Result Performing Organization Address [facility] Co de Phone Number [facility] [address] [place] [phone] * Prolactin (11/03/2024 1:31 PM EDT) Pathologist [facility] Prolactin 16.7 ng/mL [facility] Comment:Reference Range Fema les Non- 3.0-30.0 10.0-209.0 Postmenopausal 2.0-20.0THIS TEST WAS PERFORMED AT:[employer] [place] [id number] WATERS MD Blood Venous blood specimen / Unknown 11/03/2024 1:31 PM EDT 11/03/2024 4:02 PM EDT [facility] LAB BLOOD ORDERABLES Maria T l Result Performing Organization Address [facility] de Phone Number [facility] [address] [place] [phone] * hCG, Total, Quantitative (11/03/2024 1:31 PM EDT) Only the most recent of2 resultswithin the time period is included. Pathologist [facility] HCG Quantitative <2 mIU/mL [facility] Comment:Weeks post LMP Appro ximate hCG(Last Menstrual Period) Range (mIU/ml)3 - 4 weeks 9 - 1304 - 5 weeks 75 - 2,6005 - 6 weeks 850 - 20,8006 - 7 weeks 4000 - 100,2007 - 12 weeks 11,500 - 289,90851 - 16 weeks 18,300 - 137,91436 - 29 weeks (2nd trimester) 1,400 - 53,64249 - 41 weeks (3rd trimester) 940 - [...] 1:31 PM EDT 11/03/2024 4:02 PM EDT Yariel Alonzo [facility] LAB BLOOD ORDERABLES Maria T l Result Performing Organization Address [facility]/ZIP Co de Phone Number [facility] [address] [place] [phone] * HPV DNA, Low/High Risk (11/03/2024 1:26 PM EDT) Pathologist [facility] HPV High Risk Negative Negative [facility] HPV Genotype 16 Negative Negative [facility] HPV Genotype 18 Negative Negative [facility] Comment:HPV testing performe d at [facility] (CLIA#[id number]), [address] [address].Testing for HPV was performed using the [employer] EULOGIO 6800system. The presence of HPV in the female genital tract isassociated with a number of diseases, including cervicalcarcinoma. The HPV DNA high risk pool tests for HPV 31, 33,35, 39, 45, 51, 52, 56, 58, 59, 66 and 68. The testing forHPV 16 and 18 genotypes has also been performed. A positiveresult indicates detection of nucleic acid sequences fromone or more subtypes, whereas a negative result indicatessuch sequences were not detected. 11/03/2024 1:26 PM EDT 11/04/2024 7:35 AM EDT Yariel Duvall [facility] BLOOD ORDERABLES Maria T l Result Performing Organization Address [facility] Co de Phone Number [facility] [address] [place] [phone] * Pap Smear (11/03/2024 1:26 PM EDT) Swab Cervix uteri structure / Unknown 11/03/2024 1:26 PM EDT 11/04/2024 7:35 AM EDT [facility] - 11/06/2024 8:18 AM EDT ----- ------- Name: Jay FernandoMichele sheldon Age/Sex: 34/F : 1990 Unit#: [id number] Attend Dr: YARIEL DUVALL CNM Re11/03/24 Status: [facility] Disch: ----- ------- SPEC : [id number] RECD: 11/04/2435 STATUS: CEDRICK RAMOS NUM: [id number] LEIDY: 11/03/24-[address] [facility] [address]: YARIEL DUVALL CNM ENTERED: 11/04/2444 SP TYPE: Pap Smr [facility] DR: ORDERED: Pap Smear Interpretation Satisfactory for evaluation. Negative for intraepithelial lesion or malignancy. Coccobacilli consistent with shift in vaginal lucien. HPV High Risk: Negative HPV Genotyping 16: Negative HPV Genotyping 18: Negative Clinical Information LMP: 11/01/2024 Previous PAP test: Unknown date/findings Other history: Routine cervical smear Material Received ThinPrep-Cervical PAP Disclaimer As of March 12, 2024, the technical services to include automated prescreening performed by the ThinPrep Imaging System, PAP screening and HPV testing will be performed at [facility] (CLIA #[id number]), [address] [place] [address]. Testing for HPV was performed using the [employer] EULOGIO 6800 system. The presence of HPV in the female genital tract is associated with a number of diseases, including cervical carcinoma. The HPV DNA high risk pool tests for HPV 31, 33, 35, 39, 45, 51, 52, 56, 58, 59, 66 and 68. The testing for HPV 16 and 18 genotypes has also been performed. A positive result indicates detection of nucleic acid sequences from one or more subtypes, whereas a negative result indicates such sequences were not detected. All professional services are performed by [facility] ([address] [place], [place] [id number]; ; CLIA #[id number]). The PAP Test is a screening procedure with the inherent possibility of both false negative and false positive results. Results should be interpreted in the context of historic and current clinical findings. Reliability of the PAP Test is enhanced by performing the test on a regular repetitive basis. CONTINUED ON NEXT PAGE ----- ------- Name: Jay TalaveraMichele suarez Age/Sex: 34/F : 1990 [id number]#: [id number] Attend Dr: YARIEL DUVALL Carolyn Re11/03/24 Status: DEP REF [facility] Disch: ----- ------- SPEC : [id number] RECD: 11/04/24 STATUS: CEDRICK RAMOS NUM: [id number] LEIDY: 11/03/24-[address] [facility] [address]: YARIEL DUVALL CNM ENTERED: 11/04/24 SP TYPE: Pap Smr [facility] DR: ORDERED: Pap Smear ----- ------- Signed (signature on file) BARRETT Bui (ASCP) 11/06/24 0818 ----- ------- END OF REPORT Yariel Duvall CNM LAB CYTOLOGY ORDERABLES F inal Result [facility] [address] [place] [phone] * POCT Urine (10/14/2024 1:47 PM EDT) Preg Test, Ur Negative Negative, Indeterminate, None Detected, Invalid, Specimen unsatisfactory for evaluation, Weakly Positive, 2+ QC Media Lot # [id number] Lot# Expiration Date ,026 QC TEST 312,026 Urine 10/14/2024 1:47 PM EDT Mary High MD POINT OF CARE TEST EN TER/EDIT ORDERABLES Final Result * Creatinine, Serum (09/12/2024 9:02 AM EDT) Creatinine, Serum 1.02 0.5 - 1.4 mg/dL [facility] Estimated Glomerular Filt Rate >60 [facility] Comment:Chronic Kidney Disea se: Estimated GFR < 60 mL/min/1.04o2Mjelvy Kidney Disease: Estimated GFR < 15 mL/min/1.73m2 09/12/2024 9:02 AM EDT 09/12/2024 9:02 AM EDT us Generic External Data Provider LAB BLOOD ORDERAB LES Final Result Performing Organization Address [facility]/ZIP Co de Phone Number [facility] [address] [place] [phone] * BUN (Blood Urea Nitrogen) (09/12/2024 9:02 AM EDT) Urea Nitrogen (BUN) 15 9 - 16 mg/dL [facility] 09/12/2024 9:02 AM EDT 09/12/2024 9:02 AM EDT us Generic External Data Provider LAB BLOOD ORDERAB LES Final Result Performing Organization Address City/[facility]/ZIP Co de Phone Number [facility] [address] [place] [phone] * Electrolyte Panel (09/12/2024 9:02 AM EDT) Sodium 140 135 - 145 mmol/L [facility] Potassium 4.3 3.3 - 5.1 mmol/L [facility] Chloride 107 96 - 108 mmol/L [facility] Carbon Dioxide 25 22 - 29 mmol/L [facility] Anion Gap 12 12 - 20 [facility] 09/12/2024 9:02 AM EDT 09/12/2024 9:02 AM EDT Generic External Data Provider LAB BLOOD ORDERAB LES Final Result Performing Organization Address [facility] de Phone Number [facility] [address] [place] [phone] * (ABNORMAL) Protein Creatinine Ratio, Urine (09/12/2024 9:00 AM EDT) Pathologist [facility] Creatinine, Urine 121.02 mg/dL [facility] Protein, Total, Random Urine 367(H) <12 mg/dL [facility] Protein/Creati nine Ratio, Ur 3.03(H) <0.2 [facility] Comment:The spot urine prote in:creatinine ratio may increase to 0.3during normal . 09/12/2024 9:00 AM EDT 09/12/2024 10:10 AM EDT Generic External Data Provider LAB URINE ORDERAB LES Final Result Performing Organization Address [facility] de Phone Number [facility] [address] [place] [phone] * Hepatitis C Antibody with Reflex to HCV, RNA, Quantitative, Real-Time PCR (04/30/2024 9:42 AM EST) Pathologist [facility] Hepatitis C Antibody Nonreactive Nonreactive [facility] Comment:Antibodies to HCV no t detected; does not exclude early acuteHCV infection. 04/30/2024 9:42 AM EST 04/30/2024 9:42 AM EST Generic External Data Provider LAB BLOOD ORDERAB LES Final Result Performing Organization Address [facility] de Phone Number [facility] [address] [place] [phone] * POCT HGB A1C (04/02/2024 10:00 AM EST) Hemoglobin A1C 5.9 4.0 - 6.0 % QC Media Lot # [id number] Lot# Expiration Date [id number] Blood 04/02/2024 10:0 0 AM EST Cipriano Pickens MD POINT OF CARE TEST ENTER/EDIT ORDERABLES Final Result from Last 3 Months or Most Recently Relevant to Health Maintenance Insurance [facility] STANDARD DENTAL-[facility] MEDICAID STAND ADULT Care Teams Tube Wrapper Relationship Specialty Start Date End Date Cipriano Palacio MD [address] [place] [phone] PCP - General Internal Medicine 03/24/24
[2024-12-08 11:49] LABS: Anion Gap 9 (12-20); Blood Urea Nitrogen 12 mg/dL (9-16); Carbon Dioxide 23 mmol/L (22-29); Chloride 113 mmol/L (96-108); Estimated Glomerular Filt Rate > 60; Potassium 4.3 mmol/L (3.3-5.1); Sodium 141 mmol/L (135-145)
[2024-12-08 12:39] LABS: Protein/Creatinine Ratio, Ur 3.41 (<0.2); Total Protein Urine Random 246 mg/dL (<12)
== END 2024-12-08 09:37 | disposition home or self-care (01) ==
LOC: HO.HHCL 09:36
PROVIDERS: PCP Internal Medicine; Visit Provider Internal Medicine Nephrology
DX: N05.1 Unspecified nephritic syndrome with focal and segmental glomerular lesions (principal); R80.8 Other proteinuria
CPT/HCPCS: 36415; 80051; 82565; 82570; 84156; 84520

== ENCOUNTER 2024-12-12 09:43 | Outpatient (AMB) | payer MEDICAID, SELFPAY ==
--- OUTSIDE RECORDS SUMMARY | 2024-12-12 09:58 | XMS_ITS | Clinical Summary ---
Author Organization [employer] Address [address] [place] [address] Care Team Providers Care Geoscience Technician Name Role Phone Cipriano Palacio MD Primary [...] (03/24/2024 2:49 PM EST): Patient moved from [place], she had kidney biopsy, is on kerendia 10mg and lisinopril 2.5mg, will refer to nephrology Infertility counseling 03/24/2024 Assessment & Plan (03/24/2024 2:51 PM EST): Patient underwent tubal ligation 10 years ago, she is interested in getting , will refer to fertility clinic to review options Encounters Date Type Department Care Team Description 12/08/2024 Orders Only GENERIC EXTERNAL DATA DEPARTMENT Provider, Generic External Data 11/10/2024 11:00 AM EDT Clinical Support [address] [address] Tyra Chao RN Elevated blood pressure reading 11/10/[address] [address] Cipriano Palacio MD Call Back Request (/) 11/10/2024 Travel 11/06/2024 Results Follow-Up [facility] [address] [place] [address] Cipriano Palacio MD US Pelvis Transvaginal 11/05/2024 Results Follow-Up [address] [address] Yariel Duvall CNM TSH W/Reflex to FT4, Prolactin, hCG, Total, Quantitative, Pap Smear 11/03/2024 1:00 PM EDT Procedure Visit [address] [address] Yariel Duvall CNM Missed period (Primary Dx); Routine cervical smear; Infertility counseling 11/03/2024 Orders Only [address] [address] Yariel Duvall CNM 11/03/2024 Travel 10/31/2024 Telephone [facility] [address] [place], [place] [phone] Cipriano Palacio MD US Pelvis and Transvaginal APPT 10/31/2024 Orders Only [facility] [address] [place] [address] Cipriano Palacio MD Missed period (Primary Dx) 10/29/2024 Telephone [facility] [address] [place] [address] Cipriano Palacio MD 10/22/2024 Telephone [facility] [address] [place] [address] Cipriano Palacio MD Call Back Request 10/17/2024 10:30 AM EDT Telemedicine [facility] [address] [place] [address] Cipriano Palacio MD Missed period (Primary Dx) 10/17/2024 Travel 10/16/2024 Telephone [facility] [address] [place] [address] Cipriano Palacio MD No Show 10/16/2024 Telephone [facility] [address] [place] [address] Cipriano Palacio MD 10/16/2024 Telephone [facility] [address] [place] [phone] Cipriano Palacio MD R/s appointment 10/16/2024 Travel 10/15/2024 Travel 10/15/2024 Results Follow-Up [facility] [address] [place] [address] Mary Watkins MD POCT Urine , hCG, Total, Quantitative 10/14/2024 1:40 PM EDT Office Visit [facility] [address] [place] [phone] Mary Watkins MD Elevated blood pressure reading (Primary Dx); Missed period 10/06/2024 Refill [facility] [address] [place] [address] Cipriano Palacio MD from Last 3 Months Family History Medical [...] Care Team (Late st Contact Info) Description 02/09/2025 8:30 AM EDT Office Visit [facility] [address] [place] [address] Cipriano Palacio MD [address] [place] [address] Health Maintenance Due Date Last Done Comments Dental Oral Exam 1992 Dental Prophylaxis 1992 Dental X-Ray: Bitewings 1992 Dental X-Ray: Full Mouth 1992 HIV Screening 1992 SDOH Screening 1992 Disability Screening 1992 Alcohol/Substance Use Screening 2004 HPV Vaccines (1 - 3-dose series) 01/24/2007 DTaP/Tdap/Td Vaccines (1 - Tdap) 01/24/2011 Hepatitis B Vaccines (1 of 3 - 19+ 3-dose series) 01/24/2011 COVID-19 Vaccine (1 - 2023-2 5 season) [...] Diagnosis Comments PROTEIN CREATININE RATIO, URINE Routine 12/08/2024 9:41 AM EDT CREATININE, SERUM Routine 12/08/2024 9:4 1 AM EDT UREA NITROGEN (BUN) Routine 12/08/2024 9 :41 AM EDT ELECTROLYTE PANEL Routine 12/08/2024 9:4 1 AM EDT US PELVIS TRANSVAGINAL STAT 11/05/2024 3:55 PM [...] RATIO, URINE Routine 09/12/2024 9:00 AM EDT HEPATITIS C AB W/REFL TO HCV RNA, QN, PCR Routine 04/30/2024 9:42 AM EST POCT GLYCATED HEMOGLOBIN, TOTAL Routine 04/02/2024 10:00 AM EST Prediabetes from Last 3 Months or Most Recently Relevant to Health Maintenance Results * (ABNORMAL) Protein Creatinine Ratio, Urine (12/08/2024 9:41 AM EDT) Only the most recent of2 resultswithin the time period is included. Creatinine, Urine 72.17 mg/dL [facility] Protein, Total, Random Urine 246(H) <12 mg/dL [facility] Protein/Creati nine Ratio, Ur 3.41(H) <0.2 [facility] Comment:The spot urine prote in:creatinine ratio may increase to 0.3during normal . 12/08/2024 9:41 AM EDT 12/08/2024 11:14 AM EDT Generic External Data Provider LAB URINE ORDERAB LES Final Result Performing Organization Address [facility] Co de Phone Number [facility] [address] [place] [phone] * Creatinine, Serum (12/08/2024 9:41 AM EDT) Only the most recent of2 resultswithin the time period is included. Creatinine, Serum 0.86 0.5 - 1.4 mg/dL [facility] Estimated Glomerular Filt Rate >60 [facility] Comment:Chronic Kidney Disea se: Estimated GFR < 60 mL/min/1.27z7Oazeol Kidney Disease: Estimated GFR < 15 mL/min/1.73m2 12/08/2024 9:41 AM EDT 12/08/2024 11:10 AM EDT us Generic External Data Provider LAB BLOOD ORDERAB LES Final Result Performing Organization Address [facility] Co de Phone Number [facility] [address] [place] [phone] * BUN (Blood Urea Nitrogen) (12/08/2024 9:41 AM EDT) Only the most recent of2 resultswithin the time period is included. Urea Nitrogen (BUN) 12 9 - 16 mg/dL [facility] 12/08/2024 9:41 AM EDT 12/08/2024 11:10 AM EDT us Generic External Data Provider LAB BLOOD ORDERAB LES Final Result Performing Organization Address [facility] de Phone Number [facility] [address] [place] [phone] * (ABNORMAL) Electrolyte Panel (12/08/2024 9:41 AM EDT) Only the most recent of2 resultswithin the time period is included. Sodium 141 135 - 145 mmol/L [facility] Potassium 4.3 3.3 - 5.1 mmol/L [facility] Comment:Slight Hemolysis.Int erpret result with caution. Chloride 113(H) 96 - 108 mmol/L [facility] Carbon Dioxide 23 22 - 29 mmol/L [facility] Anion Gap 9(L) 12 - 20 [facility] 12/08/2024 9:41 AM EDT 12/08/2024 11:10 AM EDT us Generic External Data Provider LAB BLOOD ORDERAB LES Final Result Performing Organization Address [facility] Co de Phone Number [facility] [address] [place] [phone] * US Pelvis Transvaginal (11/05/2024 3:55 PM EDT) Anatomical Region Laterality Modality Pelvis Ultrasound 11/05/2024 3:55 PM EDT Narrative 11/05/2024 3:56 PM EDT [address] [address] Ultrasound Report Signed Patient: Michele Preciado MR #: [id number] : 1990 Acct:[id number] Age/Sex: 34 / F ADM Date: 11/05/24 Loc: HO.US Attending Dr: Cipriano Pickens MD Ordering Physician: Cipriano Palacio MD Date of Service: 11/05/24 Procedure(s): US pelvic and transvaginal Accession Number(s): [id number] cc: Cipriano Palacio MD CLINICAL HISTORY: amenorhea [...] 11/05/24 1555 DD/ 1555 TD/TT: 11/05/24 1555 Mines Safety Engineer: Procedure Note Donotuseinterpreter, Image - 11/05/[address] [address] Ultrasound Report Signed Patient: Michele PreciadoMR #: [id number] : 1990Acct:[id number] Age/Sex: 34 / FADM Date: 11/05/24 Loc: HO.US Attending Dr: Cipriano Pickens MD Ordering Physician: Cipriano Palacio MD Date of Service: 11/05/24 Procedure(s): US pelvic and transvaginal Accession Number(s): [id number] cc: Cipriano Palacio MD CLINICAL HISTORY: amenorhea [...] Cruz MD in OV> 11/05/24 1555 DD/ 54 TD/TT: 11/05/241554 Mines Safety Engineer: Cipriano Pickens MD IMG US PROCEDURES Final Result * TSH W/Reflex to FT4 (11/03/2024 1:31 PM EDT) TSH reflex Free T4 0.42 0.32 - 4.0 uIU/mL [facility] Blood Venous blood specimen / Unknown 11/03/2024 1:31 PM EDT 11/03/2024 4:02 PM EDT Yariel Duvall CNM LAB BLOOD ORDERABLES Maria T field Result [facility] [address] [place] [phone] * Prolactin (11/03/2024 1:31 PM EDT) Prolactin 16.7 ng/mL [facility] Comment:Reference Range Fema les Non- 3.0-30.0 10.0-209.0 Postmenopausal 2.0-20.0THIS TEST WAS PERFORMED AT:[facility] [place] [phone] WATERS MD Blood Venous blood specimen / Unknown 11/03/2024 1:31 PM EDT 11/03/2024 4:02 PM EDT Yariel Duvall [facility] LAB BLOOD ORDERABLES Maria T l Result [facility] [address] [place] [address] [phone] * hCG, Total, Quantitative (11/03/2024 1:31 PM EDT) Only the most recent of2 resultswithin the time period is included. HCG Quantitative <2 mIU/mL [facility] Comment:Weeks post LMP Appro ximate hCG(Last Menstrual Period) Range (mIU/ml)3 - 4 weeks 9 - 1304 - 5 weeks 75 - 2,6005 - 6 weeks 850 - 20,8006 - 7 weeks 4000 - 100,2007 - 12 weeks 11,500 - 289,67335 - 16 weeks 18,300 - 137,50961 - 29 weeks (2nd trimester) 1,400 - 53,10159 - 41 weeks (3rd trimester) 940 - [...] PM EDT 11/03/2024 4:02 PM EDT Yariel Duvall [facility] LAB BLOOD ORDERABLES Maria T l Result Performing Organization Address City/[facility] Co de Phone Number [facility] [address] [place] [phone] * HPV DNA, Low/High Risk (11/03/2024 1:26 PM EDT) HPV High Risk Negative Negative [facility] HPV Genotype 16 Negative Negative [facility] HPV Genotype 18 Negative Negative [facility] Comment:HPV testing performe d at [facility] (CLIA#[id number]), [address] [place] [phone].Testing for HPV was performed using the [employer] Viagogo0system. The presence of HPV in the female [...] EDT 11/04/2024 7:35 AM EDT Yariel Duvall [facility] LAB BLOOD ORDERABLES Maria T field Result Performing Organization Address [facility] Co de Phone Number [facility] [address] [place] [phone] * Pap Smear (11/03/2024 1:26 PM EDT) Swab Cervix uteri structure / Unknown 11/03/2024 1:26 PM EDT 11/04/2024 7:35 AM EDT Narrative [facility] - 11/06/2024 8:18 AM EDT ----- ------- Name: Michele Preciado Age/Sex: 34/F : 1990 Unit#: [id number] Attend Dr: YARIEL DUVALL CNM Re11/03/24 Status: [facility]P [facility] ------- SPEC : [id number] RECD: 11/04/24 STATUS: CEDRICK RACHEL NUM: [id number] LEIDY: 11/03/24-[address] [facility] [address]: YARIEL DUVALL CNM ENTERED: 11/04/24 SP TYPE: Pap Smr OT : ORDERED: Pap Smear Interpretation Satisfactory for evaluation. [...] and HPV testing will be performed at [facility] (CLIA #[id number]), [address] [place] [address]. Testing for HPV was performed using the [employer] Viagogo0 system. The presence of HPV in the [...] detected. All professional services are performed by [facility] ([address] [place], [place] [id number]; ; CLIA #[id number]). The PAP Test is a screening procedure with the inherent possibility of both false negative and false positive results. Results should be interpreted in the context of historic and current clinical findings. Reliability of the PAP Test is enhanced by performing the test on a regular repetitive basis. CONTINUED ON NEXT PAGE ----- ------- Name: Michele Preciado Age/Sex: 34/F : 1990 Unit#: [id number] Attend Dr: YARIEL DUVALL CNM Re11/03/24 Status: DEP [facility] Disch: ----- ------- SPEC : [id number] RECD: 11/04/24 STATUS: CEDRICK RAMOS NUM: [id number] LEIDY: 11/03/24-[address] [facility] [address]: YARIEL DUVALL CNM ENTERED: 11/04/24 SP TYPE: Pap [facility] DR: ORDERED: Pap Smear ----- ------- Signed (signature on file) BARRETT Bui (ASCP) 11/06/24 0818 ----- ------- END OF REPORT Yariel TAPIA LAB CYTOLOGY ORDERABLES F inal Result [facility] [address] [place] [phone] * POCT Urine (10/14/2024 1:47 PM EDT) Pathologist [facility] Preg Test, Ur Negative Negative, Indeterminate, None Detected, Invalid, Specimen unsatisfactory for evaluation, Weakly Positive, 2+ QC Media Lot # [id number] Lot# Expiration Date QC TEST Urine 10/14/2024 1:47 PM EDT Mary High MD POINT OF CARE TEST EN TER/EDIT ORDERABLES Final Result * Hepatitis C Antibody with Reflex to HCV, RNA, Quantitative, Real-Time PCR (04/30/2024 9:42 AM EST) Pathologist [facility] Hepatitis C Antibody Nonreactive Nonreactive [facility] Comment:Antibodies to HCV no t detected; does not exclude early acuteHCV infection. 04/30/2024 9:42 AM EST 04/30/2024 9:42 AM EST us Generic External Data Provider LAB BLOOD ORDERAB LES Final Result [facility] [address] [place] [address] [phone] * POCT HGB A1C (04/02/2024 10:00 AM EST) Hemoglobin A1C 5.9 4.0 - 6.0 % QC Media Lot # [id number] Lot# Expiration Date [id number] Blood 04/02/2024 10:0 0 AM EST Cipriano Pickens MD POINT OF CARE TEST ENTER/EDIT ORDERABLES Final Result from Last 3 Months or Most Recently Relevant to Health Maintenance [place] [address] [address] [place] [address] [facility] MEDICAID STAND ADULT Care Teams Geoscience Technician Relationship Specialty Start Date End Date Cipriano Palacio MD [address] [place] [phone] PCP - General Internal Medicine 03/24/24
--- NOTE | 2024-12-12 10:07 | HO.NEPHOV ---
Vital Signs 12/12/24 10:11 Height 5 ft Weight 149 lb 6 oz BMI 29.2 BP 120/70 Blood Pressure Location Rt brachial Position Sitting Intake Visit Reasons: 3 MO FU-Conf Bundle Tier And Labeler Required: Yes Bundle Tier And Labeler Language: Bath Design Sales Consultant Services: Bundle Tier And Labeler Present Bundle Tier And Labeler Name: Krystal [id number] Information Interpreted: clinical only Accompanied by: Self / Same As Patient Allergies No Known Allergies Allergy (Verified 12/12/24 10:10) HPI Comments Details: Michele is a 34 year old patient who moved to [facility] from [place] who is known to have proteinuria for a long time. She was seen for this by renal MD in [place] in the past and had work up including renal biopsy which showed FSGS. She was treated with prednisone as well as cyclosporine in the past . Currently she is on finerenone and lisinopril 2.5 mg. She says that her ACEI could not be increased as it was dropping her BP. She has no edema and denies any frothy/foamy urine. Her last serum creatinine was 1.06. She has no H/O DVT's or PE's. She denies orthostatic symptoms. She has no family H/O FSGS. She does not have Kerendia and is currently not getting through her insurance company [facility] Medical History Proteinuria Surgical History Hx of tubal ligation Family History Paternal Grandmother Hypertension Diabetes High cholesterol Paternal Grandfather Diabetes High cholesterol Hypertension Social History Alcohol intake: current Comment: Socially Patient Tobacco Use Status: Never used Tobacco Review of Systems Const All systems reviewed & are unremarkable except as noted in HPI and below Physical Exam Vital Signs: Last Vital Signs BP 120/70 12/12/24 10:11 BMI result Body Mass Index 29.2 Const General: comfortable and no acute distress Orientation/consciousness: patient oriented x3 HEENT Head: Yes normocephalic Mouth: Normal oral and palatal mucosa present Eyes EOM: EOMs intact bilaterally Neck Neck: Yes supple Resp Auscultation: clear to auscultation bilaterally Cardio Jugular venous distension: no JVD Rate: regular rate GI Palpation (GI): Soft to palpation Auscultation: normal bowel sounds General: Yes no CVA tenderness Back/Spine/Pelvis Back: no CVA tenderness Skin General skin exam: no rashes or lesions noted Neuro General: patient oriented x3 and moves all extremities Extrem General: Yes no pedal edema Results Reviewed Nephrology Results: Sodium, (135-145) 141 mmol/L 12/08/24 Potassium, (3.3-5.1) 4.3 mmol/L 12/08/24 Chloride, (96-108) 113 mmol/L H 12/08/24 Carbon Dioxide, (22-29) 23 mmol/L 12/08/24 BUN, (9-16) 12 mg/dL 12/08/24 Creatinine, (0.5-1.4) 0.86 mg/dL 12/08/24 Urine Creatinine 72.17 mg/dL 12/08/24 Protein/Creatinin Ratio, (<0.2) 3.41 H 12/08/24 Assessment & Plan Assessment & Plan (1) FSGS (focal segmental glomerulosclerosis): Code(s): N05.1 - Unspecified nephritic syndrome with focal and segmental glomerular lesions Category: Medical (2) Proteinuria: Code(s): R80.9 - Proteinuria, unspecified Category: Medical Qualifiers: Proteinuria type: other Qualified Code(s): R80.8 - Other proteinuria Plan Michele has H/O biopsy proven FSGS which was treated with prednisone as well as cyclosporin in [place]. Currently she is not on Finerenone . I increased her lisiniopril to 10 mg AM and 20 mg at night. She needs to cut back sodium in the diet. She should continue Vitamin D 2000 Units daily. She has requested her renal records from [place]. She may need a repeat renal biopsy as well as addition of further medications based on evolving data. She should avoid NSAID's. Answered all questions. F/U given Orders: Orders Electrolytes 2 Months N05.1 - Unspecified nephritic syndrome with focal and segmental glomerular lesions, R80.8 - Other proteinuria Blood Urea Nitrogen 2 Months N05.1 - Unspecified nephritic syndrome with focal and segmental glomerular lesions, R80.8 - Other proteinuria Creatinine 2 Months N05.1 - Unspecified nephritic syndrome with focal and segmental glomerular lesions, R80.8 - Other proteinuria Protein Creatinine Ratio, Ur 2 Months N05.1 - Unspecified nephritic syndrome with focal and segmental glomerular lesions, R80.8 - Other proteinuria Medications: Changed From lisinopril 10 mg PO BID 60 tabs 6RF To lisinopril 30 mg orally take 10 mg AM and 20 mg PM; 270 tabs 6RF 90 days Coding Level of Care Code Est Pt Level 4 (50699) Diagnoses FSGS (focal segmental glomerulosclerosis) N05.1 Other proteinuria R80.8 Proteinuria type: other
[2024-12-12 10:11] VITALS: BP 120/70; BMI 29.2
== END 2024-12-12 10:48 | disposition home or self-care (01) ==
LOC: HO.HKA 09:44
PROVIDERS: PCP Internal Medicine; Visit Provider Internal Medicine Nephrology
DX: N05.1 Unspecified nephritic syndrome with focal and segmental glomerular lesions (principal); R80.8 Other proteinuria
CPT/HCPCS: 99214

== ENCOUNTER → 2024-12-12 09:43 | Outpatient (BNVA) | payer MEDICAID, SELFPAY | PROVIDERS: PCP Internal Medicine; Visit Provider Internal Medicine Nephrology | DX: N05.1 Unspecified nephritic syndrome with focal and segmental glomerular lesions (principal); R80.8 Other proteinuria | CPT/HCPCS: 99212 ==

== ENCOUNTER 2025-01-28 10:42 | Outpatient (REF) | payer MEDICAID, SELFPAY ==
--- NOTE | ~2025-01-28 | XR_ITS ---
EXAMINATION: XR LUMBOSACRAL SPINE CLINICAL INFORMATION: low back pain COMPARISON: None available. TECHNIQUE: Three views of the lumbosacral spine. FINDINGS: Moderate stool is present in the right and transverse colon. There are 5 non-rib bearing lumbar segments. Vertebral body height and alignment is preserved. T12-L1: Minimal disc space narrowing L1-L2: Minimal disc space narrowing L2-L3: Mild disc space narrowing and endplate osteophytes L3-L4: Mild disc space narrowing and endplate osteophytes L4-L5: Unremarkable L5-S1: Unremarkable XR/XR lumbar spine 2-3V IMPRESSION: Mild multilevel degenerative disc disease. Electronically signed by: Dalton Holden MD 01/28/2025 11:20 AM EDT
--- OUTSIDE RECORDS SUMMARY | 2025-01-28 13:20 | XMS_ITS | Encounter Summary ---
Author Organization [employer] Address [address] [place] [address] [place] [address] Care Team Providers Care Lean Manufacturing Engineer Name Role Phone Cipriano Palacio MD Primary Care Prov ider Reason for Visit * Reason Onset Date Comments Med Refill 12/30/2024 Encounter Details Date Type Department Care Team (Late st Contact Info) Description 12/30/2024 Refill [facility] [address] [place] [address] Cpiriano Palacio MD [address] [place] [address] Social History Tobacco Use Types Packs/Day Years Used Date Smoking Tobacco: Never Passive Smoke Exposure: Never Smokeless Tobacco: Never Alcohol Use Standard [...] AM EST documented as of this encounter Plan of Treatment Upcoming Encounters Date Type Department Care Team (Late st Contact Info) Description 02/09/2025 8:30 AM EDT Office Visit [facility] [address] [place] [address] Cipriano Palacio MD [address] [place] [address] documented as of this encounter Visit Diagnoses Not on filedocumented in this encounter Additional Health Concerns Assessment Noted Time PHQ-9 Depression Total Score: 2 03/24/20 24 9:25 AM EST documented as of this encounter Care Teams Lean Manufacturing Engineer Relationship Specialty Start Date End Date Cipriano Palacio MD [address] [place] [address] PCP - General Internal Medicine 03/24/24 documented as of this encounter
--- OUTSIDE RECORDS SUMMARY | 2025-01-28 13:20 | XMS_ITS | Encounter Summary ---
Author Organization [employer] Address [address] [facility] 7 [place] [address] Care Team Providers Care Gut Snatcher Name Role Phone Cipriano Palacio MD Primary Care Prov ider Encounter Details Date Type Department Care Team ([facility] st Contact Info) Description 01/23/2025 Orders Only [facility] [address] [place], [place] [phone] Matias Black MD [address] [place] [address] Chronic bilateral low back pain without sciatica (Primary Dx) Social History Tobacco Use Types Packs/Day Years Used Date Smoking Tobacco: Never Passive Smoke Exposure: Never Smokeless Tobacco: Never Alcohol Use Standard Drinks/Week Comments Never 0 (1 standard drink = 0.6 oz pur e alcohol) Depression Answer Date Recorded Patient Health Questionnaire-9 Score 2 03/24/2024 Patient Health Questionnaire-9 Score 2 03/24/2024 Last PHQ-9: Questionnaire Data Not on file 1 05/24/2023 Housing Stability Answer Date Recorded What is your housing situation today? I have arianabryon santiago 01/14/[address] you li ve. Do you have problems with any of the following? None of the above 01/14/2025 Food Insecurity Answer Date Recorded Within the past 12 months, y ou worried that your food would run out before you got money to buy more: Never True 01/14/2025 Within the past 12 months,th e food you bought just didn't last and you didn't have enough money to get more: Never True Transportation Answer Date Recorded In the past 12 months, has l ack of transportation kept you from medical appts, meetings, work or from getting things needed for daily living? No 01/14/2025 Utilities Answer Date Recorded In the past 12 months, has t he electric, gas, oil or water company threatened to shut off services in your home? No 01/14/2025 Depression Answer Date Recorded Patient Health Questionnaire-2 Score 2 03/24/2024 Internet Access Answer Date Recorded Internet Access Q1 No 01/14/2025 Internet Access Q2 I do not want or need it 12/20 Comments Unknown Sex and Gender Information Value Date Recorded Sex Assigned at Female 03/24/2024 8:11 AM EST Legal Sex Female 3:15 PM EDT Gender Identity Female 03/24/2024 8:11 AM EST Sexual Orientation Straight 03/24/2024 8: 11 AM EST documented as of this encounter Plan of Treatment Upcoming Encounters Date Type Department Care Team ([facility] st Contact Info) Description 02/09/2025 8:30 AM EDT Office Visit [facility] [address] [place] [address] Cipriano Palacio MD [address] [place] [address] documented as of this encounter Visit Diagnoses Diagnosis Chronic bilateral low back pain without sciatica- Primary documented in this encounter Additional Health Concerns Assessment Noted Time PHQ-9 Depression Total Score: 2 03/24/20 24 9:25 AM EST documented as of this encounter Care Teams Gut Snatcher Relationship Specialty Start Date End Date Cipriano Palacio MD [address] [place] [address] PCP - General Internal Medicine 03/24/24 documented as of this encounter
--- OUTSIDE RECORDS SUMMARY | 2025-01-28 13:20 | XMS_ITS | Encounter Summary ---
Author Organization [employer] Address [address] [facility] 7 [place] [address] Care Team Providers Care Pattern Technician Name Role Phone Cipriano Palacio MD Primary Care Prov ider Reason for Visit * Reason Onset Date Comments Results 03/27/2024 Encounter Details Date Type Department Care Team ([facility] st Contact Info) Description 03/27/2024 Telephone [facility] MEDICINE [address] [place] [address] Cipriano Palacio MD [address] [place] [phone] Results Social History Tobacco Use Types Packs/Day [...] results: Labs Date when done: 03/25/24 Facility: [facility] Labs (Tanzanian Speaker) documented in this encounter Plan of Treatment Upcoming Encounters Date Type Department Care Team (Late st Contact Info) Description 02/09/2025 8:30 AM EDT Office Visit [facility] MED & PEDS [address] [place] [address] Cipriano Palacio MD [address] [place] [address] documented as of this encounter Visit Diagnoses Not on filedocumented in this encounter Additional Health Concerns Assessment Noted Time PHQ-9 Depression Total Score: 2 03/24/20 24 9:25 AM EST documented as of this encounter Care Teams Pattern Technician Relationship Specialty Start Date End Date Cipriano Palacio MD [address] [place] [address] PCP - General Internal Medicine 03/24/24 documented as of this encounter
--- OUTSIDE RECORDS SUMMARY | 2025-01-28 13:20 | XMS_ITS | Encounter Summary ---
Author Organization [employer] Address [address] [facility] [address] [place] [address] Care Team Providers Care Risk Engineer Name Role Phone Cipriano Palacio MD Primary Care Prov ider Encounter Details Date Type Department Care Team ([facility] st Contact Info) Description 01/22/2025 Orders Only [facility] MED & PEDS [address] [place], [place] [phone] Cipriano Palacio MD [address] [place] [address] Social History Tobacco Use Types Packs/Day Years [...] is your housing situation today? I have ariana santiago 01/14/[address] you [...] Upcoming Encounters Date Type Department Care Team ([facility] st Contact Info) Description 02/09/2025 8:30 AM EDT Office Visit [facility] MED & PEDS [address] [place] [address] Cipriano Palacio MD [address] [place] [address] documented as of this encounter Visit Diagnoses Not on filedocumented in this encounter Additional Health Concerns Assessment Noted Time PHQ-9 Depression Total Score: 2 03/24/20 24 9:25 AM EST documented as of this encounter Care Teams Risk Engineer Relationship Specialty Start Date End Date Cipriano Palacio MD [address] [place] [address] PCP - General Internal Medicine 03/24/24 documented as of this encounter
--- OUTSIDE RECORDS SUMMARY | 2025-01-28 13:20 | XMS_ITS | Clinical Summary ---
Author Organization [employer] Address [address] [place] [address] Care Team Providers Care Aircraft Delivery Checker Name Role Phone Cipriano Palacio MD Primary Care Prov ider Allergies No known active allergies Medications Blood Pressure kit 1 kit Once per day. 1 kit 03/24/20 24 Active famotidine (Pepcid) 20 MG tablet Take 1 tablet (20 mg) by mouth 2 times daily. 60 tablet 11 04/02/20 24 025 Active Additional Information Patient not taking.Reported on 08/04/2024 Finerenone (Kerendia) 10 MG tablet Take 1 tablet (10 mg) by mouth Once per day. 30 tablet 2 07/16/19 25 Active lisinopril 5 MG tablet Take 5 mg by mouth 2 times daily. Active amoxicillin (Amoxil) 500 MG capsuleIndicati ons:Left acute otitis media,Pharyngit is, unspecified etiology Take 1 tab po bid for 10 days 20 capsule 12/19/19 25 Active loperamide (Imodium) 2 MG capsule TAKE 1 TO 2 CAPSULES BY MOUTH 4 TIMES A DAY IN THE MORNING, AT NOON, IN THE EVENING, AND AT BEDTIME NEEDED FOR DIARRHEA 60 capsule 01/06/20 25 Active traMADol (Ultram) 50 MG tabletIndicatio ns:Chronic bilateral low back pain without sciatica Take 1 tablet (50 mg) by mouth every 6 (six) hours if needed for severe pain for up to 5 days. 15 tablet 01/24/20 25 025 Active loperamide (Imodium) 2 MG capsule TAKE 1 TO 2 CAPSULES BY MOUTH 4 TIMES A DAY IN THE MORNING, AT NOON, IN THE EVENING, AND AT BEDTIME NEEDED FOR DIARRHEA 60 capsule 10/08/19 25 025 Discontinued acetaminophen (Tylenol) 325 MG capsuleIndicati ons:Left acute otitis media Take 1 capsule (325 mg) by mouth every 8 (eight) hours if needed for moderate pain or fever (pain fever). 30 capsule 12/19/19 25 025 Active Problems Problem Noted Date Diagnosed Date Chronic bilateral low back pain without sciatica 01/22/2025 Assessment & Plan (01/22/2025 10:13 AM EDT): No recent trauma, avoid heavy lifting, rest, apply ice/heat pads, avoid NSAIDs due to CKD, continue with tylenol as needed, will provide a short course of tramadol, xrays will be ordered and will refer to PT Missed period 10/14/2024 Assessment & Plan (10/31/2024 [...] (03/24/2024 2:49 PM EST): Patient moved from [place], she had kidney biopsy, is on kerendia 10mg and lisinopril 2.5mg, will refer to nephrology Infertility counseling 03/24/2024 Assessment & Plan (03/24/2024 2:51 PM EST): Patient underwent tubal ligation 10 years ago, she is interested in getting , will refer to fertility clinic to review options Encounters Date Type Department Care Team Description 01/23/2025 Orders Only [facility] [address] [place] [address] Matias Black MD Chronic bilateral low back pain without sciatica (Primary Dx) 01/22/2025 Orders Only [facility] [address] [place] [address] Cipriano Palacio MD 01/22/2025 Telephone [facility] [address] [place] [address] Cipriano Palacio MD Medication Question; Referral 01/20/2025 Telephone [facility] MEDICINE [address] [place] [phone] Cipriano Palacio MD 01/15/2025 11:15 AM EDT Telemedicine [facility] [address] [place] [address] Cipriano Palacio MD Chronic bilateral low back pain without sciatica (Primary Dx) 01/15/2025 Travel 01/14/[address] [facility] PEDS [address] [place] [address] Cipriano Palacio MD No Show 01/14/2025 Telephone [facility] [address] [place] [address] Cipriano Palacio MD telehealth 01/14/2025 Telephone [facility] [address] [place] [address] Cipriano Palacio MD 01/14/2025 Travel 01/14/[address] [facility] MED [facility] PEDS [address] [place] [address] Cipriano Palacio MD Appointment Request 12/30/2024 Refill [facility] [address] [place] [address] Cipriano Palacio MD 12/30/[address] [facility] MED [facility] PEDS [address] [place] [address] Cipriano Palacio MD 12/18/2024 3:20 PM EDT Office Visit [facility] [address] [place] [phone] Jenna Elizabeth MD Left acute otitis media (Primary Dx); Pharyngitis, unspecified etiology 12/18/2024 Travel 12/08/2024 Orders Only GENERIC EXTERNAL DATA DEPARTMENT Provider, Generic External Data 11/10/2024 11:00 AM EDT Clinical Support [address] [address] Tyra Chao RN Elevated blood pressure reading 11/10/[address] [address] Cipriano Palacio MD Call Back Request (/) 11/10/2024 Travel 11/06/2024 Results Follow-Up [facility] PED[facility] [address] [place] [address] Cipriano Palacio MD US Pelvis Transvaginal 11/05/2024 Results Follow-Up [address] [address] Yariel Duvall CNM TSH W/Reflex to FT4, Prolactin, hCG, Total, Quantitative, Pap Smear 11/03/2024 1:00 PM EDT Procedure Visit [address] [address] Yariel Duvall CNM Missed period (Primary Dx); Routine cervical smear; Infertility counseling 11/03/2024 Orders Only [address] [address] Yariel Duvall CNM 11/03/2024 Travel 10/31/[address] [facility] PED[facility] [address] [place] [address] Cipriano Palacio MD US Pelvis and Transvaginal APPT 10/31/[address] [facility] [address] [place] [address] Cipriano Palacio MD Missed period (Primary Dx) 10/29/[address] [facility] [address] [place] [address] Cipriano Palacio MD from Last 3 Months [...] want or need it 12/20 Comments Unknown Intention Date Recorded Wants to become (finding) 11/03 Sex and Gender Information Value Date Recorded Sex Assigned at Female 03/24/2024 8:11 AM EST Legal Sex Female 3:15 PM EDT Gender Identity Female 03/24/2024 8:11 AM EST Sexual Orientation Straight 03/24/2024 8: 11 AM EST Last Filed Vital Signs Vital Sign Reading Time Taken Comments Blood Pressure 129/85 12/18/2024 3:20 PM EDT Pulse 98 12/18/2024 3:20 PM EDT Temperature 37 C (98.6 F) 12/18/2024 3:20 PM EDT Respiratory Rate 17 12/18/2024 3:20 PM EDT Oxygen Saturation 99% 12/18/2024 3:20 PM EDT Inhaled Oxygen Concentration - - Weight 67.3 kg (148 lb 6.4 oz) 12/18/2024 3:20 P M EDT Height 152.4 cm (5') 12/18/2024 3:20 PM EDT Body Mass Index 28.98 12/18/2024 3:20 PM EDT Plan of Treatment Upcoming Encounters Date Type Department Care Team (Late st Contact Info) Description 02/09/2025 8:30 AM EDT Office Visit [facility] [address] [place], [place] [phone] Cipriano Palacio MD [address] [place], [place] [phone] Health Maintenance Due Date Last Done Comments Dental Oral Exam 1990 Dental Prophylaxis 1990 Dental X-Ray: Bitewings 1990 Dental X-Ray: Full Mouth 1990 HIV Screening 1990 Disability Screening 1992 HPV Vaccines (1 - 3-dose series) 01/24/2007 DTaP/Tdap/Td Vaccines (1 - Tdap) 01/24/2011 Hepatitis B Vaccines (1 of 3 - 19+ 3-dose series) 01/24/2011 COVID-19 Vaccine ( - 2023-2 5 season) 2025 Influenza Vaccine (#1) 2025 Depression Screening 03/24/2025 03/24/2024, 03/24/2024 Diabetes: Hemoglobin A1C 04/02/2025 04/02/2024 Family Planning (PISQ) 11/03/2025 11/03/2024 Tobacco Screening 12/18/2025 12/18/2024 Alcohol/Substance Use Screening 01/14/2026 01/14/2025 SDOH Screening 01/14/2026 01/14/2025 Cervical Cancer Screening 11/03/2029 HPV/Cotest 11/03/2029 11/03/2024 [...] Procedure Name Priority Date/Time Associated Diagnosis Comments XR LUMBAR SPINE 2-3 VIEWS Routine 01/28/2025 11:11 AM EDT Chronic bilateral low back pain without sciatica POCT RAPID COVID ANTIGEN Routine 12/18/2024 3:36 PM EDT Pharyngitis, unspecified etiology POCT INFLUENZA B (ID NOW RAPID MOLECULAR) Routine 12/18/2024 3:36 PM EDT Pharyngitis, unspecified etiology POCT INFLUENZA A (ID NOW RAPID MOLECULAR) Routine 12/18/2024 3:36 PM EDT Pharyngitis, unspecified etiology POCT RAPID STREP A Routine 12/18/2024 3: 29 PM EDT Pharyngitis, unspecified etiology PROTEIN CREATININE RATIO, URINE Routine 12/08/2024 9:41 [...] LOW/HIGH RISK Routine 11/03/2024 1:26 PM EDT HEPATITIS C AB W/REFL TO HCV RNA, QN, PCR Routine 04/30/2024 9:42 AM EST POCT GLYCATED HEMOGLOBIN, TOTAL Routine 04/02/2024 10:00 AM EST Prediabetes from Last 3 Months or Most Recently Relevant to Health Maintenance Results * XR Lumbar Spine 2-3 Views (01/28/2025 11:11 AM EDT) Anatomical Region Laterality Modality Spine, L-spine Radiographic Gertrudis ging 01/28/2025 11:1 1 AM EDT Narrative 01/28/2025 11:[address] [address] XRay Report Signed Patient: Michele Preciado MR #: [id number] : 1990 Acct:[id number] Age/Sex: 35 / F ADM Date: 01/28/25 Loc: SOY Attending Dr: Cipriano Pickens MD Ordering Physician: Cipriano Palacio MD Date of Service: 01/28/25 Procedure(s): XR lumbar spine 2-3V Accession Number(s): [id number] cc: Cipriano Palacio MD Reason for Exam: low back pain EXAMINATION: XR LUMBOSACRAL SPINE CLINICAL INFORMATION: low back pain COMPARISON: None available. TECHNIQUE: Three views of the lumbosacral spine. FINDINGS: Moderate stool is present in the right and transverse colon. There are 5 non-rib bearing lumbar segments. Vertebral body height and alignment is preserved. T12-L1: Minimal disc space narrowing L1-L2: Minimal disc space narrowing L2-L3: Mild disc space narrowing and endplate osteophytes L3-L4: Mild disc space narrowing and endplate osteophytes L4-L5: Unremarkable L5-S1: Unremarkable XR/XR lumbar spine 2-3V IMPRESSION: Mild multilevel degenerative disc disease. Electronically signed by: Dalton Holden MD 01/28/2025 11:20 AM EDT Dictated By: Dalton Holden MD Signed By: <Electronically signed by Dalton Holden MD in OV> 01/28/25 1120 DD/ 1111 TD/TT: 01/28/25 1115 Telephone Interviewer: Procedure Note Donotuseinterpreter, Image - 01/28/2025 [place] [address] XRay Report Signed Patient: Michele Preciado #: [id number] : 1990Acct:[id number] Age/Sex: 35 / FADM Date: 01/28/25 Loc: HO.XRAY Attending Dr: Cipriano Pickens MD Ordering Physician: Cipriano Palacio MD Date of Service: 01/28/25 Procedure(s): XR lumbar spine 2-3V Accession Number(s): [id number] cc: Cipriano Palacio MD Reason for Exam: low back pain EXAMINATION: XR LUMBOSACRAL SPINE CLINICAL INFORMATION: low back pain COMPARISON: None available. TECHNIQUE: Three views of the lumbosacral spine. FINDINGS: Moderate stool is present in the right and transverse colon. There are 5 non-rib bearing lumbar segments. Vertebral body height and alignment is preserved. T12-L1: Minimal disc space narrowing L1-L2: Minimal disc space narrowing L2-L3: Mild disc space narrowing and endplate osteophytes L3-L4: Mild disc space narrowing and endplate osteophytes L4-L5: Unremarkable L5-S1: Unremarkable XR/XR lumbar spine 2-3V IMPRESSION: Mild multilevel degenerative disc disease. Electronically signed by: Dalton Holden MD 01/28/2025 11:20 AM EDT RP Dictated By: Dalton Holden MD Signed By: <Electronically signed by Dalton Holden MD in OV> 01/28/25 1120 DD/ 1111 TD/TT: 01/28/25 1115 Telephone Interviewer: Cipriano Pickens MD IMG XR PROCEDURES Final Result * Influenza B (ID NOW Rapid Molecular) (12/18/2024 3:36 PM EDT) Influenza B Negative Negative, Indeterminate [facility] Swab 12/18/2024 3:36 PM EDT Jenna Elizabeth MD POINT OF CARE TEST ENTER/E DIT ORDERABLES Final Result Performing Organization Address [facility] Co de Phone Number [facility] [address] [place] [phone] * Influenza A (ID NOW Rapid Molecular) (12/18/2024 3:36 PM EDT) Influenza A Negative Negative, Indeterminate [facility] Swab 12/18/2024 3:36 PM EDT Jenna Elizabeth MD POINT OF CARE TEST ENTER/E DIT ORDERABLES Final Result Performing Organization Address [facility]/State/ZIP Co de Phone Number [facility] [address] [place] [phone] [phone] * POCT Rapid COVID Ag (12/18/2024 3:36 PM EDT) Rapid COVID Ag Negative Swab 12/18/2024 3:36 PM EDT Jenna Elizabeth MD POINT OF CARE TEST ENTER/E DIT ORDERABLES Final Result * POCT rapid strep A manually resulted (12/18/2024 3:29 PM EDT) [facility] Rapid Strep A Screen Negative Negative, None Detected Swab 12/18/2024 3:29 PM EDT Jenna Elizabeth MD POINT OF CARE TEST ENTER/E DIT ORDERABLES Final Result * (ABNORMAL) Protein Creatinine Ratio, Urine (12/08/2024 9:41 AM EDT) [facility] Creatinine, Urine 72.17 mg/dL [facility] Protein, Total, Random Urine 246(H) <12 mg/dL [facility] Protein/Creati nine Ratio, Ur 3.41(H) <0.2 [facility] Comment:The spot urine prote in:creatinine ratio may increase to 0.3during normal . 12/08/2024 9:41 AM EDT 12/08/2024 11:14 AM EDT us Generic External Data Provider LAB URINE ORDERAB LES Final Result [facility] [address] [place] [phone] [phone] * Creatinine, Serum (12/08/2024 9:41 AM EDT) Pathologist [facility] Creatinine, Serum 0.86 0.5 - 1.4 mg/dL [facility] Estimated Glomerular Filt Rate >60 [facility] Comment:Chronic Kidney Disea se: Estimated GFR < 60 mL/min/1.98c9Pfchxe Kidney Disease: Estimated GFR < 15 mL/min/1.73m2 12/08/2024 9:41 AM EDT 12/08/2024 11:10 AM EDT us Generic External Data Provider LAB BLOOD ORDERAB LES Final Result Performing Organization Address [facility] de Phone Number [facility] [address] [place] [phone] * BUN (Blood Urea Nitrogen) (12/08/2024 9:41 AM EDT) Urea Nitrogen (BUN) 12 9 - 16 mg/dL [facility] 12/08/2024 9:41 AM EDT 12/08/2024 11:10 AM EDT us Generic External Data Provider LAB BLOOD ORDERAB LES Final Result Performing Organization Address [facility] de Phone Number [facility] [address] [place] [phone] * (ABNORMAL) Electrolyte Panel (12/08/2024 9:41 AM EDT) Sodium 141 135 - 145 mmol/L [facility] Potassium 4.3 3.3 - 5.1 mmol/L [facility] Comment:Slight Hemolysis.Int erpret result with caution. Chloride 113(H) 96 - 108 mmol/L [facility] Carbon Dioxide 23 22 - 29 mmol/L [facility] Anion Gap 9(L) 12 - 20 [facility] 12/08/2024 9:41 AM EDT 12/08/2024 11:10 AM EDT us Generic External Data Provider LAB BLOOD ORDERAB LES Final Result Performing Organization Address [facility] Co de Phone Number [facility] [address] [place] [phone] * US Pelvis Transvaginal (11/05/2024 3:55 PM EDT) Anatomical Region Laterality Modality Pelvis Ultrasound 11/05/2024 3:55 PM EDT Narrative 11/05/2024 3:[address] [address] Ultrasound Report Signed Patient: Michele Preciado MR #: [id number] : 1990 Acct:[id number] Age/Sex: 34 / F ADM Date: 11/05/24 Loc: HO.US Attending Dr: Cipriano Pickens MD Ordering Physician: Cipriano Palacio MD Date of Service: 11/05/24 Procedure(s): US pelvic and transvaginal Accession Number(s): [id number] cc: Cipriano Palacio MD CLINICAL HISTORY: amenorhea [...] OV> 11/05/24 1555 DD/ 54 TD/TT: 11/05/241554 Telephone Interviewer: Procedure Note Donotuseinterpreter, Image - 11/05/[address] [address] Ultrasound Report Signed Patient: Michele PreciadoMR #: [id number] : 1990Acct:[id number] Age/Sex: 34 / FADM Date: 11/05/24 Loc: HO.US Attending Dr: Cipriano Pickens MD Ordering Physician: Cipriano Palacio MD Date of Service: 11/05/24 Procedure(s): US pelvic and transvaginal Accession Number(s): [id number] cc: Cipriano Palacio MD CLINICAL HISTORY: amenorhea [...] 11/05/24 1555 DD/ 1555 TD/TT: 11/05/24 1555 Telephone Interviewer: us Cipriano Pickens MD IMG US PROCEDURES Final Result * TSH W/Reflex to FT4 (11/03/2024 1:31 PM EDT) TSH reflex Free T4 0.42 0.32 - 4.0 uIU/mL [facility] Blood Venous blood specimen / Unknown 11/03/2024 1:31 PM EDT 11/03/2024 4:02 PM EDT Yariel Duvall [facility] LAB BLOOD ORDERABLES Maria T l Result Performing Organization Address [facility] Co de Phone Number [facility] [address] [place] [phone] * Prolactin (11/03/2024 1:31 PM EDT) Prolactin 16.7 ng/mL [facility] Comment:Reference Range Fema les Non- 3.0-30.0 10.0-209.0 Postmenopausal 2.0-20.0THIS TEST WAS PERFORMED AT:[facility] [place] [phone] WATERS MD Blood Venous blood specimen / Unknown 11/03/2024 1:31 PM EDT 11/03/2024 4:02 PM EDT [facility] BLOOD ORDERABLES Maria T l Result Performing Organization Address [facility] Co de Phone Number [facility] [address] [place] [phone] * hCG, Total, Quantitative (11/03/2024 1:31 PM EDT) HCG Quantitative <2 mIU/mL [facility] Comment:Weeks post LMP Appro ximate hCG(Last Menstrual Period) Range (mIU/ml)3 - 4 weeks 9 - 1304 - 5 weeks 75 - 2,6005 - 6 weeks 850 - 20,8006 - 7 weeks 4000 - 100,2007 - 12 weeks 11,500 - 289,69770 - 16 weeks 18,300 - 137,63753 - 29 weeks (2nd trimester) 1,400 - 53,93499 - 41 weeks (3rd trimester) 940 - [...] PM EDT 11/03/2024 4:02 PM EDT Yariel Cooperernestina [facility] LAB BLOOD ORDERABLES Maria T l Result Performing Organization Address City/[facility]/ZIP Co de Phone Number [facility] [address] [place] [phone] * HPV DNA, Low/High Risk (11/03/2024 1:26 PM EDT) HPV High Risk Negative Negative [facility] HPV Genotype 16 Negative Negative [facility] HPV Genotype 18 Negative Negative [facility] Comment:HPV testing performe d at [facility] (CLIA#[id number]), [address] [place] [address].Testing for HPV was performed using the Jose [...] PM EDT 11/04/2024 7:35 AM EDT Yariel Cooperernestina [facility] LAB BLOOD ORDERABLES Maria T l Result Performing Organization Address [facility]/ZIP Co de Phone Number [facility] [address] [place] [phone] * Pap Smear (11/03/2024 1:26 PM EDT) Swab Cervix uteri structure / Unknown 11/03/2024 1:26 PM EDT 11/04/2024 7:35 AM EDT [facility] - 11/06/2024 8:18 AM EDT ----- ------- Name: Jay RgHallealice Age/Sex: 34/F : 1990 Unit#: [id number] Attend Dr: YARIEL DUVALL CNM Re11/03/24 Status: DEP [facility] Disch: ----- ------- SPEC : [id number] RECD: 11/04/24 STATUS: CEDRICK RAMOS NUM: [id number] ELIDY: 11/03/24-1326 [facility] DR: YARIEL DUVALL CNM ENTERED: 11/04/2444 SP TYPE: Pap Smr OTHR : ORDERED: Pap Smear Interpretation Satisfactory for [...] and HPV testing will be performed at [facility] (CLIA #[id number] [address]. Testing for HPV was performed using the Jose Miguel EULOGIO 6800 system. The presence of HPV [...] detected. All professional services are performed by [facility] ([address] [place], [place] [phone]; ; CLIA #[id number]). The PAP Test is a screening procedure with the inherent possibility of both false negative and false positive results. Results should be interpreted in the context of historic and current clinical findings. Reliability of the PAP Test is enhanced by performing the test on a regular repetitive basis. CONTINUED ON NEXT PAGE ----- ------- Name: Michele Precaido Age/Sex: 34/F : 1990 Unit#: [id number] Attend Dr: YARIEL DUVALL Carolyn Re11/03/24 Status: DEP [facility]F [facility] Disch: ----- ------- SPEC : [id number] RECD: 06/ STATUS: CEDRICK RAMOS NUM: [id number] LEIDY: 11/03/24-1326 [facility] DR: YARIEL DUVALL CNM ENTERED: 11/04/24 SP TYPE: Pap Smr HORACE DR: ORDERED: Pap Smear ----- ------- Signed (signature on file) BARRETT Bui (ASCP) 11/06/24 0818 ----- ------- END OF REPORT Yariel Duvall CNM LAB CYTOLOGY ORDERABLES F inal Result Performing Organization Address [facility]/ZIP Co de Phone Number [facility] [address] [place] [phone] * Hepatitis C Antibody with Reflex to HCV, RNA, Quantitative, Real-Time PCR (04/30/2024 9:42 AM EST) Hepatitis C Antibody Nonreactive Nonreactive [facility] Comment:Antibodies to HCV no t detected; does not exclude early acuteHCV infection. 04/30/2024 9:42 AM EST 04/30/2024 9:42 AM EST Generic External Data Provider LAB BLOOD ORDERAB LES Final Result Performing Organization Address [facility]/ZIP Co de Phone Number [facility] [address] [place] [phone] * POCT HGB A1C (04/02/2024 10:00 AM EST) Hemoglobin A1C 5.9 4.0 - 6.0 % QC Media Lot # [id number] Lot# Expiration Date [id number] Blood 04/02/2024 10:0 0 AM EST Cipriano Pickens MD POINT OF CARE TEST ENTER/EDIT ORDERABLES Final Result from Last 3 Months or Most Recently Relevant to Health Maintenance Insurance C3 * Guarantor: Michele Preciado Account Type Relation to Patient Date of Phone Billing Address Dental Self [address] [place] [address] [facility] MEDICAID STAND ADULT Care Teams Aircraft Delivery Checker Relationship Specialty Start Date End Date McphersonCipriano Michael MD [address] [place] [phone] PCP - General Internal Medicine 03/24/24
--- OUTSIDE RECORDS SUMMARY | 2025-01-28 13:20 | XMS_ITS | Encounter Summary ---
Author Organization [employer] Address [address] [place] [address] Care Team Providers Care Professional Driver Name Role Phone Cipriano Palacio MD Primary Care Prov ider Encounter Details Date Type Department Care Team (Late st Contact Info) Description 01/20/2025 Telephone [facility] [address] [place] [address] Cipriano Palacio MD [address] [place] [address] Social History Tobacco Use Types Packs/Day Years [...] encounter Miscellaneous Notes * Telephone Encounter - Soraida Guzman - 01/20/2025 11:07 AM EDT Tc from pt repotting she has an televisit with PCP as 01/15, PCP advised he was going to send a Referral for Physical therapia, an XR sciatic an a medication, Tramadol Please contact pt at [phone] documented in this encounter Plan of Treatment Upcoming Encounters Date Type Department Care Team (Late st Contact Info) Description 02/09/2025 8:30 AM EDT Office Visit [facility] [address] [place] [address] Cipriano Palacio MD [address] [place] [address] documented as of this encounter Visit Diagnoses Not on filedocumented in this encounter Additional Health Concerns Assessment Noted Time PHQ-9 Depression Total Score: 2 03/24/20 24 9:25 AM EST documented as of this encounter Care Teams Professional Driver Relationship Specialty Start Date End Date Cipriano Palacio MD [address] [place] [address] PCP - General Internal Medicine 03/24/24 documented as of this encounter
== END 2025-01-28 10:43 | disposition home or self-care (01) ==
LOC: HO.XRAY 10:42
PROVIDERS: PCP Internal Medicine; Visit Provider Internal Medicine
DX: M54.50 Low back pain, unspecified (principal); G89.29 Other chronic pain
CPT/HCPCS: 72100

== ENCOUNTER → 2025-01-28 10:49 | Outpatient (BNV) | payer MEDICAID, SELFPAY | PROVIDERS: PCP Internal Medicine; Visit Provider Radiology Diagnostic Radiology | DX: M54.50 Low back pain, unspecified (principal) | CPT/HCPCS: 72100 ==

== ENCOUNTER 2025-02-10 08:17 | Outpatient (REF) | payer MEDICAID, SELFPAY ==
--- OUTSIDE RECORDS SUMMARY | 2025-02-09 08:30 | XMS_ITS | Encounter Summary ---
Author Organization [employer] Address 75 [facility] 7 [place] [address] Care Team Providers Care Torch Burner Name Role Phone Cipriano Palacio MD Primary Care Prov ider Encounter Details Date Type Department Care Team ([facility] st Contact Info) Description 02/09/2025 8:30 AM EDT Office Visit [facility] MED & PEDS [address] [place] [address] Cipriano Palacio MD [address] [place] [address] Missed period (Primary Dx) Social History Tobacco Use Types [...] Sign Reading Time Taken Comments Blood Pressure 136/84 02/09/2025 8:50 AM EDT Pulse 72 02/09/2025 8:50 AM EDT Temperature 37.1 C (98.7 F) 02/09/2025 8:50 AM EDT Respiratory Rate 20 02/09/2025 8:50 AM EDT Oxygen Saturation - - Inhaled Oxygen Concentration - - Weight 63.5 kg (140 lb) 02/09/2025 8:50 AM EDT Height 152.4 cm (5') 02/09/2025 8:50 AM EDT Body Mass Index 27.34 02/09/2025 8:50 AM EDT documented in this encounter Plan of Treatment Scheduled Orders Name Type Priority Associated Diagnoses Orde r Schedule Comprehensive Metabolic Panel Lab Routine Missed period Expected: 02/09/2025 (Approximate), Expires: 02/09/2026 FSH And LH Lab Routine Missed period Expected: 02/09/2025 (Approximate), Expires: 02/09/2026 Prolactin Lab Routine Missed period Expected: 02/09/2025 (Approximate), Expires: 02/09/2026 Estradiol Lab Routine Missed period Expected: 02/09/2025, Expires: 02/09/2026 documented as of this encounter Visit Diagnoses Diagnosis Missed period- Primary documented in this encounter Additional Health Concerns Assessment Noted Time PHQ-9 Depression Total Score: 2 03/24/20 9:25 AM EST documented as of this encounter Care Teams Torch Burner Relationship Specialty Start Date End Date Cipriano Palacio MD [address] [place] [phone] PCP - General Internal Medicine 03/24/24 documented as of this encounter
--- OUTSIDE RECORDS SUMMARY | 2025-02-10 09:13 | XMS_ITS | Encounter Summary ---
Author Organization [employer] Address 75 [facility] 7 [place] [address] Care Team Providers Care Card Processing Clerk Name Role Phone Cipriano Palacio MD Primary Care Prov ider Reason for Visit * Reason Onset Date Comments Results 03/27/2024 Encounter Details Date Type Department Care Team ([facility] st Contact Info) Description 03/27/2024 Telephone [facility] MEDICINE [address] [place] [address] Cipriano Palacio MD [address] [place] [phone] Results Social History Tobacco Use Types Packs/Day [...] results: Labs Date when done: 03/25/24 Facility: [facility] Labs (Stateless Speaker) documented in this encounter Plan of Treatment Not on file documented as of this encounter Visit Diagnoses Not on filedocumented in this encounter Additional Health Concerns Assessment Noted Time PHQ-9 Depression Total Score: 2 03/24/20 9:25 AM EST documented as of this encounter Care Teams Card Processing Clerk Relationship Specialty Start Date End Date Cipriano Palacio MD [address] [place] [phone] PCP - General Internal Medicine 03/24/24 documented as of this encounter
--- OUTSIDE RECORDS SUMMARY | 2025-02-10 09:13 | XMS_ITS | Encounter Summary ---
Author Organization [employer] Address [address] [place] [address] Care Team Providers Care Broker In Charge Name Role Phone Cipriano Palacio MD Primary Care Prov ider Reason for Visit * Reason Onset Date Comments Med Refill 12/30/2024 Encounter Details Date Type Department Care Team ([facility] st Contact Info) Description 12/30/2024 Refill [facility] MED & PEDS [address] [place] [address] Cipriano Palacio MD [address] [place] [address] Social History Tobacco Use Types Packs/Day Years [...] as of this encounter Plan of Treatment Not on file documented as of this encounter Visit Diagnoses Not on filedocumented in this encounter Additional Health Concerns Assessment Noted Time PHQ-9 Depression Total Score: 2 03/24/20 9:25 AM EST documented as of this encounter Care Teams Broker In Charge Relationship Specialty Start Date End Date Cipriano Palacio MD [address] [place] [phone] PCP - General Internal Medicine 03/24/24 documented as of this encounter
--- OUTSIDE RECORDS SUMMARY | 2025-02-10 09:13 | XMS_ITS | Encounter Summary ---
Author Organization [employer] Address [address] [facility] [address] 7t [place] [address] Care Team Providers Care Mine Superintendent Name Role Phone Cipriano Palacio MD Primary Care Prov ider Encounter Details Date Type Department Care Team (Late st Contact Info) Description 01/20/2025 Telephone [facility] MEDICINE [address] [place] [address] Cipriano Palacio MD [address] [place] [address] Social History Tobacco Use Types Packs/Day Years [...] a medication, Tramadol Please contact pt at [phone] documented in this encounter Plan of Treatment Not on file documented as of this encounter Visit Diagnoses Not on filedocumented in this encounter Additional Health Concerns Assessment Noted Time PHQ-9 Depression Total Score: 2 03/24/20 24 9:25 AM EST documented as of this encounter Care Teams Mine Superintendent Relationship Specialty Start Date End Date Cipriano Palacio MD [address] [place] [phone] PCP - General Internal Medicine 03/24/24 documented as of this encounter
--- OUTSIDE RECORDS SUMMARY | 2025-02-10 09:13 | XMS_ITS | Encounter Summary ---
Author Organization [employer] Address 75 [facility] 7t [place] [address] Care Team Providers Care Head Insulation Board Saw Operator Name Role Phone Cipriano Palacio MD Primary Care Prov ider Encounter Details Date Type Department Care Team (Latest Contact Info) Description 02/09/2025 Travel Social History Tobacco Use Types Packs/Day Years [...] documented as of this encounter Care Teams Head Insulation Board Saw Operator Relationship Specialty Start Date End Date Cipriano Palacio MD [address] [place] [phone] PCP - General Internal Medicine 03/24/24 documented as of this encounter
--- OUTSIDE RECORDS SUMMARY | 2025-02-10 09:13 | XMS_ITS | Encounter Summary ---
Author Organization [employer] Address 75 [facility] 7 [place] [address] Care Team Providers Care Curtain Supervisor Name Role Phone Cipriano Palacio MD Primary Care Prov ider Encounter Details Date Type Department Care Team ([facility] st Contact Info) Description 01/22/2025 Orders Only [facility] CH[facility] MED & PEDS [address] [place], [place] [phone] Cipriano Palacio MD [address] [place] [address] Social History Tobacco Use Types Packs/Day Years [...] documented as of this encounter Care Teams Curtain Supervisor Relationship Specialty Start Date End Date Cipriano Palacio MD [address] [place] [phone] PCP - General Internal Medicine 03/24/24 documented as of this encounter
--- OUTSIDE RECORDS SUMMARY | 2025-02-10 09:13 | XMS_ITS | Encounter Summary ---
Author Organization [employer] Address [address] [place] [address] [place] [address] Care Team Providers Care Sail Repairer Name Role Phone Cipriano Palacio MD Primary Care Prov ider Reason for Visit * Reason Onset Date Comments chart prep 02/06/2025 Encounter Details Date Type Department Care Team ([facility] Contact Info) Description 02/06/2025 Telephone [facility] MED & PEDS [address] [place], [place] [phone] Cipriano Palacio MD 505 [place] [address] chart prep Social History Tobacco Use Types Packs/Day Years [...] your housing situation today? I have ariana sing 01/14/[address] you li [...] encounter Miscellaneous Notes * Telephone Encounter - Kateryna Hui [place] - 02/06/2025 1:09 PM EDT Chart Prep Labs: done Images: done Referrals: not applicable Vaccines due: Covid, Flu, Tdap, Hep B, and HPV Screenings: not applicable Overdue care gaps: Disability screen documented in this encounter Plan of Treatment Not on file documented as of this encounter Visit Diagnoses Not on filedocumented in this encounter Additional Health Concerns Assessment Noted Time PHQ-9 Depression Total Score: 2 03/24/20 24 9:25 AM EST documented as of this encounter Care Teams Sail Repairer Relationship Specialty Start Date End Date Cipriano Palacio MD [address] [place] [phone] PCP - General Internal Medicine 03/24/24 documented as of this encounter
--- OUTSIDE RECORDS SUMMARY | 2025-02-10 09:13 | XMS_ITS | Encounter Summary ---
Author Organization [employer] Address 75 [facility] 7 [place] [address] Care Team Providers Care Collection Support Specialist Name Role Phone Cipriano Palacio MD Primary Care Prov ider Encounter Details Date Type Department Care Team ([facility] st Contact Info) Description 01/23/2025 Orders Only [facility] CH[facility] MED & PEDS 505 [place], [place] [phone] Matias Black MD 505 [place] [address] Chronic bilateral low back pain without sciatica [...] documented as of this encounter Care Teams Collection Support Specialist Relationship Specialty Start Date End Date Cipriano Palacio MD [address] [place] [phone] PCP - General Internal Medicine 03/24/24 documented as of this encounter
--- OUTSIDE RECORDS SUMMARY | 2025-02-10 09:13 | XMS_ITS | Clinical Summary ---
Author Organization [employer] Address 75 [facility] 7t [place] [address] Care Team Providers Care Swimming Pool Salesperson Name Role Phone Cipriano Palacio MD Primary [...] FOR DIARRHEA 60 capsule 01/06/20 25 Active amoxicillin (Amoxil) 500 MG capsuleIndicati ons:Left acute otitis media,Pharyngit is, unspecified etiology Take 1 tab po bid for 10 days 20 capsule 12/19/19 25 025 Discontinued acetaminophen (Tylenol) 325 MG capsuleIndicati ons:Left acute otitis media Take 1 capsule (325 mg) by mouth every 8 (eight) hours if needed for moderate pain or fever (pain fever). 30 capsule 12/19/19 25 025 traMADol (Ultram) 50 MG tabletIndicatio ns:Chronic bilateral low back pain without sciatica Take 1 tablet (50 mg) by mouth every 6 (six) hours if needed for severe pain for up to 5 days. 15 tablet 01/24/20 25 025 Active Problems Problem Noted Date [...] 2:49 PM EST): Patient moved from [place], she had kidney biopsy, is on kerendia 10mg and lisinopril 2.5mg, will refer to nephrology Infertility counseling 03/24/2024 Assessment & Plan (03/24/2024 2:51 PM EST): Patient underwent tubal ligation 10 years ago, she is interested in getting , will refer to fertility clinic to review options Encounters Date Type Department Care Team Description 02/09/2025 8:30 AM EDT Office Visit [facility] MED & PEDS [address] [facility] [place] [address] Cipriano Palacio MD Missed period (Primary Dx) 02/09/2025 Travel 02/06/2025 Telephone [facility] MED & PEDS [address] [facility] [place] [address] Cipriano Palacio MD chart prep 01/23/2025 Orders Only [facility] MED & PEDS [address] [place] [address] Matias Black MD Chronic bilateral low back pain without sciatica (Primary Dx) 01/22/2025 Orders Only [facility] MED & PEDS [address] [place] [address] Cipriano Palacio MD 01/22/2025 Telephone [facility] MED & PEDS [address] [place] [address] Cipriano Palacio MD Medication Question; Referral 01/20/2025 Telephone [facility] MEDICINE [address] [place] [address] Cipriano Palacio MD 01/15/2025 11:15 AM EDT Telemedicine [facility] MED & PEDS [address] [place] [address] Cipriano Palacio MD Chronic bilateral low back pain without sciatica (Primary Dx) 01/15/2025 Travel 01/14/2025 Telephone [facility] MED & PEDS [address] [place] [address] Cipriano Palacio MD No Show 01/14/2025 Telephone [facility] MED & PEDS [address] [place] [address] Cipriano Palacio MD telehealth 01/14/2025 Telephone [facility] MED & PEDS [address] [place] [address] Cipriano Palacio MD 01/14/2025 Travel 01/14/2025 Telephone [facility] MED & PEDS [address] [place] [address] Cipriano Palacio MD Appointment Request 12/30/2024 Refill [facility] MED & PEDS [address] [place] [address] Cipriano Palacio MD 12/30/2024 Refill [facility] MED & PEDS [address] [place] [address] Cipriano Palacio MD 12/18/2024 3:20 PM EDT Office Visit [facility] [address] [place] [address] Jenna Elizabeth MD Left acute otitis media (Primary Dx); Pharyngitis, unspecified etiology 12/18/2024 Travel 12/08/2024 Orders Only GENERIC EXTERNAL DATA DEPARTMENT Provider, Generic External Data 11/10/2024 11:00 AM EDT Clinical Support [facility] [address] [place] [phone] Tyra Chao RN Elevated blood pressure reading 11/10/[address] [address] Cipriano Palacio MD Call Back Request (/) 11/10/2024 Travel from Last 3 Months Family History Medical [...] 20 02/09/2025 8:50 AM EDT Oxygen Saturation 99% 12/18/2024 3:20 PM EDT Inhaled Oxygen Concentration - - Weight 63.5 kg (140 lb) 02/09/2025 8:50 AM EDT Height 152.4 cm (5') 02/09/2025 8:50 AM EDT Body Mass Index 27.34 02/09/2025 8:50 AM EDT Plan of Treatment Health Maintenance Due Date Last Done Comments Dental Oral Exam 1990 Dental Prophylaxis 1990 Dental X-Ray: Bitewings 1990 Dental X-Ray: Full Mouth 1990 HIV Screening 1990 HPV Vaccines (1 - 3-dose [...] Screening 01/14/2026 01/14/2025 SDOH Screening 01/14/2026 01/14/2025 Disability Screening 02/09/2026 02/09/2025 Cervical Cancer Screening 11/03/2029 HPV/Cotest 11/03/2029 11/03/2024 [...] PANEL Routine 12/08/2024 9:4 1 AM EDT HPV DNA, LOW/HIGH RISK Routine 11/03/2024 1:26 PM EDT PAP SMEAR Routine 11/03/2024 1:26 PM EDT Routine cervical smear HEPATITIS C AB W/REFL TO HCV RNA, [...] AM EDT Narrative 01/28/2025 11:23 AM EDT [address] [address] XRay Report Signed Patient: Michele Preciado MR #: [id number] : 1990 Acct:[id number] Age/Sex: 35 / F ADM Date: 01/28/25 Loc: [facility] Attending Dr: Cipriano Pickens MD Ordering Physician: Cipriano Palacio MD Date of Service: 01/28/25 Procedure(s): XR lumbar spine 2-3V Accession Number(s): [id number] cc: Cipriano Palacio MD Reason for Exam: [...] 01/28/25 1120 DD/ 1111 TD/TT: 01/28/25 1115 Computer Education Teacher: Procedure Note Donotuseinterpreter, Image - 01/28/2025 [place] [address] XRay Report Signed Patient: Michele Preciado #: [id number] : 1990Acct:[id number] Age/Sex: 35 / FADM Date: 01/28/25 Loc: HO.XRAY Attending Dr: Cipriano Pickens MD Ordering Physician: Cipriano Palacio MD Date of Service: 01/28/25 Procedure(s): XR lumbar spine 2-3V Accession Number(s): [id number] cc: Cipriano Palacio MD Reason for Exam: [...] 01/28/25 1120 DD/ 1111 TD/TT: 01/28/25 1115 Computer Education Teacher: Cipriano Pickens MD IMG XR PROCEDURES Final Result * Influenza B (ID NOW Rapid Molecular) (12/18/2024 3:36 PM EDT) Influenza B Negative Negative, Indeterminate [facility] Swab 12/18/2024 3:36 PM EDT Jenna Elizabeth MD POINT OF CARE TEST ENTER/E DIT ORDERABLES Final Result Performing Organization Address [facility] Co de Phone Number [facility] [address] [place] [phone] * Influenza A (ID NOW Rapid Molecular) (12/18/2024 3:36 PM EDT) Influenza A Negative Negative, Indeterminate [facility] Swab 12/18/2024 3:36 PM EDT Jenna Elizabeth MD POINT OF CARE TEST ENTER/E DIT ORDERABLES Final Result Performing Organization Address [facility] Co de Phone Number [facility] [address] [place] [address] [phone] * POCT Rapid COVID Ag (12/18/2024 3:36 PM EDT) [facility] Rapid COVID Ag Negative Swab 12/18/2024 3:36 PM EDT Jenna Elizabeth MD POINT OF CARE TEST ENTER/E DIT ORDERABLES Final Result * POCT rapid strep A manually resulted (12/18/2024 3:29 PM EDT) [facility] Rapid Strep A Screen Negative Negative, None Detected Swab 12/18/2024 3:29 PM EDT Jenna Elizabeth MD POINT OF CARE TEST ENTER/E DIT ORDERABLES Final Result * (ABNORMAL) Protein Creatinine Ratio, Urine (12/08/2024 9:41 AM EDT) [facility] Creatinine, Urine 72.17 mg/dL [facility] Protein, Total, Random Urine 246(H) <12 mg/dL [facility] Protein/Creati nine Ratio, Ur 3.41(H) <0.2 [facility] Comment:The spot urine prote in:creatinine ratio may increase to 0.3during normal . 12/08/2024 9:41 AM EDT 12/08/2024 11:14 AM EDT Generic External Data Provider LAB URINE ORDERAB LES Final Result [facility] [address] [place] [address] [phone] * Creatinine, Serum (12/08/2024 9:41 AM EDT) [facility] Creatinine, Serum 0.86 0.5 - 1.4 mg/dL [facility] Estimated Glomerular Filt Rate >60 [facility] Comment:Chronic Kidney Disea se: Estimated GFR < 60 mL/min/[id number] Kidney Disease: Estimated GFR < 15 mL/min/1.73m2 12/08/2024 9:41 AM EDT 12/08/2024 11:10 AM EDT us Generic External Data Provider LAB BLOOD ORDERAB LES Final Result Performing Organization Address [facility] de Phone Number [facility] [address] [place] [phone] * BUN (Blood Urea Nitrogen) (12/08/2024 9:41 AM EDT) Urea Nitrogen (BUN) 12 9 - 16 mg/dL [facility] 12/08/2024 9:41 AM EDT 12/08/2024 11:10 AM EDT us Generic External Data Provider LAB BLOOD ORDERAB LES Final Result Performing Organization Address [facility] de Phone Number [facility] [address] [place] [phone] * (ABNORMAL) Electrolyte Panel (12/08/2024 9:41 AM EDT) Sodium 141 135 - 145 mmol/L [facility] Potassium 4.3 3.3 - 5.1 mmol/L [facility] Comment:Slight Hemolysis.Int erpret result with caution. Chloride 113(H) 96 - 108 mmol/L [facility] Carbon Dioxide 23 22 - 29 mmol/L [facility] Anion Gap 9(L) 12 - 20 [facility] 12/08/2024 9:41 AM EDT 12/08/2024 11:10 AM EDT us Generic External Data Provider LAB BLOOD ORDERAB LES Final Result Performing Organization Address [facility] Co de Phone Number [facility] [address] [place] [phone] * HPV DNA, Low/High Risk (11/03/2024 1:26 PM EDT) HPV High Risk Negative Negative [facility] HPV Genotype 16 Negative Negative [facility] HPV Genotype 18 Negative Negative [facility] Comment:HPV testing performe d at [facility] (CLIA#[id number]), [address] [place] [phone].Testing for HPV was performed using the [employer] EULOGIO L-3 GCS0system. The presence of HPV in the female [...] 1:26 PM EDT 11/04/2024 7:35 AM EDT us Yariel Duvall [facility] BLOOD ORDERABLES Maria T field Result [facility] [address] [place] [phone] * Pap Smear (11/03/2024 1:26 PM EDT) Swab Cervix uteri structure / Unknown 11/03/2024 1:26 PM EDT 11/04/2024 7:35 AM EDT Narrative [facility] - 11/06/2024 8:18 AM EDT ----- ------- Name: Michele Preciado Age/Sex: 34/F : 1990 Unit#: [id number] Attend Dr: YARIEL DUVALL CNM Re11/03/24 Status: DEP REF Location: [facility] Disch: ----- ------- SPEC : [id number] RECD: 11/04/2435 STATUS: CEDRICK RAMOS NUM: [id number] LEIDY: 11/03/24-[address] [facility] [address]: YARIEL DUVALL CNM ENTERED: 11/04/2444 SP TYPE: Pap Smr OT DR: ORDERED: Pap Smear Interpretation Satisfactory for [...] and HPV testing will be performed at [facility] ([facility] #[id number]), [address] [place] [address]. Testing for HPV was performed using the [...] detected. All professional services are performed by [facility] ([address] [place] [address], [place] [address]; ; CLIA #[id number]). The PAP Test is a screening procedure with the inherent possibility of both false negative and false positive results. Results should be interpreted in the context of historic and current clinical findings. Reliability of the PAP Test is enhanced by performing the test on a regular repetitive basis. CONTINUED ON NEXT PAGE ----- ------- Name: Jay RgMichele Age/Sex: 34/F : 1990 Unit#: [id number] Attend Dr: YARIEL DUVALL CNM Re11/03/24 Status: DEP [facility] Disch: ----- ------- SPEC : [id number] RECD: 11/04/24 STATUS: CEDRICK RAMOS NUM: [id number] LEIDY: 11/03/24-[address] [facility] [address]: YARIEL DUVALL CNM ENTERED: 11/04/2444 SP TYPE: Zofia VU DR: ORDERED: Pap Smear ----- ------- Signed (signature on file) Kd BARRETT Correa ([facility]) 11/06/24 0818 ----- ------- END OF REPORT Yariel Duvall [facility] CYTOLOGY ORDERABLES F inal Result Performing Organization Address [facility]/ZIP Co de Phone Number [facility] [address] [place] [phone] * Hepatitis C Antibody with Reflex to HCV, RNA, Quantitative, Real-Time PCR (04/30/2024 9:42 AM EST) [facility] Hepatitis C Antibody Nonreactive Nonreactive [facility] Comment:Antibodies to HCV no t detected; does not exclude early acuteHCV infection. 04/30/2024 9:42 AM EST 04/30/2024 9:42 AM EST Generic External Data Provider LAB BLOOD ORDERAB LES Final Result Performing Organization Address [facility]/ZIP Co de Phone Number [facility] [address] [place] [phone] * POCT HGB A1C (04/02/2024 10:00 AM EST) Pathologist [facility] Hemoglobin A1C 5.9 4.0 - 6.0 % QC Media Lot # [id number] Lot# Expiration Date [id number] Blood 04/02/2024 10:0 0 AM EST Cipriano Pickens MD POINT OF CARE TEST ENTER/EDIT ORDERABLES Final Result from Last 3 Months or Most Recently Relevant to Health Maintenance Insurance [facility] C3 DENTAL-[facility] MEDICAID STAND ADULT Care Teams Swimming Pool Salesperson Relationship Specialty Start Date End Date Cipriano Palacio MD [address] [place] [phone] PCP - General Internal Medicine 03/24/24
[2025-02-10 14:54] LABS: Blood Urea Nitrogen 11 mg/dL (9-16)
[2025-02-10 14:56] LABS: Alanine Aminotransferase 15 U/L (0-31); Albumin Level 4.6 g/dL (3.5-5.0); Alkaline Phosphatase 81 U/L (39-117); Anion Gap 12 (12-20); Aspartate Amino Transferase 26 U/L (5-31); Blood Urea Nitrogen 11 mg/dL (9-16); Calcium 9.8 mg/dL (8.4-10.2); Carbon Dioxide 28 mmol/L (22-29); Chloride 105 mmol/L (96-108); Estimated Glomerular Filt Rate > 60; Potassium 4.0 mmol/L (3.3-5.1); Sodium 141 mmol/L (135-145); Total Protein 7.6 g/dL (6.5-8.0)
[2025-02-10 15:50] LABS: Protein/Creatinine Ratio, Ur 2.73 (<0.2); Total Protein Urine Random 441 mg/dL (<12)
[2025-03-03 03:02] LABS: Estradiol Ultra Sensitive 173 pg/mL
== END 2025-02-10 08:18 | disposition home or self-care (01) ==
LOC: HO.CHCLDS 08:17
PROVIDERS: Referring Provider Internal Medicine Nephrology; Visit Provider Internal Medicine
DX: R80.8 Other proteinuria (principal); N92.6 Irregular menstruation, unspecified; N05.1 Unspecified nephritic syndrome with focal and segmental glomerular lesions
CPT/HCPCS: 36415; 80053; 82570; 82670; 84146; 84156; 84520

== ENCOUNTER 2025-03-20 10:26 | Outpatient (AMB) | payer MEDICAID, SELFPAY ==
--- NOTE | 2025-03-20 10:30 | HO.NEPHOV_ITS ---
Vital Signs 03/20/25 10:32 Height 5 ft Weight 146 lb 6 oz BMI 28.6 BP 128/80 Blood Pressure Location Rt brachial Position Sitting Intake Visit Reasons: 3mon f/u w/labs-Conf Potato Chip Packaging Machine Operator Required: Yes Potato Chip Packaging Machine Operator Language: Swatch Checker Services: Potato Chip Packaging Machine Operator Offered & Declined ([facility] Potato Chip Packaging Machine Operator services refused ) Accompanied by: Sister Allergies No Known Allergies Allergy (Verified 03/20/25 10:32) HPI Comments Details: Michele is a 35 year old patient who moved to [facility] from [place] who is known to have proteinuria for a long time. She was seen for this by renal MD in [place] in the past and had work up including renal biopsy which showed FSGS. She was treated with prednisone as well as cyclosporine in the past . She has no edema and denies any frothy/foamy urine. Her last serum creatinine was 0.97. She has no H/O DVT's or PE's. She denies orthostatic symptoms. She has no family H/O FSGS. She does not have Kerendia and is currently not getting through her insurance company [facility] Medical History Proteinuria Surgical History Hx of tubal ligation Family History Paternal Grandmother Hypertension Diabetes High cholesterol Paternal Grandfather Diabetes High cholesterol Hypertension Social History Alcohol intake: current Comment: Socially Patient Tobacco Use Status: Never used Tobacco Review of Systems Const All systems reviewed & are unremarkable except as noted in HPI and below Physical Exam Vital Signs: Last Vital Signs BP 128/80 03/20/25 10:32 BMI result Body Mass Index 28.6 Const General: comfortable and no acute distress Orientation/consciousness: patient oriented x3 HEENT Head: Yes normocephalic Mouth: Normal oral and palatal mucosa present Eyes EOM: EOMs intact bilaterally Neck Neck: Yes supple Resp Auscultation: clear to auscultation bilaterally Cardio Jugular venous distension: no JVD Rate: regular rate GI Palpation (GI): Soft to palpation Auscultation: normal bowel sounds General: Yes no CVA tenderness Back/Spine/Pelvis Back: no CVA tenderness Skin General skin exam: no rashes or lesions noted Neuro General: patient oriented x3 and moves all extremities Extrem General: Yes no pedal edema Results Reviewed Nephrology Results: Sodium, (135-145) 141 mmol/L 02/10/25 Potassium, (3.3-5.1) 4.0 mmol/L 02/10/25 Chloride, (96-108) 105 mmol/L 02/10/25 Carbon Dioxide, (22-29) 28 mmol/L 02/10/25 BUN, (9-16) 11 mg/dL 02/10/25 Creatinine, (0.5-1.4) 0.97 mg/dL 02/10/25 Calcium, (8.4-10.2) 9.8 mg/dL Δ 02/10/25 Urine Creatinine 161.66 mg/dL 02/10/25 Protein/Creatinin Ratio, (<0.2) 2.73 H 02/10/25 Assessment & Plan Assessment & Plan (1) FSGS (focal segmental glomerulosclerosis): Code(s): N05.1 - Unspecified nephritic syndrome with focal and segmental glomerular lesions Category: Medical (2) Proteinuria: Code(s): R80.9 - Proteinuria, unspecified Category: Medical Qualifiers: Proteinuria type: other Qualified Code(s): R80.8 - Other proteinuria Plan Michele has H/O biopsy proven FSGS which was treated with prednisone as well as cyclosporin in [place]. Currently she is not on Finerenone . She is a potential candidate for Jardiance in the future. I increased her lisiniopril to 20 mg AM and 20 mg at night. She needs to cut back sodium in the diet. She should continue Vitamin D 2000 Units daily. She has requested her renal records from [place]. She may need a repeat renal biopsy as well as addition of further medications based on evolving data. She should avoid NSAID's. Answered all questions. F/U given Orders: Orders Electrolytes 4 Months N05.1 - Unspecified nephritic syndrome with focal and segmental glomerular lesions, R80.8 - Other proteinuria Blood Urea Nitrogen 4 Months N05.1 - Unspecified nephritic syndrome with focal and segmental glomerular lesions, R80.8 - Other proteinuria Creatinine 4 Months N05.1 - Unspecified nephritic syndrome with focal and segmental glomerular lesions, R80.8 - Other proteinuria Protein Creatinine Ratio, Ur 4 Months N05.1 - Unspecified nephritic syndrome with focal and segmental glomerular lesions, R80.8 - Other proteinuria Medications: Changed From lisinopril (3 x 10 mg) 30 mg orally take 10 mg AM and 20 mg PM; 90 days 270 tabs 6RF To lisinopril 20 mg PO BID 180 tabs 6RF 90 days Coding Level of Care Code Est Pt Level 4 (94495) Diagnoses FSGS (focal segmental glomerulosclerosis) N05.1 Other proteinuria R80.8 Proteinuria type: other
[2025-03-20 10:32] VITALS: BP 128/80; BMI 28.6
--- OUTSIDE RECORDS SUMMARY | 2025-03-20 11:50 | XMS_ITS | Encounter Summary ---
Author Organization [employer] Address [address] [facility] 7 [place] [address] Care Team Providers Care Air Conditioning Installer Name Role Phone Cipriano Palacio MD Primary Care Prov ider Encounter Details Date Type Department Care Team ([facility] st Contact Info) Description 01/22/2025 Orders Only [facility] CHC MED & PEDS [address] [place], [place] [phone] Cipriano Palacio MD [address] [place] [address] Social History Tobacco Use Types Packs/Day Years [...] documented as of this encounter Care Teams Air Conditioning Installer Relationship Specialty Start Date End Date Cipriano Palacio MD [address] [place] [phone] PCP - General Internal Medicine 03/24/24 documented as of this encounter
--- OUTSIDE RECORDS SUMMARY | 2025-03-20 11:50 | XMS_ITS | Encounter Summary ---
Author Organization [employer] Address [address] [facility] 7 [place] [address] Care Team Providers Care Research Assistant Member Name Role Phone Cipriano Palacio MD Primary Care Prov ider Encounter Details Date Type Department Care Team ([facility] st Contact Info) Description 01/23/2025 Orders Only [facility] CHC MED & PEDS [address] [place], [place] [phone] Matias Black MD [address] [place] [address] Chronic bilateral low back pain without sciatica [...] documented as of this encounter Care Teams Research Assistant Member Relationship Specialty Start Date End Date Cipriano Palacio MD [address] [place] [phone] PCP - General Internal Medicine 03/24/24 documented as of this encounter
--- OUTSIDE RECORDS SUMMARY | 2025-03-20 11:50 | XMS_ITS | Encounter Summary ---
Author Organization [employer] Address [address] [facility] [address] 7t [place] [address] Care Team Providers Care Hospitality Job Titles Name Role Phone Cipriano Palacio MD Primary Care Prov ider Encounter Details Date Type Department Care Team (Late st Contact Info) Description 01/20/2025 Telephone [facility] MEDICINE [address] [place] [address] Cipriano Palacio MD [address] [place] [address] Social History Tobacco Use Types Packs/Day Years [...] a medication, Tramadol Please contact pt at [phone] documented in this encounter Plan of Treatment Not on file documented as of this encounter Visit Diagnoses Not on filedocumented in this encounter Additional Health Concerns Assessment Noted Time PHQ-9 Depression Total Score: 2 03/24/20 24 9:25 AM EST documented as of this encounter Care Teams Hospitality Job Titles Relationship Specialty Start Date End Date Cipriano Palacio MD [address] [place] [phone] PCP - General Internal Medicine 03/24/24 documented as of this encounter
--- OUTSIDE RECORDS SUMMARY | 2025-03-20 11:50 | XMS_ITS | Encounter Summary ---
Author Organization [employer] Address [address] [place] [address] Care Team Providers Care Rail Car Painter/Sandblaster Name Role Phone Cipriano Palacio MD Primary Care Prov ider Reason for Visit * Reason Onset Date Comments Med Refill 12/30/2024 Encounter Details Date Type Department Care Team ([facility] st Contact Info) Description 12/30/2024 Refill [facility] CHC MED & PEDS [address] [place] [address] Cipriano Palacio MD [address] [place] [address] Social History Tobacco Use Types Packs/Day Years [...] documented as of this encounter Care Teams Rail Car Painter/Sandblaster Relationship Specialty Start Date End Date Cipriano Palacio MD [address] [place] [phone] PCP - General Internal Medicine 03/24/24 documented as of this encounter
--- OUTSIDE RECORDS SUMMARY | 2025-03-20 11:50 | XMS_ITS | Clinical Summary ---
Author Organization [employer] Address [address] [facility] 7t [place] [address] Care Team Providers Care Home Health Lpn Name Role Phone Cipriano Palacio MD Primary [...] 08/04/2024 Chronic diarrhea 07/17/2024 Assessment & Plan (02/11/2025 5:14 PM EDT): Patient has been trying diet, avoiding certain meals, but continue with episode of diarrhea, will refer to GI for evaluation Assessment & Plan (07/30/2024 3:06 PM EDT): [...] Focal segmental glomerulosclerosis 04/02/2024 Assessment & Plan (02/11/2025 5:15 PM EDT): Followed by nephrology, on JYOTI, follow up nephrology reccomendations Assessment & Plan (07/17/2024 2:09 PM EST): [...] (03/24/2024 2:49 PM EST): Patient moved from [place], she had kidney biopsy, is on kerendia 10mg and lisinopril 2.5mg, will refer to nephrology Infertility counseling 03/24/2024 Assessment & Plan (03/24/2024 2:51 PM EST): Patient underwent tubal ligation 10 years ago, she is interested in getting , will refer to fertility clinic to review options Encounters Date Type Department Care Team Description 02/10/2025 Orders Only GENERIC EXTERNAL DATA DEPARTMENT Provider, Generic External Data 02/09/2025 8:30 AM EDT Office Visit [facility] MED & PEDS [address] [place] [address] Cipriano Palacio MD Missed period (Primary Dx); Chronic diarrhea; Focal segmental glomerulosclerosis 02/09/2025 Travel 02/06/2025 Telephone [facility] MED & PEDS [address] [place] [address] Cipriano Palacio MD chart prep 01/23/2025 Orders Only [facility] MED & PEDS [address] [place] [address] Matias Black MD Chronic bilateral low back pain without sciatica (Primary Dx) 01/22/2025 Orders Only [facility] CHC MED & PEDS [address] [place] [address] Cipriano Palacio MD 01/22/2025 Telephone [facility] MED & PEDS [address] [place] [address] Cipriano Palacio MD Medication Question; Referral 01/20/2025 Telephone [facility] [address] [place] [phone] Cipriano Palacio MD 01/15/2025 11:15 AM EDT Telemedicine [facility] MED [facility] PEDS [address] [place] [address] Cipriano Palacio MD Chronic bilateral low back pain without sciatica (Primary Dx) 01/15/2025 Travel 01/14/2025 Telephone [facility] MED [facility] PEDS [address] [place] [address] Cipriano Palacio MD No Show 01/14/2025 Telephone [facility] PED[facility] [address] [place] [address] Cipriano Palacio MD telehealth 01/14/2025 Telephone [facility] MED [facility] PEDS [address] [place] [address] Cipriano Palacio MD 01/14/2025 Travel 01/14/2025 Telephone [facility] MED & PEDS [address] [place] [address] Cipriano Palacio MD Appointment Request 12/30/2024 Refill [facility] PEDS [address] [place] [address] Cipriano Palacio MD 12/30/2024 Refill [facility] MED & PEDS [address] [place] [address] Cipriano Palacio MD 12/18/2024 3:20 PM EDT Office Visit [facility] [address] [place] [phone] Jenna Elizabeth MD Left acute otitis media (Primary Dx); Pharyngitis, unspecified etiology 12/18/2024 Travel from Last 3 Months Family History [...] Procedure Name Priority Date/Time Associated Diagnosis Comments AMB REFERRAL TO GASTROENTEROLOGY Routine 02/24/2025 Chronic diarrhea PROTEIN CREATININE RATIO, URINE Routine 02/10/2025 8:26 AM EDT COMPREHENSIVE METABOLIC PANEL Routine 02/10/2025 8:26 AM EDT Missed period UREA NITROGEN (BUN) Routine 02/10/2025 8 :24 AM EDT ESTRADIOL Routine 02/10/2025 8:24 AM EDT Missed period PROLACTIN Routine 02/10/2025 8:24 AM EDT Missed period XR LUMBAR SPINE 2-3 VIEWS Routine 01/28/2025 11:11 AM EDT Chronic bilateral low back pain without sciatica POCT RAPID COVID ANTIGEN Routine 025 3:36 PM EDT Pharyngitis, unspecified etiology POCT INFLUENZA B (ID NOW RAPID MOLECULAR) Routine 12/18/2024 3:36 PM EDT Pharyngitis, unspecified etiology POCT INFLUENZA A (ID NOW RAPID MOLECULAR) Routine 12/18/2024 3:36 PM EDT Pharyngitis, unspecified etiology POCT RAPID STREP A Routine 12/18/2024 3: 29 PM EDT Pharyngitis, unspecified etiology HPV DNA, LOW/HIGH RISK Routine 1:26 PM EDT PAP SMEAR Routine 11/03/2024 1:26 PM EDT Routine cervical smear HEPATITIS C AB W/REFL TO HCV RNA, QN, PCR Routine 04/30/2024 9:42 AM EST POCT GLYCATED HEMOGLOBIN, TOTAL Routine 04/02/2024 10:00 AM EST Prediabetes from Last 3 Months or Most Recently Relevant to Health Maintenance Results * Referral to Gastroenterology (02/24/2025) us Cipriano Pickens MD OUTPATIENT REFERRA L ORDERABLES Final Result * (ABNORMAL) Protein Creatinine Ratio, Urine (02/10/2025 8:26 AM EDT) Creatinine, Urine 161.66 mg/dL [facility] Protein, Total, Random Urine 441(H) <12 mg/dL [facility] Protein/Creati nine Ratio, Ur 2.73(H) <0.2 [facility] Comment:The spot urine prote in:creatinine ratio may increase to 0.3during normal . 02/10/2025 8:26 AM EDT 02/10/2025 2:17 PM EDT us Generic External Data Provider LAB URINE ORDERAB LES Final Result [facility] [address] [place] [phone] * Comprehensive Metabolic Panel (02/10/2025 8:26 AM EDT) Sodium 141 135 - 145 mmol/L [facility] Potassium 4.0 3.3 - 5.1 mmol/L [facility] Chloride 105 96 - 108 mmol/L [facility] Carbon Dioxide 28 22 - 29 mmol/L [facility] Anion Gap 12 12 - 20 [facility] Urea Nitrogen (BUN) 11 9 - 16 mg/dL [facility] Creatinine, Serum 0.97 0.5 - 1.4 mg/dL [facility] Estimated Glomerular Filt Rate >60 [facility] Comment:Chronic Kidney Disea se: Estimated GFR < 60 mL/min/[id number] Kidney Disease: Estimated GFR < 15 mL/min/1.73m2 Glucose 95 60 - 115 mg/dL [facility] Calcium 9.8 8.4 - 10.2 mg/dL [facility] Bilirubin, Total 0.5 0.0 - 1.0 mg/dL [facility] Aspartate Amino Transferase 26 5 - 31 U/L [facility] Alanine Aminotransferase 15 0 - 31 U/L [facility] Total Protein 7.6 6.5 - 8.0 g/dL [facility] Albumin Level 4.6 3.5 - 5.0 g/dL [facility] Alkaline Phosphatase 81 39 - 117 U/L [facility] Blood Venous blood specimen / Unknown 02/10/2025 8:26 AM EDT 02/10/2025 2:29 PM EDT us Cipriano Pickens MD LAB BLOOD ORDERABL ES Final Result [facility] [address] [place], [place] [phone] * Prolactin (02/10/2025 8:24 AM EDT) Prolactin 10.1 ng/mL [facility] Comment:Reference Range Fema les Non- 3.0-30.0 10.0-209.0 Postmenopausal 2.0-20.0THIS TEST WAS PERFORMED AT:[facility] [address] [id number] WATERS MD Blood Venous blood specimen / Unknown 02/10/2025 8:24 AM EDT 02/10/2025 2:29 PM EDT Cipriano Pickens MD LAB BLOOD ORDERABL ES Final Result Performing Organization Address [facility]/ZIP Co de Phone Number [facility] [address] [place] [phone] * Estradiol (02/10/2025 8:24 AM EDT) Estradiol Ultra Sensitive 173 pg/mL [facility] Comment:Female Reference Ran ges for Estradiol, Ultrasensitive (pg/mL): Follicular Phase: 39-375 Luteal Phase: 48-440 Postmenopausal Phase: < or = 10This test was developed and its analytical performancecharacteristics have been determined by [employer].It has not been cleared or approved by the FDA. This assayhas been validated pursuant to the CLIA regulations and isused for clinical purposes.THIS TEST WAS PERFORMED AT:[employer] [id number] [place] [address]LEZCWAMANDA CROWDER MD,PHD,SHANE Blood Venous blood specimen / Unknown 02/10/2025 8:24 AM EDT 02/10/2025 2:29 PM EDT Cipriano Pickens MD LAB BLOOD ORDERABL ES Final Result Performing Organization Address City/[facility]/ZIP Co de Phone Number [facility] [address] [place] [phone] * BUN (Blood Urea Nitrogen) (02/10/2025 8:24 AM EDT) Urea Nitrogen (BUN) 11 9 - 16 mg/dL [facility] 02/10/2025 8:24 AM EDT 02/10/2025 2:29 PM EDT us Generic External Data Provider LAB BLOOD ORDERAB LES Final Result [facility] [address] [place] [phone] * XR Lumbar Spine 2-3 Views (01/28/2025 11:11 AM EDT) Anatomical Region Laterality Modality Spine, L-spine Radiographic Gertrudis ging 01/28/2025 11:1 1 AM EDT Narrative 01/28/2025 11:23 AM EDT [address] [address] XRay Report Signed Patient: Michele Preciado MR #: [id number] : 1990 Acct:[id number] Age/Sex: 35 / F ADM Date: 01/28/25 Loc: HO.XRAY Attending Dr: Cipriano Pickens MD Ordering Physician: Cipriano Palacio MD Date of Service: 01/28/25 Procedure(s): XR lumbar spine 2-3V Accession Number(s): [id number] cc: Cipriano Palacio MD Reason for Exam: [...] 01/28/25 1120 DD/ 1111 TD/TT: 01/28/25 1115 [employer]cel Post Officer: Procedure Note Kentrellter, Image - 01/28/[address] [address] XRay Report Signed Patient: Michele PreciadoMR #: [id number] : 1990Acct:[id number] Age/Sex: 35 / FADM Date: 01/28/25 Loc: HO.XRAY Attending Dr: Cipriano Pickens MD Ordering Physician: Cipriano Palacio MD Date of Service: 01/28/25 Procedure(s): XR lumbar spine 2-3V Accession Number(s): [id number] cc: Cipriano Palacio MD Reason for Exam: [...] 01/28/25 1120 DD/ 1111 TD/TT: 01/28/25 1115 [employer] Officer: Cipriano Pickens MD IMG XR PROCEDURES Final Result * Influenza B (ID NOW Rapid Molecular) (12/18/2024 3:36 PM EDT) [facility] Influenza B Negative Negative, Indeterminate [facility] Swab 12/18/2024 3:36 PM EDT Jenna Elizabeth MD POINT OF CARE TEST ENTER/E DIT ORDERABLES Final Result Performing Organization Address [facility]/ZIP Co de Phone Number [facility] [address] [place] [phone] * Influenza A (ID NOW Rapid Molecular) (12/18/2024 3:36 PM EDT) [facility] Influenza A Negative Negative, Indeterminate [facility] Swab 12/18/2024 3:36 PM EDT Jenna Elizabeth MD POINT OF CARE TEST ENTER/E DIT ORDERABLES Final Result Performing Organization Address [facility] Co de Phone Number [facility] [address] [place] [phone] * POCT Rapid COVID Ag (12/18/2024 3:36 PM EDT) [facility] Rapid COVID Ag Negative Swab 12/18/2024 3:36 PM EDT Jenna Elizabeth MD POINT OF CARE TEST ENTER/E DIT ORDERABLES Final Result * POCT rapid strep A manually resulted (12/18/2024 3:29 PM EDT) [facility] Rapid Strep A Screen Negative Negative, None Detected Swab 12/18/2024 3:29 PM EDT Jenna Elizabeth MD POINT OF CARE TEST ENTER/E DIT ORDERABLES Final Result * HPV DNA, Low/High Risk (11/03/2024 1:26 PM EDT) [facility] HPV High Risk Negative Negative [facility] HPV Genotype 16 Negative Negative [facility] HPV Genotype 18 Negative Negative [facility] Comment:HPV testing performe d at [facility] (CLIA#[id number]), [address] [place] [phone].Testing for HPV was performed using the Jose [...] EDT 11/04/2024 7:35 AM EDT Yariel Duvall [facility] LAB BLOOD ORDERABLES Maria T rashida Result [facility] [address] [place] [phone] * Pap Smear (11/03/2024 1:26 PM EDT) Swab Cervix uteri structure / Unknown 11/03/2024 1:26 PM EDT 11/04/2024 7:35 AM EDT Narrative [facility] - 11/06/2024 8:18 AM EDT ----- ------- Name: Michele Preciado Age/Sex: 34/F : 1990 Unit#: [id number] Attend Dr: YARIEL DUVALL CNM Re11/03/24 Status: [facility] REF Location: [facility] Disch: ----- ------- SPEC : [id number] RECD: 11/04/24 STATUS: CEDRICK RAMOS NUM: [id number] LEIDY: 11/03/[address] [facility] [address]: YARIEL DUVALL ENTERED: 11/04/24 SP TYPE: Pap Smr OTHR DR: ORDERED: Pap Smear Interpretation Satisfactory for [...] and HPV testing will be performed at [facility] (CLIA #[id number]), [address] [place] [address]. Testing for HPV was performed using the [...] detected. All professional services are performed by [facility] ([address] [place] [address], [place] [address]; ; CLIA #[id number]). The PAP Test is a screening procedure with the inherent possibility of both false negative and false positive results. Results should be interpreted in the context of historic and current clinical findings. Reliability of the PAP Test is enhanced by performing the test on a regular repetitive basis. CONTINUED ON NEXT PAGE ----- ------- Name: Jay RgMichele Age/Sex: 34/F : 1990 Unit#: [id number] Attend Dr: YARIEL DUVALL CNM Re11/03/24 Status: [facility] Disch: ----- ------- SPEC : [id number] RECD: 11/04/24 STATUS: CEDRICK RAMOS NUM: [id number] LEIDY: 11/03/24-[address] [facility] [address]: YARIEL DUVALL ENTERED: 11/04/2444 SP TYPE: Pap West VU DR: ORDERED: Pap Smear ----- ------- Signed (signature on file) BARRETT Bui ([facility]) 11/06/24 0818 ----- ------- END OF REPORT us Yariel Duvall [facility] LAB CYTOLOGY ORDERABLES F inal Result Performing Organization Address [facility]/ZIP Co de Phone Number [facility] [address] [place] [phone] * Hepatitis C Antibody with Reflex to HCV, RNA, Quantitative, Real-Time PCR (04/30/2024 9:42 AM EST) [facility] Hepatitis C Antibody Nonreactive Nonreactive [facility] Comment:Antibodies to HCV no t detected; does not exclude early acuteHCV infection. 04/30/2024 9:42 AM EST 04/30/2024 9:42 AM EST Generic External Data Provider LAB BLOOD ORDERAB LES Final Result Performing Organization Address [facility]/ZIP Co de Phone Number [facility] [address] [place] [phone] * POCT HGB A1C (04/02/2024 10:00 AM EST) Pathologist [facility] Hemoglobin A1C 5.9 4.0 - 6.0 % QC Media Lot # [id number] Lot# Expiration Date [id number] Blood 04/02/2024 10:0 0 AM EST Cipriano Pickens MD POINT OF CARE TEST ENTER/EDIT ORDERABLES Final Result from Last 3 Months or Most Recently Relevant to Health Maintenance Insurance [facility] [facility] C3 DENTAL-[employer] MEDICAID STAND ADULT Care Teams Home Health Lpn Relationship Specialty Start Date End Date Cipriano Palacio MD [address] [place] [phone] PCP - General Internal Medicine 03/24/24
--- OUTSIDE RECORDS SUMMARY | 2025-03-20 11:50 | XMS_ITS | Encounter Summary ---
Author Organization [employer] Address [address] [place] [address] Care Team Providers Care Survey Technologist Name Role Phone Cipriano Palacio MD Primary Care Prov ider Reason for Visit * Reason Onset Date Comments Results 03/27/2024 Encounter Details Date Type Department Care Team ([facility] st Contact Info) Description 03/27/2024 Telephone [facility] MEDICINE [address] [place] [address] Cipriano Palacio MD [address] [place] [phone] Results Social History Tobacco Use Types Packs/Day [...] results: Labs Date when done: 03/25/24 Facility: [facility] Labs (Armenian Speaker) documented in this encounter Plan of Treatment Not on file documented as of this encounter Visit Diagnoses Not on filedocumented in this encounter Additional Health Concerns Assessment Noted Time PHQ-9 Depression Total Score: 2 03/24/20 9:25 AM EST documented as of this encounter Care Teams Survey Technologist Relationship Specialty Start Date End Date Cipriano Palacio MD [address] [place] [phone] PCP - General Internal Medicine 03/24/24 documented as of this encounter
== END 2025-03-20 10:44 | disposition home or self-care (01) ==
LOC: HO.HKA 10:27
PROVIDERS: PCP Internal Medicine; Visit Provider Internal Medicine Nephrology
DX: N05.1 Unspecified nephritic syndrome with focal and segmental glomerular lesions (principal); R80.8 Other proteinuria
CPT/HCPCS: 99214

== ENCOUNTER → 2025-03-20 10:26 | Outpatient (BNVA) | payer MEDICAID, SELFPAY | PROVIDERS: PCP Internal Medicine; Visit Provider Internal Medicine Nephrology | DX: N05.1 Unspecified nephritic syndrome with focal and segmental glomerular lesions (principal); R80.8 Other proteinuria | CPT/HCPCS: 99212 ==

== ENCOUNTER 2025-04-07 08:33 | Outpatient (REF) | payer MEDICAID, SELFPAY ==
[2025-04-07 20:43] LABS: Total Volume 24 Hour Urine 1075 mL
[2025-04-07 20:59] LABS: Creatinine, mg/dL 119.29
[2025-04-07 21:17] LABS: Microalbumin 24 Hour Urine > 2000.0 mg/L; Microalbumin Excretion Rate Ur 2150 mg/24Hr
== END 2025-04-07 08:34 | disposition home or self-care (01) ==
LOC: HO.CHCLNP 08:33
PROVIDERS: PCP Internal Medicine; Visit Provider Internal Medicine
DX: M54.50 Low back pain, unspecified (principal); G89.29 Other chronic pain
CPT/HCPCS: 82043; 84156